=== PATIENT | male | born 1945 | race Caucasian/White ===

== ENCOUNTER 2019-04-03 13:46 | Inpatient (IN) | payer OTHER ==
--- NOTE | 2019-04-03 14:34 | PDOC ---
History of Present Illness - General Chief Complaint: Injury Stated Complaint: FALL Time Seen by Provider: 04/03/19 14:09 - History of Present Illness Initial Comments: 04/03/19 16:14 The patient is a 73 year old male with a history of Afib, CVA, COPD, HTN, HLD who presents for evaluation following a fall. The patient states that he was recently in rehab and discharged home 4 days ago and has been living at home with his daughter. He states that 3 days ago, he fell while sitting on the toilet with head trauma at that time but did not seek medical evaluation at that time. He states that 1 day ago, he slipped out of his chair and fell onto his buttocks and has been unable to ambulate since then due to left hip pain prompting his presentation to the ED for further evaluation. He otherwise denies headache, fevers, chills, SOB, chest pain, nausea, vomiting, abdominal pain, numbness, tingling, or weakness. Past History - Past Medical History Allergies/Adverse Reactions: Allergies Allergy/AdvReac Type Severity Reaction Status Date / Time lisinopril Allergy Verified 04/03/19 14:04 "all prils" Allergy Uncoded 04/03/19 14:04 Home Medications: Ambulatory Orders Aspirin Coated [Ecotrin -] 81 mg PO DAILY 04/03/19 Atorvastatin Calcium 40 mg PO HS 04/03/19 Carvedilol [Coreg -] 3.125 mg PO BID 04/03/19 Colchicine [Colcrys] 0.6 mg PO DAILY 04/03/19 Ferrous Fumarate 324 mg PO DAILY 04/03/19 Folic Acid - 1 mg PO DAILY 04/03/19 Furosemide [Lasix] 40 mg PO DAILY 04/03/19 Ipratropium/Albuterol Sulfate [Iprat-Albut 0.5-3(2.5) mg/3 ml] 3 ml IH QID 04/03 Levothyroxine [Synthroid -] 25 mcg PO DAILY 04/03/19 Melatonin 3 mg PO HS 04/03/19 Pantoprazole Sodium [Protonix -] 40 mg PO DAILY 04/03/19 Tamsulosin HCl [Flomax] 0.4 mg PO DAILY 04/03/19 Thiamine HCl [B-1] 100 mg PO DAILY 04/03/19 predniSONE [Deltasone -] 40 mg PO DAILY 04/03/19 Cardiac Disorders: Yes (a fib) CVA: Yes COPD: Yes HTN: Yes Hypercholesterolemia: Yes Thyroid Disease: Yes (hypo) Other medical history: compression fx T7-12 and L1-L2, former drinker, smoker - Psycho Social/Smoking Cessation Hx Smoking History: Current every day smoker Information on smoking cessation initiated: No Hx Alcohol Use: Yes Review of Systems - Review of Systems Comments:: 04/03/19 16:17 Constitutional: No fevers, chills, fatigue, malaise HEENT: No Rhinorrhea, nasal congestion, visual changes Cardiovascular: No chest pain, syncope, palpitations, lightheadedness Respiratory: No Cough, SOB, Hemoptysis, Gastrointestinal: No Abdominal pain, Nausea, Vomiting, Constipation, Diarrhea, Melena Genitourinary: No Dysuria, Frequency, Urgency, Hesitancy, Hematuria, Flank pain Musculoskeletal: Left hip pain. No Myalgia, arthralgia Skin: No rashes, itching, bruising, pallor Neurologic: No Headache, Dizziness, Numbness, Weakness, or Tingling Psychiatric: No Hallucinations. No SI or HI *Physical Exam - Vital Signs Last Vital Signs Temp Pulse Resp BP Pulse Ox 97.9 F 96 H 22 H 126/77 97 04/03/19 14:06 04/03/19 14:06 04/03/19 14:06 04/03/19 14:06 04/03/19 14:06 - Physical Exam 04/03/19 16:18 General Appearance: Nourished. No Apparent Distress HEENT: EOMI, ALANA. No Pharyngeal Erythema, Tonsillar Exudate, Tonsillar Erythema Neck: No Cervical Lymphadenopathy Respiratory/Chest: Lungs Clear, Normal Breath Sounds. No Crackles, Rales, Rhonchi, Wheezing Cardiovascular: Regular Rhythm, Regular Rate. No Murmur, Gallops, Rubs Gastrointestinal/Abdominal: Normal Bowel Sounds, Soft. No Guarding, Rebound, Tenderness Musculoskeletal: Pain with active and passive movement of the left hip. No tenderness to palpation of the left hip or femur. 2+ dp pulsese bilaterally. Sensation to light touch and temperature intact. 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 Given the patient's history and physical exam, we will obtain a cbc, cmp, troponin, plain films to evaluate further. We will continue to monitor and reassess while here in the ED. 04/03/19 19:32 CBc, cmp, troponin were unremarkable. Plain films did not demonstrate any acute process as read by our radiologist. We obtained CT imaging to evaluate further. Head and cervical spine CT demonstrated no acute findings as read by our radiologist. Pelvis CT demonstrated acute bilateral sacral alae fractures, Chronic appearing right superior and inferior pubuc rami fractures extending into the pelvic tubercle, chronic transvers sacral fracture at S2, chronic compression fracture at L4 and L5 as read by our radiologist. The patient has had continued pain despite morphine and has continued to be unable to ambulate here in the ED. He will require admission for further monitoring and management. Discharge - Discharge Information Problems reviewed: Yes Clinical Impression/Diagnosis: Intractable pain Sacral fracture Qualifiers: Encounter type: initial encounter Zone of sacrum fracture: unspecified portion of sacrum Fracture type: closed Qualified Code(s): S32.10XA - Unspecified fracture of sacrum, initial encounter for closed fracture Condition: Stable - Admission Yes - Follow up/Referral - Patient Discharge Instructions - Post Discharge Activity
[2019-04-03 15:48] LABS: BASO % 0.7 % (0-2.0); HEMATOCRIT 37.2 % (35.4-49); HEMOGLOBIN 12.3 GM/dL (11.7-16.9); LYMPH % 12.3 % (8-40); MCH 28.6 pg (25.7-33.7); MCHC 33.1 g/dl (32.0-35.9); MEAN CELL VOLUME 86.6 fl (80-96); MEAN PLT VOLUME 8.2 fl (7.5-11.1); MONO % 9.5 % (3.8-10.2); NEUT % 72.5 % (42.8-82.8); PLATELET COUNT 369 K/MM3 (134-434); RBC 4.29 M/mm3 (4.00-5.60); RDW 17.8 % (11.9-15.9); WHITE BLOOD COUNT 12.7 K/mm3 (4.0-10.0)
[2019-04-03 16:12] LABS: ALBUMIN 3.3 g/dl (3.4-5.0); ALK PHOS 169 U/L (45-117); ANION GAP 8 MMOL/L (8-16); BILIRUBIN,TOTAL 1.2 mg/dL (0.2-1); BLOOD UREA NITROGEN 17.5 mg/dL (7-18); CALCIUM 9.1 mg/dL (8.5-10.1); CHLORIDE 98 mmol/L (98-107); CO2 31 mmol/L (21-32); CREATININE 1.1 mg/dL (0.55-1.3); GLUCOSE,RANDOM 78 mg/dL (74-106); POTASSIUM 4.2 mmol/L (3.5-5.1); SGOT/AST 22 U/L (15-37); SGPT/ALT 30 U/L (13-61); SODIUM 136 mmol/L (136-145); TOT PROT 7.2 g/dl (6.4-8.2)
[2019-04-03] MEDS ORDERED: ACETAMINOPHEN 1000 MG/100 ML VIAL (NON FORMULARY) IVPB ONE (17:31)
[2019-04-03] MEDS ORDERED: ACETAMINOPHEN INJECTION 100 ML IVPB ONE (17:37)
[2019-04-03] MEDS ORDERED: morphine CARPU-JECT 4 MG/1 ML DISP.SYRIN IVPUSH ONE (18:21)
[2019-04-03] MEDS ORDERED: morphine SULFATE 4 MG/ML VIAL ONE (18:22)
--- NOTE | 2019-04-03 21:23 | HP ---
CHIEF COMPLAINT:hip pain s/p fall PCP: does not have one HISTORY OF PRESENT ILLNESS: 73 yo M PMH of COPD ( on 2L home O2), Afib ( not on AC) , CAD ( s/p stents), CVA (2019), HTN, hypothyroidism, HLD, L hip fx presents to ED s/p fall. pt states that over the past week he has fallen twice. pt states that the first time he fell on Tuesday he was in the bathroom and lost balance and hit his head. The second time he fell was yesterday and he fell off his bed onto his buttock. he states that both times he fell was because of his leg pain. pt denies loss of consciousness both times. he denies chest pain, dizziness, palpitations. pt states that he was recently at a rehab in [place], [place] for a R hip fracture ( 2/2 mechanical fall). Since he left the rehab, he moves in with his daughter who tries to help him. 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 pt states he hasnt followed up witha physician in over 3 years ER course was notable for: (1)head CT negative for acute intracranial pathology (2)CT pelvis- acute vs subacute sacral Fx Recent Travel: denies PAST MEDICAL HISTORY: HTN, COPD ( on 2L O2) , Afib ( not on AC) , CAD ( s/p stents), CVA (2019), HTN , hypothyroidism, HLD, prior L hip fx PAST SURGICAL HISTORY: penile implant cardiac stent tonsillectomy Social History: Smoking: > 40 pk yr hx. quit 1 yr ago Alcohol:use to drink excessively, quit 1 yr ago Drugs: denies Allergies lisinopril Allergy (Verified 04/03/19 14:04) "all prils" Allergy (Uncoded 04/03/19 14:04) HOME MEDICATIONS: Home Medications Medication Instructions Recorded Aspirin Coated [Ecotrin -] 81 mg PO DAILY 04/03/19 Atorvastatin Calcium 40 mg PO HS 04/03/19 Carvedilol [Coreg -] 3.125 mg PO BID 04/03/19 Colchicine [Colcrys] 0.6 mg PO DAILY 04/03/19 Ferrous Fumarate 324 mg PO DAILY 04/03/19 Folic Acid - 1 mg PO DAILY 04/03/19 Furosemide [Lasix] 40 mg PO DAILY 04/03/19 Ipratropium/Albuterol Sulfate 3 ml IH QID 04/03/19 [Iprat-Albut 0.5-3(2.5) mg/3 ml] Levothyroxine [Synthroid -] 25 mcg PO DAILY 04/03/19 Melatonin 3 mg PO HS 04/03/19 Pantoprazole Sodium [Protonix -] 40 mg PO DAILY 04/03/19 Tamsulosin HCl [Flomax] 0.4 mg PO DAILY 04/03/19 Thiamine HCl [B-1] 100 mg PO DAILY 04/03/19 predniSONE [Deltasone -] 40 mg PO DAILY 04/03/19 REVIEW OF SYSTEMS CONSTITUTIONAL: Absent: fever, chills, diaphoresis, generalized weakness, malaise, loss of appetite, weight change HEENT: Absent: rhinorrhea, nasal congestion, throat pain, throat swelling, difficulty swallowing, mouth swelling, ear pain, eye pain, visual changes CARDIOVASCULAR: Absent: chest pain, syncope, palpitations, irregular heart rate, lightheadedness , peripheral edema RESPIRATORY: Absent: cough, shortness of breath, dyspnea with exertion, orthopnea, wheezing, stridor, hemoptysis GASTROINTESTINAL: Present: abdominal distension Absent: abdominal pain, nausea, vomiting, diarrhea, constipation, melena, hematochezia GENITOURINARY: Absent: dysuria, frequency, urgency, hesitancy, hematuria, flank pain, genital pain MUSCULOSKELETAL: Present: b/l leg pain, hip pain b/l Absent: myalgia, arthralgia,neck pain SKIN: Absent: rash, itching, pallor HEMATOLOGIC/IMMUNOLOGIC: Absent: easy bleeding, easy bruising, lymphadenopathy, frequent infections ENDOCRINE: Absent: unexplained weight gain, unexplained weight loss, heat intolerance, cold intolerance NEUROLOGIC: Present: unsteady gait Absent: headache, focal weakness or paresthesias, dizziness, seizure, mental status changes, bladder or bowel incontinence PSYCHIATRIC: Absent: anxiety, depression, suicidal or homicidal ideation, hallucinations. PHYSICAL EXAMINATION Vital Signs - 24 hr 04/03/19 04/03/19 14:06 19:24 Temperature 97.9 F 97.9 F Pulse Rate 96 H Pulse Rate [ 78 Right Radial] Respiratory 22 H Rate Blood Pressure 126/77 Blood Pressure 106/65 [Right Arm] O2 Sat by Pulse 97 94 L Oximetry (%) GENERAL: Awake, alert, and fully oriented, in no acute distress. HEAD: Normal with no signs of trauma. EYES: Pupils equal, round and reactive to light, extraocular movements intact, sclera icteric EARS, NOSE, THROAT: nares patent, oropharynx clear without exudates. Moist mucous membranes. NECK: Normal range of motion, supple without lymphadenopathy LUNGS: Breath sounds equal b/l, scattered wheezes b/l. No accessory muscle use. HEART: Regular rate and rhythm, normal S1 and S2 without murmur, rub or gallop. ABDOMEN: nontender, distended, normoactive bowel sounds, no guarding, no rebound,RUQ hernia palpated. caput medusae noted MUSCULOSKELETAL: decreased ROM at L hip. pelvis is stable and intact, non tender to palpation. no midline or paraspinal tenderness UPPER EXTREMITIES: 2+ pulses, warm, well-perfused. No cyanosis. No clubbing. No peripheral edema. LOWER EXTREMITIES: 2+ pulses, warm, well-perfused. No calf tenderness. No peripheral edema. bruising noted on b/l patellar. multiple scrapes and lesions on legs b/l NEUROLOGICAL: Cranial nerves II-XII intact. Normal speech. gait not observed PSYCHIATRIC: Cooperative. Good eye contact. Appropriate mood and affect. SKIN: Warm, dry, normal turgor, no rashes or lesions noted, normal capillary refill. Laboratory Results - last 24 hr 04/03/19 04/03/19 04/03/19 15:00 15:00 15:00 WBC 12.7 H RBC 4.29 Hgb 12.3 Hct 37.2 MCV 86.6 MCH 28.6 MCHC 33.1 RDW 17.8 H Plt Count 369 MPV 8.2 Absolute Neuts (auto) 9.2 H Neutrophils % 72.5 Lymphocytes % 12.3 Monocytes % 9.5 Eosinophils % 5.0 H Basophils % 0.7 Nucleated RBC % 0 PTT (Actin FS) 35.0 Sodium 136 Potassium 4.2 Chloride 98 Carbon Dioxide 31 Anion Gap 8 BUN 17.5 Creatinine 1.1 Est GFR (CKD-EPI)AfAm 75.71 Est GFR (CKD-EPI)NonAf 65.32 Random Glucose 78 Calcium 9.1 Total Bilirubin 1.2 H AST 22 ALT 30 Alkaline Phosphatase 169 H Troponin I < 0.02 Total Protein 7.2 Albumin 3.3 L Hip Pelvis XR: An AP view of the pelvis and 2 views of the left hip were submitted. The hips appear symmetrical with no sign of fracture or subluxation and no sign of blastic or lytic changes. There are heavy vascular calcifications. There is evidence of old trauma involving the right superior and inferior pubic rami. There is a penile prosthesis. There is nonspecific bowel pattern. If symptoms persist, further imaging may be of help CT pelvis: There is no definite CT evidence of a hip fracture. If there is ongoing clinical concern in this regard additional evaluation utilizing MRI may be performed (reported sensitivity 100%). Bilateral vertical fractures are noted involving the sacral alae which are probably acute or subacute. A transverse sacral fracture is noted at the S2 level which is probably chronic. chronic appearing ununited fractures are noted of the right superior and inferior pubic rami extending into the pelvic tubercle. A mild L4 superior endplate compression fracture is seen of indeterminate age on the basis of this exam. A moderate chronic appearing L5 vertebral body compression fracture is noted. The visualized osseous structures appear diffusely demineralized. A surgical penile prosthesis is seen in place. Air is noted within the urinary bladder lumen - ? recent catheterization. Correlate clinically. CT head: No CT evidence of acute intracranial pathology. CT Cspine No fracture is identified. Please see above. ASSESSMENT/PLAN: 73 yo M PMH of COPD ( on 2L home O2), Afib ( not on AC) , CAD ( s/p stents), CVA (2019), HTN, hypothyroidism, HLD, L hip fx presents to ED s/p fall. Pt is admitted to Medicine for acute vs subacute sacral fracture R hip fracture , acute vs subacute sacral fx - CT pelvis noted above - ortho recommendations appreciated - pain mgmt -PT eval appreciated - avoid BZOs and sedatives/ hypnotics as pt experiences frequent falls. - UTox, ethanol level as pt has hx of abuse. r/o as cause of fall. -orthostatics BP Afib ( currently not on AC) - EKG reviewed , NSR, no ST changes - currently in sinus rhythm and rate approx 77 -not on AC - HAS BLED score of 4 points, high risk for major bleeding -CHADSVASC of 6, moderate- high risk COPD ( on home 2L O2 ) -c/w ipatropium albuterol BID -albuterol prn UTI -although pt is asymptomatic, there is significant pyuria and + UA -pending UCx - levaquin HTN - continue Lasix and coreg Hypothyroidism - will measure TSH - continue Synthroid 25 CAD s/p stenting - continue Asa 81 - continue atorvastatin 40 F/E/N - monitor lytes - low Na diet Dispo: Admit to Medicine Visit type - Emergency Visit Emergency Visit: Yes ED Registration Date: 04/03/19 Care time: The patient presented to the Emergency Department on the above date and was hospitalized for further evaluation of their emergent condition. - New Patient This patient is new to me today: Yes Date on this admission: 04/04/19 - Critical Care Critical Care patient: No ATTENDING PHYSICIAN STATEMENT I saw and evaluated the patient. I reviewed the resident's note and discussed the case with the resident. I agree with the resident's findings and plan as documented. SUBJECTIVE: OBJECTIVE: ASSESSMENT AND PLAN:
--- NOTE | 2019-04-03 22:04 | PN ---
Teaching Attending Note Name of Resident: Abigail Cavanaugh ATTENDING PHYSICIAN STATEMENT I saw and evaluated the patient. I reviewed the resident's note and discussed the case with the resident. I agree with the resident's findings and plan as documented. SUBJECTIVE: 73 year old male, with a significant past medical history of Afib (Not on anticoagulation due to falls), CVA, COPD 2L home o2, HTN, HLD, presented to hospital status post fall Patient has a history of multiple falls. As per patients daughter he was recently discharged home from rehab 5 days ago and since then he has experienced at least two falls. OBJECTIVE: Last Vital Signs Temp Pulse Resp BP Pulse Ox 97.9 F 78 20 100/50 L 98 04/03/19 19:24 04/03/19 22:36 04/03/19 22:36 04/03/19 22:36 04/03/19 22:36 GENERAL: Well developed, well nourished. Awake and alert. No acute distress. HEENT: Normocephalic, atraumatic. PERRLA, EOMI. No conjunctival pallor. Sclera are non- icteric. Moist mucous membranes. Oropharynx is clear. NECK: Supple. Full ROM. No JVD. Carotid pulses 2+ and symmetric, without bruits. No thyromegaly. No lymphadenopathy. CARDIOVASCULAR: Regular rate and rhythm. No murmurs, rubs, or gallops. Distal pulses are 2+ and symmetric. PULMONARY: No evidence of respiratory distress. Lungs clear to auscultation bilaterally. No wheezing, rales or rhonchi. ABDOMINAL: Soft. Non-tender. Non-distended. No rebound or guarding. No organomegaly. Normoactive bowel sounds. MUSCULOSKELETAL Normal range of motion at all joints. No bony deformities or tenderness. No CVA tenderness. EXTREMITIES: No cyanosis. No clubbing. No edema. No calf tenderness. SKIN: Warm and dry. Normal capillary refill. No rashes. No jaundice. PSYCHIATRIC: Cooperative. Good eye contact. Appropriate mood and affect. Abnormal Lab Results 04/03/19 04/03/19 04/03/19 15:00 15:00 22:00 WBC 12.7 H RDW 17.8 H Absolute Neuts (auto) 9.2 H Eosinophils % 5.0 H Total Bilirubin 1.2 H Alkaline Phosphatase 169 H Albumin 3.3 L Urine Nitrite Positive H Ur Leukocyte Esterase 3+ H 04/04/19 00:30 WBC RDW Absolute Neuts (auto) Eosinophils % Total Bilirubin Alkaline Phosphatase Albumin Urine Nitrite Positive H Ur Leukocyte Esterase 3+ H CT of pelvis without contrast is appreciated with report. Bilateral vertical fractures are noted involving the sacral alae which are probably acute or subacute A transverse sacral fracture is noted at the S2 level which is probably chronic Chronic appearing ununited fractures of the right superior and inferior pubic rami extending into the Helbig tubercle Mild L4 superior endplate compression fracture is seen of indeterminate age A moderate chronic appearing L5 vertebral body compression fracture Surgical penile prosthesis is seen Air is noted within the urinary bladder lumen Head CT and C-spine CTs were reviewed and were negative for any fractures ASSESSMENT AND PLAN: 73-year-old man with frequent falls presenting status post fall on buttocks with pelvic imaging showing multiple old fractures and possibly acute or subacute bilateral vertical fracture involving sacral alae.Patient is believed to be a high fall risk and therefore is not anticoagulated for his atrial fibrillation. He must remain bedrest and fall precautions at this time. [facility] Orthopedics evaluation for fracture as described above Bedrest and fall precautions Unable to perform orthostatics due to pain with sitting and inability to stand Pain management with morphine IV Physical therapy evaluation Heparin subcutaneously for DVT prophylaxis Avoid sedatives #Paroxysmal AfibRate controlled Continue with aspirin #COPD -c/w home o2 - 2L -nebs prn dvt ppx
[2019-04-03 22:20] LABS: EPI CELLS 0.5 /HPF (0-5/HPF); HYALINE CASTS 1 /lpf (0-8); PH,URINE 5.5 (5.0-8.0); URINE APPEARANCE TURBID; URINE BACTERIA 1283.8 /hpf (NEGATIVE); URINE BILIRUBIN NEGATIVE (NEGATIVE); URINE COLOR YELLOW; URINE GLUCOSE (UA) NEGATIVE (NEGATIVE); URINE KETONE NEGATIVE (NEGATIVE); URINE LEUK ESTERASE 3+ (NEGATIVE); URINE NITRITE POSITIVE (NEGATIVE); URINE PROTEIN NEGATIVE (NEGATIVE); URINE RBC 8 /hpf (0-4); URINE UROBILINOGEN 0.2 mg/dL (0.2-1.0); URINE WBC 674 /hpf (0-5)
[2019-04-04 01:00] VITALS: BMI 26.9
[2019-04-04 01:41] LABS: EPI CELLS 0.6 /HPF (0-5/HPF); HYALINE CASTS 3 /lpf (0-8); PH,URINE 5.5 (5.0-8.0); URINE APPEARANCE TURBID; URINE BACTERIA 304.2 /hpf (NEGATIVE); URINE BILIRUBIN NEGATIVE (NEGATIVE); URINE COLOR YELLOW; URINE GLUCOSE (UA) NEGATIVE (NEGATIVE); URINE KETONE NEGATIVE (NEGATIVE); URINE LEUK ESTERASE 3+ (NEGATIVE); URINE NITRITE POSITIVE (NEGATIVE); URINE PROTEIN NEGATIVE (NEGATIVE); URINE RBC 7 /hpf (0-4); URINE UROBILINOGEN 0.2 mg/dL (0.2-1.0); URINE WBC 670 /hpf (0-5)
[2019-04-04 01:55] LABS: COCAINE, UR NEGATIVE ng/ml (CUTOFF=300); METHADONE, UR NEGATIVE ng/ml (CUTOFF=300); PHENCYCLIDINE,URINE NEGATIVE ng/ml (CUTOFF=25); URINE AMPHETAMINES NEGATIVE ng/ml (CUTOFF=500); URINE BARBITURATES NEGATIVE ng/ml (CUTOFF=200); URINE BENZODIAZEPINES NEGATIVE ng/ml (CUTOFF=200)
[2019-04-04 02:05] LABS: OPIATES, URI POSITIVE ng/ml (CUTOFF=300)
[2019-04-04] MEDS ORDERED: LEVOTHYROXINE NA 25 MCG TABLET (FP) PO SCH (07:00)
[2019-04-04 07:55] LABS: INR 1.08 (0.83-1.09); PROTHROMBIN TIME (PATIENT) 12.8 SEC (9.7-13.0)
[2019-04-04 07:57] LABS: ACTIVATED PTT 32.3 SECONDS (25.2-36.5)
[2019-04-04] MEDS: ALBUTEROL SO4 2.5/IPRATROPIUM 0.5 INH SOL 3 ML VIAL.NEB. NEB SCH ×4 (08:00→20:56)
[2019-04-04 08:02] LABS: HEMATOCRIT 33.8 % (35.4-49); HEMOGLOBIN 11.3 GM/dL (11.7-16.9); MCH 28.8 pg (25.7-33.7); MCHC 33.5 g/dl (32.0-35.9); MEAN CELL VOLUME 85.8 fl (80-96); MEAN PLT VOLUME 7.6 fl (7.5-11.1); PLATELET COUNT 318 K/MM3 (134-434); RBC 3.94 M/mm3 (4.00-5.60); RDW 17.9 % (11.9-15.9); WHITE BLOOD COUNT 11.2 K/mm3 (4.0-10.0)
[2019-04-04 08:47] LABS: BILIRUBIN,TOTAL 1.2 mg/dL (0.2-1); BLOOD UREA NITROGEN 18.8 mg/dL (7-18); CREATININE 1.2 mg/dL (0.55-1.3); MAGNESIUM 2.2 mg/dL (1.8-2.4); PHOSPHOROUS 3.9 mg/dL (2.5-4.9); TOT PROT 6.4 g/dl (6.4-8.2)
[2019-04-04] MEDS: FOLIC ACID 1 MG TABLET (FP) PO SCH (09:20)
[2019-04-04] MEDS: PANTOPRAZOLE 40 MG TABLET (FP) PO SCH (09:20)
[2019-04-04] MEDS: TAMSULOSIN HCL 0.4 MG CAP PO SCH (09:21)
[2019-04-04] MEDS: COLCHICINE 0.6 MG CAP PO SCH (09:21)
[2019-04-04] MEDS: THIAMINE HCL 100 MG TABLET (FP) PO SCH (09:21)
[2019-04-04] MEDS: ASPIRIN COATED 81 MG TABLET.EC PO SCH (09:21)
[2019-04-04] MEDS: CARVEDILOL 3.125 MG TABLET (FP) PO SCH ×2 (09:51→22:25)
[2019-04-04] MEDS ORDERED: COLCHICINE 0.6 MG PO SCH (10:00)
[2019-04-04] MEDS ORDERED: FUROSEMIDE 40 MG TABLET (FP) PO SCH (10:00)
[2019-04-04] MEDS ORDERED: FLU VACCINE QUAD 60 MCG/0.5 ML (MDV 19-20) IM ONE (10:00)
[2019-04-04] MEDS ORDERED: PNEUMOC 13-VAL CONJ-DIP CRM/PF 0.5 ML DISP.SYRIN IM ONE (10:00)
[2019-04-04] MEDS ORDERED: oxyCODONE HCL 5 MG TABLET PO SCH (10:25)
--- NOTE | 2019-04-04 12:40 | EKG ---
Test Reason : Blood Pressure : / mmHG Vent. Rate : 077 BPM Atrial Rate : 077 BPM P-R Int : 140 ms QRS Dur : 090 ms QT Int : 386 ms P-R-T Axes : 008 097 045 degrees QTc Int : 436 ms SINUS RHYTHM WITH OCCASIONAL PREMATURE VENTRICULAR COMPLEXES RIGHTWARD AXIS LOW VOLTAGE QRS CANNOT RULE OUT ANTERIOR INFARCT , AGE UNDETERMINED ABNORMAL ECG NO PREVIOUS ECGS AVAILABLE Confirmed by ROLANDO JEFFERS, JONNY ([id number]) on 04/04/2019 12:40:46 PM Referred By: Confirmed By:JONNY MARSHALL MD
--- NOTE | 2019-04-04 14:57 | PN ---
Physical Exam: SUBJECTIVE: Patient seen and examined at the bedside. Stated that he continued to have pain predominately in his left hip and more painful when he moves his legs. Denies pain at rest. Noted that he otherwise did not have any acute complaints of cp, sob, abd pain, n/v/c/d, fever, chills, numbness, tingling, headaches, dizziness, lightheadedness. OBJECTIVE: Vital Signs Period Temp Pulse Resp BP Sys/Babb Pulse Ox Last 24 Hr 97.9 F-98.4 F 78-90 16-20 96-106/50-90 90-98 GENERAL: The patient is awake, alert, and fully oriented, in no acute distress. HEAD: Normal with no signs of trauma. EYES: PERRL, extraocular movements intact, sclera anicteric, conjunctiva clear. ENT: Oropharynx clear without exudates, moist mucous membranes. NECK: Trachea midline, full range of motion, supple. LUNGS: Breath sounds equal, with predominant expiratory wheezes, no noted crackles, no accessory muscle use. Was taking pauses in between breaths and was speaking off his NC. HEART: Regular rate and rhythm, S1, S2 without murmur, rub. ABDOMEN: Soft, nontender, nondistended, normoactive bowel sounds, no guarding, no rebound, no masses. EXTREMITIES: 2+ pulses, warm, well-perfused, no edema. Neurovascullarly intact in both LE. NEUROLOGICAL: Cranial nerves II through XII grossly intact. LE motion and strength limited secondary to pain at the hip. UE 5/5 muscle strengt bilaterally PSYCH: Normal mood, normal affect. SKIN: Warm, dry, normal turgor, no rashes or lesions noted. Laboratory Results - last 24 hr 04/03/19 04/03/19 04/03/19 15:00 15:00 15:00 WBC 12.7 H RBC 4.29 Hgb 12.3 Hct 37.2 MCV 86.6 MCH 28.6 MCHC 33.1 RDW 17.8 H Plt Count 369 MPV 8.2 Absolute Neuts (auto) 9.2 H Neutrophils % 72.5 Lymphocytes % 12.3 Monocytes % 9.5 Eosinophils % 5.0 H Basophils % 0.7 Nucleated RBC % 0 PT with INR INR PTT (Actin FS) 35.0 Sodium 136 Potassium 4.2 Chloride 98 Carbon Dioxide 31 Anion Gap 8 BUN 17.5 Creatinine 1.1 Est GFR (CKD-EPI)AfAm 75.71 Est GFR (CKD-EPI)NonAf 65.32 Random Glucose 78 Calcium 9.1 Phosphorus Magnesium Total Bilirubin 1.2 H AST 22 ALT 30 Alkaline Phosphatase 169 H Troponin I < 0.02 Total Protein 7.2 Albumin 3.3 L Vitamin B12 Serum Folate TSH Urine Color Urine Appearance Urine pH Ur Specific [place] Urine Protein Urine Glucose (UA) Urine Ketones Urine Blood Urine Nitrite Urine Bilirubin Urine Urobilinogen Ur Leukocyte Esterase Urine WBC (Auto) Urine RBC (Auto) Urine Casts (Auto) U Epithel Cells (Auto) Urine Bacteria (Auto) Opiates Screen Methadone Screen Barbiturate Screen Phencyclidine Screen Ur Amphetamines Screen MDMA (Ecstasy) Screen Benzodiazepines Screen Cocaine Screen U Marijuana (THC) Screen Alcohol, Quantitative Blood Type Antibody Screen 04/03/19 04/03/19 04/04/19 15:00 22:00 00:30 WBC RBC Hgb Hct MCV MCH MCHC RDW Plt Count MPV Absolute Neuts (auto) Neutrophils % Lymphocytes % Monocytes % Eosinophils % Basophils % Nucleated RBC % PT with INR INR PTT (Actin FS) Sodium Potassium Chloride Carbon Dioxide Anion Gap BUN Creatinine Est GFR (CKD-EPI)AfAm Est GFR (CKD-EPI)NonAf Random Glucose Calcium Phosphorus Magnesium Total Bilirubin AST ALT Alkaline Phosphatase Troponin I Total Protein Albumin Vitamin B12 Serum Folate TSH Urine Color Yellow Urine Appearance Turbid Urine pH 5.5 Ur Specific [place] 1.013 Urine Protein Negative Urine Glucose (UA) Negative Urine Ketones Negative Urine Blood Trace Urine Nitrite Positive H Urine Bilirubin Negative Urine Urobilinogen 0.2 Ur Leukocyte Esterase 3+ H Urine WBC (Auto) 674 Urine RBC (Auto) 8 Urine Casts (Auto) 1 U Epithel Cells (Auto) 0.5 Urine Bacteria (Auto) 1283.8 Opiates Screen Positive A* Methadone Screen Negative Barbiturate Screen Negative Phencyclidine Screen Negative Ur Amphetamines Screen Negative MDMA (Ecstasy) Screen Negative Benzodiazepines Screen Negative Cocaine Screen Negative U Marijuana (THC) Screen Negative Alcohol, Quantitative < 3 Blood Type Antibody Screen 04/04/19 04/04/19 04/04/19 00:30 07:00 07:00 WBC 11.2 H RBC 3.94 L Hgb 11.3 L Hct 33.8 L MCV 85.8 MCH 28.8 MCHC 33.5 RDW 17.9 H Plt Count 318 MPV 7.6 Absolute Neuts (auto) Neutrophils % Lymphocytes % Monocytes % Eosinophils % Basophils % Nucleated RBC % PT with INR 12.80 INR 1.08 PTT (Actin FS) 32.3 Sodium Potassium Chloride Carbon Dioxide Anion Gap BUN Creatinine Est GFR (CKD-EPI)AfAm Est GFR (CKD-EPI)NonAf Random Glucose Calcium Phosphorus Magnesium Total Bilirubin AST ALT Alkaline Phosphatase Troponin I Total Protein Albumin Vitamin B12 Serum Folate TSH Urine Color Yellow Urine Appearance Turbid Urine pH 5.5 Ur Specific [place] 1.013 Urine Protein Negative Urine Glucose (UA) Negative Urine Ketones Negative Urine Blood Trace Urine Nitrite Positive H Urine Bilirubin Negative Urine Urobilinogen 0.2 Ur Leukocyte Esterase 3+ H Urine WBC (Auto) 670 Urine RBC (Auto) 7 Urine Casts (Auto) 3 U Epithel Cells (Auto) 0.6 Urine Bacteria (Auto) 304.2 Opiates Screen Methadone Screen Barbiturate Screen Phencyclidine Screen Ur Amphetamines Screen MDMA (Ecstasy) Screen Benzodiazepines Screen Cocaine Screen U Marijuana (THC) Screen Alcohol, Quantitative Blood Type Antibody Screen 04/04/19 04/04/19 04/04/19 07:00 07:00 12:45 WBC RBC Hgb Hct MCV MCH MCHC RDW Plt Count MPV Absolute Neuts (auto) Neutrophils % Lymphocytes % Monocytes % Eosinophils % Basophils % Nucleated RBC % PT with INR INR PTT (Actin FS) Sodium 136 Potassium 4.0 Chloride 97 L Carbon Dioxide 32 Anion Gap 7 L BUN 18.8 H Creatinine 1.2 Est GFR (CKD-EPI)AfAm 68.15 Est GFR (CKD-EPI)NonAf 58.80 Random Glucose 82 Calcium 9.0 Phosphorus 3.9 Magnesium 2.2 Total Bilirubin 1.2 H AST 18 ALT 25 Alkaline Phosphatase 134 H Troponin I Total Protein 6.4 Albumin 3.0 L Vitamin B12 461 Serum Folate 36 H TSH 15.20 H Urine Color Urine Appearance Urine pH Ur Specific [place] Urine Protein Urine Glucose (UA) Urine Ketones Urine Blood Urine Nitrite Urine Bilirubin Urine Urobilinogen Ur Leukocyte Esterase Urine WBC (Auto) Urine RBC (Auto) Urine Casts (Auto) U Epithel Cells (Auto) Urine Bacteria (Auto) Opiates Screen Methadone Screen Barbiturate Screen Phencyclidine Screen Ur Amphetamines Screen MDMA (Ecstasy) Screen Benzodiazepines Screen Cocaine Screen U Marijuana (THC) Screen Alcohol, Quantitative Blood Type O POSITIVE O POSITIVE Antibody Screen Negative Active Medications Generic Name Dose Route Start Last Admin Trade Name Freq PRN Reason Stop Dose Admin Acetaminophen 650 mg 04/03/19 21:26 Tylenol - PO Q6H PRN PAIN LEVEL 4 - 6 Albuterol/Ipratropium 1 amp 04/04/19 08:00 Duoneb - NEB RQID STEVE Aspirin 81 mg 04/04/19 10:00 04/04/19 09:21 Ecotrin - PO 81 mg DAILY STEVE Administration Atorvastatin Calcium 40 mg 04/04/19 22:00 Lipitor - PO HS STEVE Carvedilol 3.125 mg 04/04/19 10:00 04/04/19 09:51 Coreg - PO Not Given BID STEVE Colchicine 0.6 mg 04/04/19 10:00 04/04/19 09:21 Colcrys PO 0.6 mg DAILY STEVE Administration Folic Acid 1 mg 04/04/19 10:00 04/04/19 09:20 Folic Acid - PO 1 mg DAILY STEVE Administration Furosemide 40 mg 04/04/19 10:00 04/04/19 09:21 Lasix - PO 40 mg DAILY STEVE Administration Levofloxacin 250 mg in 50 mls @ 50 mls/hr 04/04/19 10:00 04/04/19 09:21 Levaquin 250 Mg Premixed Ivpb - IVPB 50 mls/hr DAILY STEVE Administration Protocol Levothyroxine Sodium 37.5 mcg 04/04/19 11:40 Synthroid - PO DAILY@0700 [facility] Melatonin 3 mg 04/04/19 22:00 Melatonin PO HS STEVE Oxycodone HCl 5 mg 04/04/19 10:25 04/04/19 11:17 Roxicodone - PO 04/05/19 16:00 5 mg [employer] STEVE Administration Pantoprazole Sodium 40 mg 04/04/19 10:00 04/04/19 09:20 Protonix - PO 40 mg DAILY STEVE Administration Tamsulosin HCl 0.4 mg 04/04/19 08:30 04/04/19 09:21 Flomax - PO 0.4 mg DAILY@0830 STEVE Administration Thiamine HCl 100 mg 04/04/19 10:00 04/04/19 09:21 Vitamin B1 - PO 100 mg DAILY STEVE Administration Tramadol HCl 50 mg 04/04/19 14:30 Ultram - PO Q6H PRN PAIN LEVEL 6-10 ASSESSMENT/PLAN: Raza Jacobs is a 73 year old male past medical history of COPD (on 2L home O2) , Afib (not on AC), CAD (s/p stents), CVA (2019), HTN, hypothyroidism, HLD, L hip fx presents to ED s/p fall admitted for acute vs subacute sacral fracture. R hip fracture s/p mechanical fall - CT pelvis noting bilateral vertical fractures involving the sacral alae acute vs subacute, chronic transverse sacral fracture at S2m L5 vertebral compression fx, mild L4 superior endplate compression fx - ortho consulted - tramadol 50mg q6h - PT eval - avoid BZOs and sedatives/ hypnotics as pt experiences frequent falls. - UTox, ethanol level negative. 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 - has long-standing hx of falls - EKG reviewed , NSR, no ST changes - currently in sinus rhythm - HAS BLED score of 4 points, high risk for major bleeding - CHADSVASC of 6, moderate- high risk - will need outpatient follow up with drain cleaner COPD - on home 2L O2 - c/w ipatropium albuterol BID - albuterol prn - unable to confirm prednisone, will observe for any adrenal crisis symptoms as cannot start medication without adequate confirmation UTI - although pt is asymptomatic, there is significant pyuria and + UA - pending UCx - levaquin 250mg daily, pending Ucx results HTN - continue Lasix and coreg Hypothyroidism - TSH 15 - increase synthroid to 37.5mcg - will require repeat TSH in 3-4 weeks to ensure adequate dosing CAD s/p stenting - continue Asa 81 - continue atorvastatin 40 Prophylaxis - heparin 5000 units subq tid F/E/N - no standing fluids, encourage PO intake - continue to monitor electrolytes and replete as necessary - sodium controlled diet Dispo - continue to monitor on med-surg Visit type - Emergency Visit Emergency Visit: Yes ED Registration Date: 04/03/19 Care time: The patient presented to the Emergency Department on the above date and was hospitalized for further evaluation of their emergent condition. - New Patient This patient is new to me today: Yes Date on this admission: 04/04/19 - Critical Care Critical Care patient: No
[2019-04-04] MEDS: traMADol HCL 50 MG TABLET PO PRN ×2 (15:06→20:28)
--- NOTE | 2019-04-04 16:18 | PN ---
Teaching Attending Note Name of Resident: Rony Tillman ATTENDING PHYSICIAN STATEMENT I saw and evaluated the patient. I reviewed the resident's note and discussed the case with the resident. I agree with the resident's findings and plan as documented. SUBJECTIVE: Feels well, complains of sacral/coccyx pain, making ambulation difficult. No bladder bowel dysfunction. OBJECTIVE: Afebrile, Hemodynamically Stable. Last Vital Signs Temp Pulse Resp BP Pulse Ox 98.4 F 90 20 103/90 98 04/04/19 14:33 04/04/19 14:33 04/04/19 14:33 04/04/19 14:33 04/04/19 09:00 HEENT - Atraumatic, Normocephalic. Heart -S1, S2, RRR Lungs - clear to auscultation Abdomen - Soft, non-tender. Bowel Sounds normal. Extremities - no calf tenderness Neuro - AAO x 3. Tone/Power normal. MS - T/L spine non-tender on palpation. Laboratory Results - last 24 hr 04/03/19 04/03/19 04/03/19 15:00 15:00 15:00 WBC RBC Hgb Hct MCV MCH MCHC RDW Plt Count MPV PT with INR INR PTT (Actin FS) 35.0 Sodium 136 Potassium 4.2 Chloride 98 Carbon Dioxide 31 Anion Gap 8 BUN 17.5 Creatinine 1.1 Est GFR (CKD-EPI)AfAm 75.71 Est GFR (CKD-EPI)NonAf 65.32 Random Glucose 78 Calcium 9.1 Phosphorus Magnesium Total Bilirubin 1.2 H AST 22 ALT 30 Alkaline Phosphatase 169 H Troponin I < 0.02 Total Protein 7.2 Albumin 3.3 L Vitamin B12 Serum Folate TSH Urine Color Urine Appearance Urine pH Ur Specific [place] Urine Protein Urine Glucose (UA) Urine Ketones Urine Blood Urine Nitrite Urine Bilirubin Urine Urobilinogen Ur Leukocyte Esterase Urine WBC (Auto) Urine RBC (Auto) Urine Casts (Auto) U Epithel Cells (Auto) Urine Bacteria (Auto) Opiates Screen Methadone Screen Barbiturate Screen Phencyclidine Screen Ur Amphetamines Screen MDMA (Ecstasy) Screen Benzodiazepines Screen Cocaine Screen U Marijuana (THC) Screen Alcohol, Quantitative < 3 Blood Type Antibody Screen 04/03/19 04/04/19 04/04/19 22:00 00:30 00:30 WBC RBC Hgb Hct MCV MCH MCHC RDW Plt Count MPV PT with INR INR PTT (Actin FS) Sodium Potassium Chloride Carbon Dioxide Anion Gap BUN Creatinine Est GFR (CKD-EPI)AfAm Est GFR (CKD-EPI)NonAf Random Glucose Calcium Phosphorus Magnesium Total Bilirubin AST ALT Alkaline Phosphatase Troponin I Total Protein Albumin Vitamin B12 Serum Folate TSH Urine Color Yellow Yellow Urine Appearance Turbid Turbid Urine pH 5.5 5.5 Ur Specific [place] 1.013 1.013 Urine Protein Negative Negative Urine Glucose (UA) Negative Negative Urine Ketones Negative Negative Urine Blood Trace Trace Urine Nitrite Positive H Positive H Urine Bilirubin Negative Negative Urine Urobilinogen 0.2 0.2 Ur Leukocyte Esterase 3+ H 3+ H Urine WBC (Auto) 674 670 Urine RBC (Auto) 8 7 Urine Casts (Auto) 1 3 U Epithel Cells (Auto) 0.5 0.6 Urine Bacteria (Auto) 1283.8 304.2 Opiates Screen Positive A* Methadone Screen Negative Barbiturate Screen Negative Phencyclidine Screen Negative Ur Amphetamines Screen Negative MDMA (Ecstasy) Screen Negative Benzodiazepines Screen Negative Cocaine Screen Negative U Marijuana (THC) Screen Negative Alcohol, Quantitative Blood Type Antibody Screen 04/04/19 04/04/19 04/04/19 07:00 07:00 07:00 WBC 11.2 H RBC 3.94 L Hgb 11.3 L Hct 33.8 L MCV 85.8 MCH 28.8 MCHC 33.5 RDW 17.9 H Plt Count 318 MPV 7.6 PT with INR 12.80 INR 1.08 PTT (Actin FS) 32.3 Sodium 136 Potassium 4.0 Chloride 97 L Carbon Dioxide 32 Anion Gap 7 L BUN 18.8 H Creatinine 1.2 Est GFR (CKD-EPI)AfAm 68.15 Est GFR (CKD-EPI)NonAf 58.80 Random Glucose 82 Calcium 9.0 Phosphorus 3.9 Magnesium 2.2 Total Bilirubin 1.2 H AST 18 ALT 25 Alkaline Phosphatase 134 H Troponin I Total Protein 6.4 Albumin 3.0 L Vitamin B12 461 Serum Folate 36 H TSH 15.20 H Urine Color Urine Appearance Urine pH Ur Specific [place] Urine Protein Urine Glucose (UA) Urine Ketones Urine Blood Urine Nitrite Urine Bilirubin Urine Urobilinogen Ur Leukocyte Esterase Urine WBC (Auto) Urine RBC (Auto) Urine Casts (Auto) U Epithel Cells (Auto) Urine Bacteria (Auto) Opiates Screen Methadone Screen Barbiturate Screen Phencyclidine Screen Ur Amphetamines Screen MDMA (Ecstasy) Screen Benzodiazepines Screen Cocaine Screen U Marijuana (THC) Screen Alcohol, Quantitative Blood Type Antibody Screen 04/04/19 04/04/19 07:00 12:45 WBC RBC Hgb Hct MCV MCH MCHC RDW Plt Count MPV PT with INR INR PTT (Actin FS) Sodium Potassium Chloride Carbon Dioxide Anion Gap BUN Creatinine Est GFR (CKD-EPI)AfAm Est GFR (CKD-EPI)NonAf Random Glucose Calcium Phosphorus Magnesium Total Bilirubin AST ALT Alkaline Phosphatase Troponin I Total Protein Albumin Vitamin B12 Serum Folate TSH Urine Color Urine Appearance Urine pH Ur Specific [place] Urine Protein Urine Glucose (UA) Urine Ketones Urine Blood Urine Nitrite Urine Bilirubin Urine Urobilinogen Ur Leukocyte Esterase Urine WBC (Auto) Urine RBC (Auto) Urine Casts (Auto) U Epithel Cells (Auto) Urine Bacteria (Auto) Opiates Screen Methadone Screen Barbiturate Screen Phencyclidine Screen Ur Amphetamines Screen MDMA (Ecstasy) Screen Benzodiazepines Screen Cocaine Screen U Marijuana (THC) Screen Alcohol, Quantitative Blood Type O POSITIVE O POSITIVE Antibody Screen Negative Current Medications Generic Name Dose Route Start Last Admin Trade Name Freq PRN Reason Stop Dose Admin Acetaminophen 650 mg 04/03/19 21:26 Tylenol - PO Q6H PRN PAIN LEVEL 4 - 6 Albuterol/Ipratropium 1 amp 04/04/19 08:00 Duoneb - NEB RQID [facility] Aspirin 81 mg 04/04/19 10:00 04/04/19 09:21 Ecotrin - PO 81 mg DAILY STEVE Administration Atorvastatin Calcium 40 mg 04/04/19 22:00 Lipitor - PO HS [facility] Carvedilol 3.125 mg 04/04/19 10:00 04/04/19 09:51 Coreg - PO Not Given BID STEVE Colchicine 0.6 mg 04/04/19 10:00 04/04/19 09:21 Colcrys PO 0.6 mg DAILY STEVE Administration Folic Acid 1 mg 04/04/19 10:00 04/04/19 09:20 Folic Acid - PO 1 mg DAILY STEVE Administration Furosemide 40 mg 04/04/19 10:00 04/04/19 09:21 Lasix - PO 40 mg DAILY STEVE Administration Heparin Sodium (Porcine) 5,000 unit 04/04/19 22:00 Heparin - SQ TID STEVE Levofloxacin 250 mg in 50 mls @ 50 mls/hr 04/04/19 10:00 04/04/19 09:21 Levaquin 250 Mg Premixed Ivpb - IVPB 50 mls/hr DAILY STEVE Administration Protocol Levothyroxine Sodium 37.5 mcg 04/04/19 11:40 Synthroid - PO DAILY@0700 STEVE Melatonin 3 mg 04/04/19 22:00 Melatonin PO HS [facility] Oxycodone HCl 5 mg 04/04/19 10:25 04/04/19 11:17 Roxicodone - PO 04/05/19 16:00 5 mg [employer] STEVE Administration Pantoprazole Sodium 40 mg 04/04/19 10:00 04/04/19 09:20 Protonix - PO 40 mg DAILY STEVE Administration Tamsulosin HCl 0.4 mg 04/04/19 08:30 04/04/19 09:21 Flomax - PO 0.4 mg DAILY@0830 STEVE Administration Thiamine HCl 100 mg 04/04/19 10:00 04/04/19 09:21 Vitamin B1 - PO 100 mg DAILY STEVE Administration Tramadol HCl 50 mg 04/04/19 14:30 04/04/19 15:06 Ultram - PO 50 mg Q6H PRN Administration PAIN LEVEL 6-10 Home Medications Medication Instructions Recorded Aspirin Coated [Ecotrin -] 81 mg PO DAILY 04/03/19 Atorvastatin Calcium 40 mg PO HS 04/03/19 Carvedilol [Coreg -] 3.125 mg PO BID 04/03/19 Colchicine [Colcrys] 0.6 mg PO DAILY 04/03/19 Ferrous Fumarate 324 mg PO DAILY 04/03/19 Folic Acid - 1 mg PO DAILY 04/03/19 Furosemide [Lasix] 40 mg PO DAILY 04/03/19 Ipratropium/Albuterol Sulfate 3 ml IH QID 04/03/19 [Iprat-Albut 0.5-3(2.5) mg/3 ml] Levothyroxine [Synthroid -] 25 mcg PO DAILY 04/03/19 Melatonin 3 mg PO HS 04/03/19 Pantoprazole Sodium [Protonix -] 40 mg PO DAILY 04/03/19 Tamsulosin HCl [Flomax] 0.4 mg PO DAILY 04/03/19 Thiamine HCl [B-1] 100 mg PO DAILY 04/03/19 predniSONE [Deltasone -] 20 mg PO DAILY 04/03/19 ASSESSMENT AND PLAN: 73 year old male with history of Atrial Fibrillation (not on AC sec to frequent falls), CRF sec to COPD on 2L O2 at home, HTN, HLD, Hypothyroidism, presented with fall on buttocks after recent discharge from Rehab. Denies preceding CP/ palps/lightheadedness. No head injury/LOC. 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 CT Head - no acute intracranial findings. CT C-spine - No fractures. 1. Acute Sacral Fractures sec to Ambulatory Dysfunction/Frequent Falls L4/5 compression fractures on imaging - non-tender on examination, likely chronic. Tramadol prn Ortho consult. PT, may need Rehab/SNF placement. 2. Paroxysmal Atrial fibrillation - continue Coreg and ASA Not on AC due to frequent falls. 3. CRF sec to COPD on 2L O2 via NC Stable, no evidence of acute exacerbation. On prednisone currently ?for gout, will taper. DuoNebs PRN. 4. BPH - Continue Flomax. 5. Hypothyroidism - TSH 15, increase Synthroid dose to 37.5mg 6. HLD - Continue Statin. 7. HTN -Continue Coreg. 8. Gout - on Colchicine for acute gout flare and Prednisone - will start to taper. DVT Px - Heparin SQ
--- NOTE | 2019-04-04 18:13 | CON.ORTH ---
Consult Consult Specialty:: Orthopedics Reason for Consultation:: left hip pain - History of Present Illness History of Present Illness: This is a 73 yo M with PMHx of Afib, CVA, COPD, HTN, and HLD who presented to ED yesterday s/p multiple falls at home this week. Patient states he was recently discharged home from rehab 4 days ago. Since then, he has had two falls where he landed on his buttocks. Recently having pain to left hip with ambulation which prompted his ED visit yesterday. Patient lives at home with his daughter where his ambulates with a walker. Patient primarily complains of left hip pain today. Denies any previous injury to this hip. Denies any numbness , tingling to toes. - History Source History Provided By: Patient Limitations to Obtaining History: No Limitations - Alcohol/Substance Use Hx Alcohol Use: Yes - Smoking History Smoking history: Current every day smoker Home Medications - Allergies Allergies/Adverse Reactions: Allergies Allergy/AdvReac Type Severity Reaction Status Date / Time lisinopril Allergy Verified 04/03/19 14:04 "all prils" Allergy Uncoded 04/03/19 14:04 - Home Medications Home Medications: Ambulatory Orders Aspirin Coated [Ecotrin -] 81 mg PO DAILY 04/03/19 Atorvastatin Calcium 40 mg PO HS 04/03/19 Carvedilol [Coreg -] 3.125 mg PO BID 04/03/19 Colchicine [Colcrys] 0.6 mg PO DAILY 04/03/19 Folic Acid - 1 mg PO DAILY 04/03/19 Furosemide [Lasix] 40 mg PO DAILY 04/03/19 Ipratropium/Albuterol Sulfate [Iprat-Albut 0.5-3(2.5) mg/3 ml] 3 ml IH QID 04/03 Levothyroxine [Synthroid -] 25 mcg PO DAILY 04/03/19 Melatonin 3 mg PO HS 04/03/19 Pantoprazole Sodium [Protonix -] 40 mg PO DAILY 04/03/19 Tamsulosin HCl [Flomax] 0.4 mg PO DAILY 04/03/19 Thiamine HCl [B-1] 100 mg PO DAILY 04/03/19 predniSONE [Deltasone -] 20 mg PO DAILY 04/03/19 Review of Systems - Review of Systems Musculoskeletal: reports: Joint Pain (Left hip pain) Physical Exam for Ortho Vital Signs: Vital Signs Temperature 98.4 F 04/04/19 14:33 Pulse Rate 90 04/04/19 14:33 Respiratory Rate 20 04/04/19 14:33 Blood Pressure 103/90 04/04/19 14:33 O2 Sat by Pulse Oximetry (%) 98 04/04/19 09:00 Constitutional: Yes: Well Nourished, No Distress Labs: CBC, BMP 04/04/19 07:00 04/04/19 07:00 INR, PTT INR 1.08 (0.83-1.09) 04/04/19 07:00 - Lower Extremity Leg: Yes: Left (No skin lesions. No swelling. Pain with flexion of knee and hip. Pain with internal rotation of hip. Tenderness over sacrum and greater tuberosity. Nontender femoral shaft. NVID.) Imaging - Results X-ray: Image Reviewed (XR of left hip and femur show no actue fractures, dislocations or other acute pathology. Moderate degenerative changes of hip and knee joints.) Cat Scan: Report Reviewed (Pelvis CT impression states acute bilateral sacral alae fractures, chronic appearing right superior and inferior pubuc rami fractures extending into the pelvic tubercle, chronic transvers sacral fracture at S2, chronic compression fracture at L4 and L5), Image Reviewed Problem List - Problems (1) Sacral fracture Code(s): S32.10XA - UNSP FRACTURE OF SACRUM, INIT ENCNTR FOR CLOSED FRACTURE Qualifiers: Encounter type: initial encounter Zone of sacrum fracture: unspecified portion of sacrum Fracture type: closed Qualified Code(s): S32.10XA - Unspecified fracture of sacrum, initial encounter for closed fracture Assessment/Plan 73 yo M with PMHx of Afib, CVA, COPD, HTN, and HLD presented to ED yesterday with left hip pain s/p multiple falls at home this week. -Pelvic CT shows acute bilateral sacral alae fractures -XR of left hip and femur do not show any evidence of acute pathology -I discussed treatment with the patient and explained his acute fractures often heal well on their own with conservative treatment -Pain control -Start working with PT, WBAT with walker -F/u as outpatient -Reconsult as needed
--- NOTE | 2019-04-04 19:38 | PDOC ---
Documentation entered by Laly Jj SCRIBE, acting as scribe for Rosalinda Laughlin MD. Rosalinda Laughlin MD: This documentation has been prepared by the Анна cotton Nirvannie, SCRIBE, under my direction and personally reviewed by me in its entirety. I confirm that the documentation accurately reflects all work, treatment, procedures, and medical decision making performed by me. Attending Attestation - Resident Resident Name: Ruben Kim - ED Attending Attestation I have performed the following: I have examined & evaluated the patient, The case was reviewed & discussed with the resident, I agree w/resident's findings & plan, Exceptions are as noted - HPI HPI: 04/03/19 16:46 The patient is a 73 year old male, with a significant past medical history of Afib, CVA, COPD, HTN, HLD, who presents to the emergency department s/p multiple falls. As per patients daughter at bedside, patient was recently discharged home from rehab 4 days ago and since then he has experienced two falls. Daughter notes 3 days ago he fell hitting his head while sitting on the toilet and yesterday he slipped out of the chair falling onto his buttocks. Daughter notes he has been unable to ambulate since the fall secondary to left hip pain, prompting his arrival to the ED. Denies LOC. He denies any dizziness, palpitations, diaphoresis shortness of breath, chest pain, nausea, or vomiting preceding the falls, states "I feel weak" Denies focal weakness/numbness. Allergies: Lisinopril - Physicial Exam PE: 04/03/19 16:33 Agree with resident exam - Medical Decision Making 04/03/19 17:00 73yo M presents to the ED with multiple falls since DC from ID, c/o generalized weakness. No LOC. Pt unable to ambulate. Hip/pelvis XR negative CTH/c-spine negative for acute injury Pt continues to be unable to ambulate, thus will obtain CT pelvis for further evaluation Case signed out to Dr. Sheikh for further mgmt/dispo Anticipate admission if pt continues to be unable to ambulate.
[2019-04-04] MEDS ORDERED: PATIENT'S OWN MEDICATION (NON-FORMULARY) (Melatonin [Melatonin] 3 MG) PO SCH (22:00)
[2019-04-04] MEDS: MELATONIN 1 MG TABLET PO SCH (22:30)
[2019-04-04] MEDS: ATORVASTATIN CA 40 MG TABLET (FP) PO SCH (22:35)
[2019-04-04] MEDS: HEPARIN NA (PORCINE) 5,000 UNITS/ML 1ML VIAL SQ SCH (22:57)
[2019-04-05] MEDS ORDERED: SODIUM CHLORIDE 500 ML IV STA (01:25)
[2019-04-05] MEDS: HEPARIN NA (PORCINE) 5,000 UNITS/ML 1ML VIAL SQ SCH ×3 (06:27→22:18)
[2019-04-05] MEDS: LEVOTHYROXINE NA 25 MCG TABLET (FP) PO SCH (06:27)
[2019-04-05] MEDS: ALBUTEROL SO4 2.5/IPRATROPIUM 0.5 INH SOL 3 ML VIAL.NEB. NEB SCH ×4 (07:37→20:01)
[2019-04-05 07:54] LABS: HEMATOCRIT 31.6 % (35.4-49); HEMOGLOBIN 10.7 GM/dL (11.7-16.9); MCH 28.8 pg (25.7-33.7); MCHC 33.8 g/dl (32.0-35.9); MEAN CELL VOLUME 85.3 fl (80-96); MEAN PLT VOLUME 7.7 fl (7.5-11.1); PLATELET COUNT 263 K/MM3 (134-434); RBC 3.71 M/mm3 (4.00-5.60); RDW 17.5 % (11.9-15.9); WHITE BLOOD COUNT 7.6 K/mm3 (4.0-10.0)
[2019-04-05 08:18] LABS: BLOOD UREA NITROGEN 18.2 mg/dL (7-18); CALCIUM 8.6 mg/dL (8.5-10.1); CREATININE 1.2 mg/dL (0.55-1.3); POTASSIUM 3.9 mmol/L (3.5-5.1)
[2019-04-05] MEDS: TAMSULOSIN HCL 0.4 MG CAP PO SCH (08:31)
[2019-04-05] MEDS: THIAMINE HCL 100 MG TABLET (FP) PO SCH (09:04)
[2019-04-05] MEDS: COLCHICINE 0.6 MG CAP PO SCH (09:04)
[2019-04-05] MEDS: ASPIRIN COATED 81 MG TABLET.EC PO SCH (09:05)
[2019-04-05] MEDS: traMADol HCL 50 MG TABLET PO PRN ×2 (09:05→22:17)
[2019-04-05] MEDS: PANTOPRAZOLE 40 MG TABLET (FP) PO SCH (09:05)
[2019-04-05] MEDS: FOLIC ACID 1 MG TABLET (FP) PO SCH (09:05)
[2019-04-05] MEDS ORDERED: predniSONE 20 MG TABLET (UD) PO SCH (10:00)
[2019-04-05] MEDS ORDERED: cefTRIAXone SODIUM 1 GM VIAL ONE (11:34)
[2019-04-05] MEDS ORDERED: DEXTROSE 5%-WATER - 50 ML IVPB ONE (11:34)
[2019-04-05] MEDS: CEFTRIAXONE 1 GM in DEXTROSE 5%-WATER - 50 ML IVPB SCH (11:37)
--- NOTE | 2019-04-05 12:58 | PN ---
Physical Exam: SUBJECTIVE: Patient seen and examined at the bedside. Noted that he still had pain in his hip but it was well controlled with pain medications. Denied cp, sob , abd pain, n/v/c/d, headaches, dizziness, lightheadedness, fevers, chills, numbness, tingling. OBJECTIVE: Vital Signs Period Temp Pulse Resp BP Sys/Babb Pulse Ox Last 24 Hr 97.8 F-98.8 F 65-90 20-20 89-120/40-90 98-99 GENERAL: The patient is awake, alert, and fully oriented, in no acute distress. HEAD: Normal with no signs of trauma. EYES: PERRL, extraocular movements intact, sclera anicteric, conjunctiva clear. ENT: Oropharynx clear without exudates, moist mucous membranes. NECK: Trachea midline, full range of motion, supple. LUNGS: Breath sounds equal, with predominant expiratory wheezes, no noted crackles, no accessory muscle use. HEART: Regular rate and rhythm, S1, S2 without murmur, rub. ABDOMEN: Soft, nontender, nondistended, normoactive bowel sounds, no guarding, no rebound, no masses. EXTREMITIES: 2+ pulses, warm, well-perfused, no edema. Neurovascullarly intact in both LE. NEUROLOGICAL: Cranial nerves II through XII grossly intact. LE motion and strength limited secondary to pain at the hip. UE 5/5 muscle strength bilaterally PSYCH: Normal mood, normal affect. SKIN: Warm, dry, normal turgor, no rashes or lesions noted. Laboratory Results - last 24 hr 04/04/19 04/05/19 04/05/19 12:45 06:45 06:45 WBC 7.6 RBC 3.71 L Hgb 10.7 L Hct 31.6 L MCV 85.3 MCH 28.8 MCHC 33.8 RDW 17.5 H Plt Count 263 MPV 7.7 Sodium 133 L Potassium 3.9 Chloride 98 Carbon Dioxide 28 Anion Gap 7 L BUN 18.2 H Creatinine 1.2 Est GFR (CKD-EPI)AfAm 68.15 Est GFR (CKD-EPI)NonAf 58.80 Random Glucose 105 Calcium 8.6 Magnesium 2.0 Blood Type O POSITIVE Active Medications Generic Name Dose Route Start Last Admin Trade Name Freq PRN Reason Stop Dose Admin Acetaminophen 650 mg 04/03/19 21:26 Tylenol - PO Q6H PRN PAIN LEVEL 4 - 6 Albuterol/Ipratropium 1 amp 04/04/19 08:00 04/05/19 11:38 Duoneb - NEB 1 amp RQID STEVE Administration Aspirin 81 mg 04/04/19 10:00 04/05/19 09:05 Ecotrin - PO 81 mg DAILY STEVE Administration Atorvastatin Calcium 40 mg 04/04/19 22:00 04/04/19 22:35 Lipitor - PO 40 mg HS STEVE Administration Carvedilol 3.125 mg 04/04/19 10:00 04/04/19 22:25 Coreg - PO 3.125 mg BID STEVE Administration Folic Acid 1 mg 04/04/19 10:00 04/05/19 09:05 Folic Acid - PO 1 mg DAILY STEVE Administration Heparin Sodium (Porcine) 5,000 unit 04/04/19 22:00 04/05/19 06:27 Heparin - SQ 5,000 unit TID STEVE Administration Ceftriaxone Sodium 1 gm/ 50 mls @ 200 mls/hr 04/05/19 11:30 04/05/19 11:37 Dextrose IVPB 200 mls/hr DAILY STEVE Administration Protocol Levothyroxine Sodium 37.5 mcg 04/04/19 11:40 04/05/19 06:27 Synthroid - PO 37.5 mcg DAILY@0700 STEVE Administration Melatonin 3 mg 04/04/19 22:00 04/04/19 22:30 Melatonin PO 3 mg HS STEVE Administration Pantoprazole Sodium 40 mg 04/04/19 10:00 04/05/19 09:05 Protonix - PO 40 mg DAILY STEVE Administration Prednisone 15 mg 04/06/19 10:00 Deltasone - PO DAILY STEVE Tamsulosin HCl 0.4 mg 04/04/19 08:30 04/05/19 08:31 Flomax - PO 0.4 mg DAILY@0830 STEVE Administration Thiamine HCl 100 mg 04/04/19 10:00 04/05/19 09:04 Vitamin B1 - PO 100 mg DAILY STEVE Administration Tramadol HCl 50 mg 04/04/19 14:30 04/05/19 09:05 Ultram - PO 50 mg Q6H PRN Administration PAIN LEVEL 6-10 ASSESSMENT/PLAN: Gregory Jacobs is a 73 year old male past medical history of COPD (on 2L home O2) , Afib (not on AC), CAD (s/p stents), CVA (2019), HTN, hypothyroidism, HLD, L hip fx presents to ED s/p fall admitted for acute vs subacute sacral fracture. R hip fracture s/p mechanical fall - CT pelvis noting bilateral vertical fractures involving the sacral alae acute vs subacute, chronic transverse sacral fracture at S2m L5 vertebral compression fx, mild L4 superior endplate compression fx - ortho consulted, recs appreciated, WBAT with walker, pain control, PT - tramadol 50mg q6h - PT eval, poor mobility, will require rehab - avoid BZOs and sedatives/ hypnotics as pt experiences frequent falls. - UTox, ethanol level negative. only positive for opiates but Utox taken after patient was given opiate pain medications - CT head negative for acute path in regard to fall with head hit Afib - not currently on AC as per patient's instructional manager/PCP - has long-standing hx of falls - EKG reviewed , NSR, no ST changes - currently in sinus rhythm - HAS BLED score of 4 points, high risk for major bleeding - CHADSVASC of 6, moderate- high risk - will need outpatient follow up with instructional manager COPD - on home 2L O2 - c/w ipatropium albuterol BID - albuterol prn UTI - significant pyuria and + UA - Ucx growing lactose fermenting GNB - ceftriaxone 1g daily - kidney/bladder U/S HTN - continue Lasix and coreg Hypothyroidism - TSH 15 - increase synthroid to 37.5mcg - will require repeat TSH in 3-4 weeks to ensure adequate dosing CAD s/p stenting - continue Asa 81 - continue atorvastatin 40 Hx of Gout - last day of colchine - as per Yaw Rodriguez [place], patient was placed on prednisone 20mg daily with no stop date - received 20mg daily and will taper by 5mg every 3 days Prophylaxis - heparin 5000 units subq tid F/E/N - no standing fluids, encourage PO intake - continue to monitor electrolytes and replete as necessary - sodium controlled diet Dispo - continue to monitor on med-surg - will require SNF Visit type - Emergency Visit Emergency Visit: Yes ED Registration Date: 04/03/19 Care time: The patient presented to the Emergency Department on the above date and was hospitalized for further evaluation of their emergent condition. - New Patient This patient is new to me today: No - Critical Care Critical Care patient: No
--- NOTE | 2019-04-05 13:07 | PN ---
Teaching Attending Note Name of Resident: Rony Tillman ATTENDING PHYSICIAN STATEMENT I saw and evaluated the patient. I reviewed the resident's note and discussed the case with the resident. I agree with the resident's findings and plan as documented. SUBJECTIVE: Feels well, ongoing sacral/coccyx pain, making ambulation difficult. No bladder bowel dysfunction. OBJECTIVE: Afebrile, Hemodynamically Stable. Last Vital Signs Temp Pulse Resp BP Pulse Ox 97.9 F 65 20 120/78 99 04/05/19 10:00 04/05/19 10:00 04/05/19 10:00 04/05/19 10:00 04/05/19 09:00 Heart -S1, S2, RRR Lungs - clear to auscultation Abdomen - Soft, non-tender. Bowel Sounds normal. Extremities - no calf tenderness Neuro - AAO x 3. Tone/Power normal. MS - T/L spine non-tender on palpation. Laboratory Results - last 24 hr 04/04/19 04/05/19 04/05/19 12:45 06:45 06:45 WBC 7.6 RBC 3.71 L Hgb 10.7 L Hct 31.6 L MCV 85.3 MCH 28.8 MCHC 33.8 RDW 17.5 H Plt Count 263 MPV 7.7 Sodium 133 L Potassium 3.9 Chloride 98 Carbon Dioxide 28 Anion Gap 7 L BUN 18.2 H Creatinine 1.2 Est GFR (CKD-EPI)AfAm 68.15 Est GFR (CKD-EPI)NonAf 58.80 Random Glucose 105 Calcium 8.6 Magnesium 2.0 Blood Type O POSITIVE Current Medications Generic Name Dose Route Start Last Admin Trade Name Devq PRN Reason Stop Dose Admin Acetaminophen 650 mg 04/03/19 21:26 Tylenol - PO Q6H PRN PAIN LEVEL 4 - 6 Albuterol/Ipratropium 1 amp 04/04/19 08:00 04/05/19 11:38 Duoneb - NEB 1 amp RQID STEVE Administration Aspirin 81 mg 04/04/19 10:00 04/05/19 09:05 Ecotrin - PO 81 mg DAILY STEVE Administration Atorvastatin Calcium 40 mg 04/04/19 22:00 04/04/19 22:35 Lipitor - PO 40 mg HS STEVE Administration Carvedilol 3.125 mg 04/04/19 10:00 04/04/19 22:25 Coreg - PO 3.125 mg BID STEVE Administration Folic Acid 1 mg 04/04/19 10:00 04/05/19 09:05 Folic Acid - PO 1 mg DAILY STEVE Administration Heparin Sodium (Porcine) 5,000 unit 04/04/19 22:00 04/05/19 06:27 Heparin - SQ 5,000 unit TID STEVE Administration Ceftriaxone Sodium 1 gm/ 50 mls @ 200 mls/hr 04/05/19 11:30 04/05/19 11:37 Dextrose IVPB 200 mls/hr DAILY STEVE Administration Protocol Levothyroxine Sodium 37.5 mcg 04/04/19 11:40 04/05/19 06:27 Synthroid - PO 37.5 mcg DAILY@0700 STEVE Administration Melatonin 3 mg 04/04/19 22:00 04/04/19 22:30 Melatonin PO 3 mg HS STEVE Administration Pantoprazole Sodium 40 mg 04/04/19 10:00 04/05/19 09:05 Protonix - PO 40 mg DAILY STEVE Administration Prednisone 15 mg 04/06/19 10:00 Deltasone - PO DAILY [facility] Tamsulosin HCl 0.4 mg 04/04/19 08:30 04/05/19 08:31 Flomax - PO 0.4 mg DAILY@0830 [facility] Administration Thiamine HCl 100 mg 04/04/19 10:00 04/05/19 09:04 Vitamin B1 - PO 100 mg DAILY [facility] Administration Tramadol HCl 50 mg 04/04/19 14:30 04/05/19 09:05 Ultram - PO 50 mg Q6H PRN Administration PAIN LEVEL 6-10 Home Medications Medication Instructions Recorded Aspirin Coated [Ecotrin -] 81 mg PO DAILY 04/03/19 Atorvastatin Calcium 40 mg PO HS 04/03/19 Carvedilol [Coreg -] 3.125 mg PO BID 04/03/19 Colchicine [Colcrys] 0.6 mg PO DAILY 04/03/19 Folic Acid - 1 mg PO DAILY 04/03/19 Furosemide [Lasix] 40 mg PO DAILY 04/03/19 Ipratropium/Albuterol Sulfate 3 ml IH QID 04/03/19 [Iprat-Albut 0.5-3(2.5) mg/3 ml] Levothyroxine [Synthroid -] 25 mcg PO DAILY 04/03/19 Melatonin 3 mg PO HS 04/03/19 Pantoprazole Sodium [Protonix -] 40 mg PO DAILY 04/03/19 Tamsulosin HCl [Flomax] 0.4 mg PO DAILY 04/03/19 Thiamine HCl [B-1] 100 mg PO DAILY 04/03/19 predniSONE [Deltasone -] 20 mg PO DAILY 04/03/19 ASSESSMENT AND PLAN: 73 year old male with history of Atrial Fibrillation (not on AC sec to frequent falls), CRF sec to COPD on 2L O2 at home, HTN, HLD, Hypothyroidism, presented with fall on buttocks after recent discharge from Rehab. Denies preceding CP/ palps/lightheadedness. No head injury/LOC. 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 CT Head - no acute intracranial findings. CT C-spine - No fractures. 1. Acute Sacral Fractures sec to Ambulatory Dysfunction/Frequent Falls L4/5 compression fractures on imaging - non-tender on examination, likely chronic. Tramadol prn Ortho evaluated - no intervention indicated - for PT/WBAT. Awaiting Rehab/SNF placement/authorization. 2. UTI - Urine Cx positive for LFNB. Will start on Ceftriaxone pending final ID and sensitivity 3. CRF sec to COPD on 2L O2 via NC Stable, no evidence of acute exacerbation. On prednisone currently ?for gout, will taper. DuoNebs PRN. 4. BPH - Continue Flomax. 5. Hypothyroidism - TSH 15, increase Synthroid dose to 37.5mg 6. HLD - Continue Statin. 7. HTN -Continue Coreg. 8. Gout - last day of Colchicine course for acute gout flare. Start to taper Prednisone. 9. Paroxysmal Atrial fibrillation - continue Coreg and ASA Not on AC due to frequent falls. DVT Px - Heparin SQ
[2019-04-05] MEDS: ATORVASTATIN CA 40 MG TABLET (FP) PO SCH (22:18)
[2019-04-05] MEDS: MELATONIN 1 MG TABLET PO SCH (22:18)
[2019-04-06] MEDS: traMADol HCL 50 MG TABLET PO PRN ×3 (06:19→21:40)
[2019-04-06] MEDS: HEPARIN NA (PORCINE) 5,000 UNITS/ML 1ML VIAL SQ SCH ×3 (06:19→21:41)
[2019-04-06] MEDS: LEVOTHYROXINE NA 25 MCG TABLET (FP) PO SCH (06:20)
[2019-04-06] MEDS: ALBUTEROL SO4 2.5/IPRATROPIUM 0.5 INH SOL 3 ML VIAL.NEB. NEB SCH ×4 (07:30→20:30)
[2019-04-06 08:23] LABS: HEMATOCRIT 30.9 % (35.4-49); HEMOGLOBIN 10.4 GM/dL (11.7-16.9); MCH 28.6 pg (25.7-33.7); MCHC 33.5 g/dl (32.0-35.9); MEAN CELL VOLUME 85.2 fl (80-96); PLATELET COUNT 248 K/MM3 (134-434); RBC 3.63 M/mm3 (4.00-5.60); RDW 17.4 % (11.9-15.9); WHITE BLOOD COUNT 8.4 K/mm3 (4.0-10.0)
[2019-04-06 08:29] LABS: BLOOD UREA NITROGEN 16.9 mg/dL (7-18); MAGNESIUM 2.2 mg/dL (1.8-2.4); POTASSIUM 3.9 mmol/L (3.5-5.1)
[2019-04-06] MEDS ORDERED: DEXTROSE 5%-WATER - 50 ML IVPB ONE (08:54)
[2019-04-06] MEDS ORDERED: cefTRIAXone SODIUM 1 GM VIAL ONE (08:54)
[2019-04-06] MEDS: CARVEDILOL 3.125 MG TABLET (FP) PO SCH ×2 (09:28→21:41)
[2019-04-06] MEDS: TAMSULOSIN HCL 0.4 MG CAP PO SCH (09:28)
[2019-04-06] MEDS: PANTOPRAZOLE 40 MG TABLET (FP) PO SCH (09:28)
[2019-04-06] MEDS: ASPIRIN COATED 81 MG TABLET.EC PO SCH (09:28)
[2019-04-06] MEDS: FOLIC ACID 1 MG TABLET (FP) PO SCH (09:28)
[2019-04-06] MEDS: predniSONE 10 MG TABLET (UD) PO SCH (09:29)
[2019-04-06] MEDS: THIAMINE HCL 100 MG TABLET (FP) PO SCH (09:29)
[2019-04-06] MEDS: CEFTRIAXONE 1 GM in DEXTROSE 5%-WATER - 50 ML IVPB SCH (09:30)
--- NOTE | 2019-04-06 13:21 | PN ---
Teaching Attending Note Name of Resident: Rony Tillman ATTENDING PHYSICIAN STATEMENT I saw and evaluated the patient. I reviewed the resident's note and discussed the case with the resident. I agree with the resident's findings and plan as documented. SUBJECTIVE: Feels well, some improvement in sacral/coccyx pain. No bladder bowel dysfunction. OBJECTIVE: Afebrile, Hemodynamically Stable. Last Vital Signs Temp Pulse Resp BP Pulse Ox 98.1 F 74 20 107/70 95 04/06/19 08:30 04/06/19 08:30 04/06/19 09:00 04/06/19 08:30 04/06/19 09:00 Heart -S1, S2, RRR Lungs - clear to auscultation Abdomen - Soft, non-tender. Bowel Sounds normal. Extremities - no calf tenderness Neuro - AAO x 3. Tone/Power normal. MS - T/L spine non-tender on palpation. Laboratory Results - last 24 hr 04/06/19 04/06/19 06:57 06:57 WBC 8.4 RBC 3.63 L Hgb 10.4 L Hct 30.9 L MCV 85.2 MCH 28.6 MCHC 33.5 RDW 17.4 H Plt Count 248 MPV 8.0 Sodium 134 L Potassium 3.9 Chloride 99 Carbon Dioxide 29 Anion Gap 6 L BUN 16.9 Creatinine 1.0 Est GFR (CKD-EPI)AfAm 84.95 Est GFR (CKD-EPI)NonAf 73.30 Random Glucose 92 Calcium 9.0 Magnesium 2.2 Current Medications Generic Name Dose Route Start Last Admin Trade Name Freq PRN Reason Stop Dose Admin Acetaminophen 650 mg 04/03/19 21:26 Tylenol - PO Q6H PRN PAIN LEVEL 4 - 6 Albuterol/Ipratropium 1 amp 04/04/19 08:00 04/06/19 11:38 Duoneb - NEB Not Given RQID STEVE Aspirin 81 mg 04/04/19 10:00 04/06/19 09:28 Ecotrin - PO 81 mg DAILY STEVE Administration Atorvastatin Calcium 40 mg 04/04/19 22:00 04/05/19 22:18 Lipitor - PO 40 mg HS STEVE Administration Carvedilol 3.125 mg 04/04/19 10:00 04/06/19 09:28 Coreg - PO 3.125 mg BID STEVE Administration Folic Acid 1 mg 04/04/19 10:00 04/06/19 09:28 Folic Acid - PO 1 mg DAILY STEVE Administration Heparin Sodium (Porcine) 5,000 unit 04/04/19 22:00 04/06/19 06:19 Heparin - SQ 5,000 unit TID STEVE Administration Ceftriaxone Sodium 1 gm/ 50 mls @ 200 mls/hr 04/05/19 11:30 04/06/19 09:30 Dextrose IVPB 200 mls/hr DAILY STEVE Administration Protocol Levothyroxine Sodium 37.5 mcg 04/04/19 11:40 04/06/19 06:20 Synthroid - PO 37.5 mcg DAILY@0700 STEVE Administration Melatonin 3 mg 04/04/19 22:00 04/05/19 22:18 Melatonin PO 3 mg HS STEVE Administration Pantoprazole Sodium 40 mg 04/04/19 10:00 04/06/19 09:28 Protonix - PO 40 mg DAILY STEVE Administration Prednisone 15 mg 04/06/19 10:00 04/06/19 09:29 Deltasone - PO 15 mg DAILY STEVE Administration Tamsulosin HCl 0.4 mg 04/04/19 08:30 04/06/19 09:28 Flomax - PO 0.4 mg DAILY@0830 STEVE Administration Thiamine HCl 100 mg 04/04/19 10:00 04/06/19 09:29 Vitamin B1 - PO 100 mg DAILY STEVE Administration Tramadol HCl 50 mg 04/04/19 14:30 04/06/19 06:19 Ultram - PO 50 mg Q6H PRN Administration PAIN LEVEL 6-10 Home Medications Medication Instructions Recorded Aspirin Coated [Ecotrin -] 81 mg PO DAILY 04/03/19 Atorvastatin Calcium 40 mg PO HS 04/03/19 Carvedilol [Coreg -] 3.125 mg PO BID 04/03/19 Colchicine [Colcrys] 0.6 mg PO DAILY 04/03/19 Folic Acid - 1 mg PO DAILY 04/03/19 Furosemide [Lasix] 40 mg PO DAILY 04/03/19 Ipratropium/Albuterol Sulfate 3 ml IH QID 04/03/19 [Iprat-Albut 0.5-3(2.5) mg/3 ml] Levothyroxine [Synthroid -] 25 mcg PO DAILY 04/03/19 Melatonin 3 mg PO HS 04/03/19 Pantoprazole Sodium [Protonix -] 40 mg PO DAILY 04/03/19 Tamsulosin HCl [Flomax] 0.4 mg PO DAILY 04/03/19 Thiamine HCl [B-1] 100 mg PO DAILY 04/03/19 predniSONE [Deltasone -] 20 mg PO DAILY 04/03/19 ASSESSMENT AND PLAN: 73 year old male with history of Atrial Fibrillation (not on AC sec to frequent falls), CRF sec to COPD on 2L O2 at home, HTN, HLD, Hypothyroidism, presented with fall on buttocks after recent discharge from Rehab. Denies preceding CP/ palps/lightheadedness. No head injury/LOC. 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 CT Head - no acute intracranial findings. CT C-spine - No fractures. 1. Acute Sacral Fractures sec to Ambulatory Dysfunction/Frequent Falls L4/5 compression fractures on imaging - non-tender on examination, likely chronic. Tramadol prn Ortho consulted - conservative management - recommend PT/WBAT PT, recommends Rehab/SNF 2. UTI - Urine Cx Klebsiella Started on Ceftriaxone (Day 2) Afebrile, Hemodyncamically Stable. Renal US - no renal abnormality, large post-void residual. On Flomax for BPH. Urology follow up as out-patient. 3. Paroxysmal Atrial fibrillation - continue Coreg and ASA Not on AC due to frequent falls. 4. CRF sec to COPD on 2L O2 via [place] Stable, no evidence of acute exacerbation. On prednisone currently ?for gout, taper started. DuoNebs PRN. 5. Hypothyroidism - TSH 15, Synthroid dose increased to 37.5mg 6. HLD - Continue Statin. 7. HTN -Continue Coreg. 8. Gout - on Colchicine for acute gout flare and Prednisone taper. 9. BPH - Continue Flomax. DVT Px - Heparin SQ
--- NOTE | 2019-04-06 16:30 | PN ---
Physical Exam: SUBJECTIVE: Patient seen and examined at the bedside. Noting that his pain is better controlled today but still mobility of R side of hip is limited due to pain. Stated that he was not able to tolerate PT well yesterday but is eager to continue. Endorsed good appetite. Denied cp, sob, abd pain, n/v/c/d, fever, chills, numbness, tingling, headaches, dizziness, lightheadedness. OBJECTIVE: Vital Signs Period Temp Pulse Resp BP Sys/Babb Pulse Ox Last 24 Hr 97.6 F-98.5 F 62-96 20-20 101-110/51-70 95-95 GENERAL: The patient is awake, alert, and fully oriented, in no acute distress. HEAD: Normal with no signs of trauma. EYES: PERRL, extraocular movements intact, sclera anicteric, conjunctiva clear. ENT: Oropharynx clear without exudates, moist mucous membranes. NECK: Trachea midline, full range of motion, supple. LUNGS: Breath sounds equal, with predominant expiratory wheezes, no noted crackles, no accessory muscle use. HEART: Regular rate and rhythm, S1, S2 without murmur, rub. ABDOMEN: Soft, nontender, nondistended, normoactive bowel sounds, no guarding, no rebound, no masses. EXTREMITIES: 2+ pulses, warm, well-perfused, no edema. Neurovascullarly intact in both LE. NEUROLOGICAL: Cranial nerves II through XII grossly intact. LE motion and strength limited secondary to pain at the hip. UE 5/5 muscle strength bilaterally PSYCH: Normal mood, normal affect. SKIN: Warm, dry, normal turgor, no rashes or lesions noted. Laboratory Results - last 24 hr 04/06/19 04/06/19 06:57 06:57 WBC 8.4 RBC 3.63 L Hgb 10.4 L Hct 30.9 L MCV 85.2 MCH 28.6 MCHC 33.5 RDW 17.4 H Plt Count 248 MPV 8.0 Sodium 134 L Potassium 3.9 Chloride 99 Carbon Dioxide 29 Anion Gap 6 L BUN 16.9 Creatinine 1.0 Est GFR (CKD-EPI)AfAm 84.95 Est GFR (CKD-EPI)NonAf 73.30 Random Glucose 92 Calcium 9.0 Magnesium 2.2 Active Medications Generic Name Dose Route Start Last Admin Trade Name Freq PRN Reason Stop Dose Admin Acetaminophen 650 mg 04/03/19 21:26 Tylenol - PO Q6H PRN PAIN LEVEL 4 - 6 Albuterol/Ipratropium 1 amp 04/04/19 08:00 04/06/19 11:38 Duoneb - NEB Not Given RQID STEVE Aspirin 81 mg 04/04/19 10:00 04/06/19 09:28 Ecotrin - PO 81 mg DAILY STEVE Administration Atorvastatin Calcium 40 mg 04/04/19 22:00 04/05/19 22:18 Lipitor - PO 40 mg HS STEVE Administration Carvedilol 3.125 mg 04/04/19 10:00 04/06/19 09:28 Coreg - PO 3.125 mg BID STEVE Administration Folic Acid 1 mg 04/04/19 10:00 04/06/19 09:28 Folic Acid - PO 1 mg DAILY STEVE Administration Heparin Sodium (Porcine) 5,000 unit 04/04/19 22:00 04/06/19 13:20 Heparin - SQ 5,000 unit TID STEVE Administration Ceftriaxone Sodium 1 gm/ 50 mls @ 200 mls/hr 04/05/19 11:30 04/06/19 09:30 Dextrose IVPB 200 mls/hr DAILY STEVE Administration Protocol Levothyroxine Sodium 37.5 mcg 04/04/19 11:40 04/06/19 06:20 Synthroid - PO 37.5 mcg DAILY@0700 STEVE Administration Melatonin 3 mg 04/04/19 22:00 04/05/19 22:18 Melatonin PO 3 mg HS STEVE Administration Pantoprazole Sodium 40 mg 04/04/19 10:00 04/06/19 09:28 Protonix - PO 40 mg DAILY STEVE Administration Prednisone 15 mg 04/06/19 10:00 04/06/19 09:29 Deltasone - PO 15 mg DAILY STEVE Administration Tamsulosin HCl 0.4 mg 04/04/19 08:30 04/06/19 09:28 Flomax - PO 0.4 mg DAILY@0830 STEVE Administration Thiamine HCl 100 mg 04/04/19 10:00 04/06/19 09:29 Vitamin B1 - PO 100 mg DAILY STEVE Administration Tramadol HCl 50 mg 04/04/19 14:30 04/06/19 13:20 Ultram - PO 50 mg Q6H PRN Administration PAIN LEVEL 6-10 ASSESSMENT/PLAN: Gregory Jacobs is a 73 year old male past medical history of COPD (on 2L home O2) , Afib (not on AC), CAD (s/p stents), CVA (2019), HTN, hypothyroidism, HLD, L hip fx presents to ED s/p fall admitted for acute vs subacute sacral fracture. R hip fracture s/p mechanical fall - CT pelvis noting bilateral vertical fractures involving the sacral alae acute vs subacute, chronic transverse sacral fracture at S2 L5 vertebral compression fx, mild L4 superior endplate compression fx - ortho consulted, recs appreciated, WBAT with walker, pain control, PT - tramadol 50mg q6h - PT eval, poor mobility, will require rehab - avoid BZOs and sedatives/ hypnotics as pt experiences frequent falls. - UTox, ethanol level negative. only positive for opiates but Utox taken after patient was given opiate pain medications - CT head negative for acute path in regard to fall with head hit Afib - not currently on AC as per patient's gas charger/PCP - has long-standing hx of falls - EKG reviewed , NSR, no ST changes - currently in sinus rhythm - HAS BLED score of 4 points, high risk for major bleeding - CHADSVASC of 6, moderate- high risk - will need outpatient follow up with gas charger COPD - on home 2L O2 - c/w ipatropium albuterol BID - albuterol prn UTI - significant pyuria and + UA - Ucx growing lactose fermenting GNB - ceftriaxone 1g daily, will require outpatient abx - kidney/bladder u/s showing no signs of hydronephrosis or acute pathology. Showing large post-void residual. Will necessitate urology f/u HTN - continue Lasix and coreg Hypothyroidism - TSH 15 - increase synthroid to 37.5mcg - will require repeat TSH in 3-4 weeks to ensure adequate dosing CAD s/p stenting - continue Asa 81 - continue atorvastatin 40 Hx of Gout - last day of colchine - as per Yaw ESCOBAR, patient was placed on prednisone 20mg daily with no stop date - prednisone 15mg daily and will taper by 5mg every 3 days, taper to 10mg with first dose on BPH - continue tamsulosin Prophylaxis - heparin 5000 units subq tid F/E/N - no standing fluids, encourage PO intake - continue to monitor electrolytes and replete as necessary - sodium controlled diet Dispo - continue to monitor on med-surg - will require SNF Visit type - Emergency Visit Emergency Visit: Yes ED Registration Date: 04/03/19 Care time: The patient presented to the Emergency Department on the above date and was hospitalized for further evaluation of their emergent condition. - New Patient This patient is new to me today: No - Critical Care Critical Care patient: No
[2019-04-06] MEDS ORDERED: PT OWN MED DRAWER 7, Y5N ONE (20:50)
[2019-04-06] MEDS: ATORVASTATIN CA 40 MG TABLET (FP) PO SCH (21:41)
[2019-04-06] MEDS: MELATONIN 1 MG TABLET PO SCH (23:29)
[2019-04-07] MEDS: LEVOTHYROXINE NA 25 MCG TABLET (FP) PO SCH (06:14)
[2019-04-07] MEDS: HEPARIN NA (PORCINE) 5,000 UNITS/ML 1ML VIAL SQ SCH ×3 (06:18→22:29)
[2019-04-07] MEDS ORDERED: cefTRIAXone SODIUM 1 GM VIAL ONE (08:29)
[2019-04-07] MEDS ORDERED: DEXTROSE 5%-WATER - 50 ML IVPB ONE (08:29)
[2019-04-07] MEDS: ALBUTEROL SO4 2.5/IPRATROPIUM 0.5 INH SOL 3 ML VIAL.NEB. NEB SCH ×4 (08:37→21:59)
[2019-04-07] MEDS: TAMSULOSIN HCL 0.4 MG CAP PO SCH (09:05)
[2019-04-07] MEDS: PANTOPRAZOLE 40 MG TABLET (FP) PO SCH (09:05)
[2019-04-07] MEDS: CEFTRIAXONE 1 GM in DEXTROSE 5%-WATER - 50 ML IVPB SCH (09:05)
[2019-04-07] MEDS: predniSONE 10 MG TABLET (UD) PO SCH (09:06)
[2019-04-07] MEDS: ASPIRIN COATED 81 MG TABLET.EC PO SCH (09:06)
[2019-04-07] MEDS: traMADol HCL 50 MG TABLET PO PRN ×3 (09:06→22:41)
[2019-04-07] MEDS: THIAMINE HCL 100 MG TABLET (FP) PO SCH (09:06)
[2019-04-07] MEDS: FOLIC ACID 1 MG TABLET (FP) PO SCH (09:06)
[2019-04-07] MEDS ORDERED: PT OWN MED DRAWER 7, Y5N ONE ×2 (09:29→20:50)
[2019-04-07] MEDS: CARVEDILOL 3.125 MG TABLET (FP) PO SCH ×3 (09:40→22:42)
--- NOTE | 2019-04-07 12:11 | PN ---
Teaching Attending Note Name of Resident: Kaity De La Torre ATTENDING PHYSICIAN STATEMENT I saw and evaluated the patient. I reviewed the resident's note and discussed the case with the resident. I agree with the resident's findings and plan as documented. SUBJECTIVE: Feels well, reports improvement in sacral/coccyx pain. No bladder bowel dysfunction. OBJECTIVE: Afebrile, Hemodynamically Stable. Last Vital Signs Temp Pulse Resp BP Pulse Ox 97.9 F 65 18 116/66 95 04/07/19 06:35 04/07/19 06:35 04/07/19 06:35 04/07/19 06:35 04/06/19 21:00 Heart -S1, S2, RRR Lungs - clear to auscultation Abdomen - Soft, non-tender. Bowel Sounds normal. Extremities - no calf tenderness Neuro - AAO x 3. Tone/Power normal. MS - T/L spine non-tender on palpation. Current Medications Generic Name Dose Route Start Last Admin Trade Name Freq PRN Reason Stop Dose Admin Acetaminophen 650 mg 04/03/19 21:26 Tylenol - PO Q6H PRN PAIN LEVEL 4 - 6 Albuterol/Ipratropium 1 amp 04/04/19 08:00 04/07/19 08:37 Duoneb - NEB 1 amp RQID STEVE Administration Aspirin 81 mg 04/04/19 10:00 04/07/19 09:06 Ecotrin - PO 81 mg DAILY STEVE Administration Atorvastatin Calcium 40 mg 04/04/19 22:00 04/06/19 21:41 Lipitor - PO 40 mg HS STEVE Administration Carvedilol 3.125 mg 04/04/19 10:00 04/07/19 09:40 Coreg - PO 3.125 mg BID STEVE Administration Folic Acid 1 mg 04/04/19 10:00 04/07/19 09:06 Folic Acid - PO 1 mg DAILY STVEE Administration Heparin Sodium (Porcine) 5,000 unit 04/04/19 22:00 04/07/19 06:18 Heparin - SQ 5,000 unit TID STEVE Administration Ceftriaxone Sodium 1 gm/ 50 mls @ 200 mls/hr 04/05/19 11:30 04/07/19 09:05 Dextrose IVPB 200 mls/hr DAILY STEVE Administration Protocol Levothyroxine Sodium 37.5 mcg 04/04/19 11:40 04/07/19 06:14 Synthroid - PO 37.5 mcg DAILY@0700 STEVE Administration Melatonin 3 mg 04/04/19 22:00 04/06/19 23:29 Melatonin PO 3 mg HS STEVE Administration Pantoprazole Sodium 40 mg 04/04/19 10:00 04/07/19 09:05 Protonix - PO 40 mg DAILY STEVE Administration Prednisone 15 mg 04/06/19 10:00 04/07/19 09:06 Deltasone - PO 15 mg DAILY STEVE Administration Tamsulosin HCl 0.4 mg 04/04/19 08:30 04/07/19 09:05 Flomax - PO 0.4 mg DAILY@0830 STEVE Administration Thiamine HCl 100 mg 04/04/19 10:00 04/07/19 09:06 Vitamin B1 - PO 100 mg DAILY STEVE Administration Tramadol HCl 50 mg 04/04/19 14:30 04/07/19 09:06 Ultram - PO 50 mg Q6H PRN Administration PAIN LEVEL 6-10 Home Medications Medication Instructions Recorded Aspirin Coated [Ecotrin -] 81 mg PO DAILY 04/03/19 Atorvastatin Calcium 40 mg PO HS 04/03/19 Carvedilol [Coreg -] 3.125 mg PO BID 04/03/19 Folic Acid - 1 mg PO DAILY 04/03/19 Furosemide [Lasix] 40 mg PO DAILY 04/03/19 Ipratropium/Albuterol Sulfate 3 ml IH QID 04/03/19 [Iprat-Albut 0.5-3(2.5) mg/3 ml] Levothyroxine [Synthroid -] 25 mcg PO DAILY 04/03/19 Melatonin 3 mg PO HS 04/03/19 Pantoprazole Sodium [Protonix -] 40 mg PO DAILY 04/03/19 Tamsulosin HCl [Flomax -] 0.4 mg PO DAILY 04/03/19 Thiamine HCl [B-1] 100 mg PO DAILY 04/03/19 predniSONE [Deltasone -] 20 mg PO DAILY 04/03/19 ASSESSMENT AND PLAN: 73 year old male with history of Atrial Fibrillation (not on AC sec to frequent falls), CRF sec to COPD on 2L O2 at home, HTN, HLD, Hypothyroidism, presented with fall on buttocks after recent discharge from Rehab. Denies preceding CP/ palps/lightheadedness. No head injury/LOC. 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 CT Head - no acute intracranial findings. CT C-spine - No fractures. 1. Acute Sacral Fractures sec to Ambulatory Dysfunction/Frequent Falls L4/5 compression fractures on imaging - non-tender on examination, likely chronic. Tramadol prn Ortho consulted - conservative management - recommend PT/WBAT PT, recommends Rehab/SNF, awaiting insurance authorization 2. UTI - Urine Cx Klebsiella On Ceftriaxone (Day 3). To complete 7 day course. Afebrile, Hemodyncamically Stable. Renal US - no renal abnormality, large post-void residual. On Flomax for BPH. Urology follow up as out-patient. 3. Paroxysmal Atrial fibrillation - continue Coreg and ASA Not on AC due to frequent falls. 4. CRF sec to COPD on 2L O2 via NC Stable, no evidence of acute exacerbation. Admitted on prednisone for gout, taper started. DuoNebs PRN. 5. Hypothyroidism - TSH 15, Synthroid dose increased to 37.5mg 6. HLD - Continue Statin. 7. HTN - Continue Coreg. Previously on Lasix at home (?for diastolic CHF ? venous stasis) - Lasix now held due to borderline BP. No evidence of fluid overload. 8. Gout - on Colchicine for acute gout flare and Prednisone taper - Day 3 at 15mg today, to start 10mg daily for 3 days from 04/08. 9. BPH - Continue Flomax. DVT Px - Heparin SQ
--- NOTE | 2019-04-07 13:02 | PN ---
Physical Exam: SUBJECTIVE: Patient seen and examined this AM. No new complaints, no acute overnight events. OBJECTIVE: Vital Signs Period Temp Pulse Resp BP Sys/Babb Pulse Ox Last 24 Hr 97.6 F-98.4 F 65-90 18-20 105-123/53-75 95-96 GENERAL: A&Ox3, NAD HEAD: NCAT EYES: PERRL, EOMI ENT: MMM NECK: Supple LUNGS: Diminished breath sounds at the bases, no wheezes, no crackles HEART: Regular rate and rhythm, S1, S2 without murmur ABDOMEN: Soft, nontender, nondistended, + bowel sounds, no guarding EXTREMITIES: No edema NEUROLOGICAL: Cranial nerves II through XII grossly intact. LE ROM limited due to pain. SKIN: Warm, dry Laboratory Last Values WBC 8.4 K/mm3 (4.0-10.0) 04/06/19 06:57 RBC 3.63 M/mm3 (4.00-5.60) L 04/06/19 06:57 Hgb 10.4 GM/dL (11.7-16.9) L 04/06/19 06:57 Hct 30.9 % (35.4-49) L 04/06/19 06:57 MCV 85.2 fl (80-96) 04/06/19 06:57 MCH 28.6 pg (25.7-33.7) 04/06/19 06:57 MCHC 33.5 g/dl (32.0-35.9) 04/06/19 06:57 RDW 17.4 % (11.9-15.9) H 04/06/19 06:57 Plt Count 248 K/MM3 (134-434) 04/06/19 06:57 MPV 8.0 fl (7.5-11.1) 04/06/19 06:57 Absolute Neuts (auto) 9.2 K/mm3 (1.5-8.0) H 04/03/19 15:00 Neutrophils % 72.5 % (42.8-82.8) 04/03/19 15:00 Lymphocytes % 12.3 % (8-40) 04/03/19 15:00 Monocytes % 9.5 % (3.8-10.2) 04/03/19 15:00 Eosinophils % 5.0 % (0-4.5) H 04/03/19 15:00 Basophils % 0.7 % (0-2.0) 04/03/19 15:00 Nucleated RBC % 0 % (0-0) 04/03/19 15:00 PT with INR 12.80 SEC (9.7-13.0) 04/04/19 07:00 INR 1.08 (0.83-1.09) 04/04/19 07:00 PTT (Actin FS) 32.3 SECONDS (25.2-36.5) 04/04/19 07:00 Sodium 134 mmol/L (136-145) L 04/06/19 06:57 Potassium 3.9 mmol/L (3.5-5.1) 04/06/19 06:57 Chloride 99 mmol/L (98-107) 04/06/19 06:57 Carbon Dioxide 29 mmol/L (21-32) 04/06/19 06:57 Anion Gap 6 MMOL/L (8-16) L 04/06/19 06:57 BUN 16.9 mg/dL (7-18) 04/06/19 06:57 Creatinine 1.0 mg/dL (0.55-1.3) 04/06/19 06:57 Est GFR (CKD-EPI)AfAm 84.95 04/06/19 06:57 Est GFR (CKD-EPI)NonAf 73.30 04/06/19 06:57 Random Glucose 92 mg/dL (74-106) 04/06/19 06:57 Calcium 9.0 mg/dL (8.5-10.1) 04/06/19 06:57 Phosphorus 3.9 mg/dL (2.5-4.9) 04/04/19 07:00 Magnesium 2.2 mg/dL (1.8-2.4) 04/06/19 06:57 Total Bilirubin 1.2 mg/dL (0.2-1) H 04/04/19 07:00 AST 18 U/L (15-37) 04/04/19 07:00 ALT 25 U/L (13-61) 04/04/19 07:00 Alkaline Phosphatase 134 U/L (45-117) H 04/04/19 07:00 Troponin I < 0.02 ng/ml (0.00-0.05) 04/03/19 15:00 Total Protein 6.4 g/dl (6.4-8.2) 04/04/19 07:00 Albumin 3.0 g/dl (3.4-5.0) L 04/04/19 07:00 Vitamin B12 461 pg/ml (193-986) 04/04/19 07:00 Serum Folate 36 ng/mL (3.1-17.5) H 04/04/19 07:00 TSH 15.20 uIU/ml (0.358-3.74) H 04/04/19 07:00 Urine Color Yellow 04/04/19 00:30 Urine Appearance Turbid 04/04/19 00:30 Urine pH 5.5 (5.0-8.0) 04/04/19 00:30 Ur Specific [place] 1.013 (1.010-1.035) 04/04/19 00:30 Urine Protein Negative (NEGATIVE) 04/04/19 00:30 Urine Glucose (UA) Negative (NEGATIVE) 04/04/19 00:30 Urine Ketones Negative (NEGATIVE) 04/04/19 00:30 Urine Blood Trace (NEGATIVE) 04/04/19 00:30 Urine Nitrite Positive (NEGATIVE) H 04/04/19 00:30 Urine Bilirubin Negative (NEGATIVE) 04/04/19 00:30 Urine Urobilinogen 0.2 mg/dL (0.2-1.0) 04/04/19 00:30 Ur Leukocyte Esterase 3+ (NEGATIVE) H 04/04/19 00:30 Urine WBC (Auto) 670 /hpf (0-5) 04/04/19 00:30 Urine RBC (Auto) 7 /hpf (0-4) 04/04/19 00:30 Urine Casts (Auto) 3 /lpf (0-8) 04/04/19 00:30 U Epithel Cells (Auto) 0.6 /HPF (0-5/HPF) 04/04/19 00:30 Urine Bacteria (Auto) 304.2 /hpf (NEGATIVE) 04/04/19 00:30 Opiates Screen Positive ng/ml (ZJCHWD=041) A* 04/04/19 00:30 Methadone Screen Negative ng/ml (JLMXOF=286) 04/04/19 00:30 Barbiturate Screen Negative ng/ml (TKYLZS=981) 04/04/19 00:30 Phencyclidine Screen Negative ng/ml (CUTOFF=25) 04/04/19 00:30 Ur Amphetamines Screen Negative ng/ml (UOXREJ=491) 04/04/19 00:30 MDMA (Ecstasy) Screen Negative ng/ml (NEUTKN=338) 04/04/19 00:30 Benzodiazepines Screen Negative ng/ml (VZUIUG=276) 04/04/19 00:30 Cocaine Screen Negative ng/ml (KZXMZW=725) 04/04/19 00:30 U Marijuana (THC) Screen Negative ng/ml (CUTOFF=50) 04/04/19 00:30 Alcohol, Quantitative < 3 mg/dL (0.0-5.0) 04/03/19 15:00 Blood Type O POSITIVE 04/04/19 12:45 Antibody Screen Negative 04/04/19 07:00 Microbiology 04/03/19 22:00 Urine - Urine Clean Catch Urine Culture - Final Klebsiella Pneumoniae Active Medications Acetaminophen (Tylenol -) 650 mg PO Q6H PRN PRN Reason: PAIN LEVEL 4 - 6 Albuterol/Ipratropium (Duoneb -) 1 amp NEB RQID [facility] Last Admin: 04/07/19 11:15 Dose: 1 amp Aspirin (Ecotrin -) 81 mg PO DAILY [facility] Last Admin: 04/07/19 09:06 Dose: 81 mg Atorvastatin Calcium (Lipitor -) 40 mg PO HS [facility] Last Admin: 04/06/19 21:41 Dose: 40 mg Carvedilol (Coreg -) 3.125 mg PO BID [facility] Last Admin: 04/07/19 09:40 Dose: 3.125 mg Folic Acid (Folic Acid -) 1 mg PO DAILY [facility] Last Admin: 04/07/19 09:06 Dose: 1 mg Heparin Sodium (Porcine) (Heparin -) 5,000 unit SQ TID [facility] Last Admin: 04/07/19 06:18 Dose: 5,000 unit Ceftriaxone Sodium 1 gm/ (Dextrose) 50 mls @ 200 mls/hr IVPB DAILY [facility]; Protocol Last Admin: 04/07/19 09:05 Dose: 200 mls/hr Levothyroxine Sodium (Synthroid -) 37.5 mcg PO DAILY@0700 [facility] Last Admin: 04/07/19 06:14 Dose: 37.5 mcg Melatonin (Melatonin) 3 mg PO HS [facility] Last Admin: 04/06/19 23:29 Dose: 3 mg Pantoprazole Sodium (Protonix -) 40 mg PO DAILY [facility] Last Admin: 04/07/19 09:05 Dose: 40 mg Prednisone (Deltasone -) 15 mg PO DAILY [facility] Last Admin: 04/07/19 09:06 Dose: 15 mg Tamsulosin HCl (Flomax -) 0.4 mg PO DAILY@0830 [facility] Last Admin: 04/07/19 09:05 Dose: 0.4 mg Thiamine HCl (Vitamin B1 -) 100 mg PO DAILY [facility] Last Admin: 04/07/19 09:06 Dose: 100 mg Tramadol HCl (Ultram -) 50 mg PO Q6H PRN PRN Reason: PAIN LEVEL 6-10 Last Admin: 04/07/19 09:06 Dose: 50 mg ASSESSMENT/PLAN: 73 y/o M with PMHx COPD (on 2L home O2), Afib (not on AC), CAD (s/p stents), CVA (2018), HTN, hypothyroidism, HLD, L hip fx presents to ED s/p fall admitted for acute vs subacute sacral fracture. #Sacral fracture - s/p mechanical fall - ortho consulted, recs appreciated, WBAT with walker - Continue analgesia via tramadol PRN - Will require rehab as per PT - Fall precautions #UTI - Kidney bladder ultrasound noted - Ucx growing lactose fermenting GNB - Continue ceftriaxone (Started on 04/05) #Afib - not currently on AC - Continue Carvedilol, ASA #COPD - on home 2L O2 - Continue bronchodilators #HTN - continue Lasix and coreg #Hypothyroidism - TSH 15 - Continue synthroid to 37.5mcg - will require repeat TSH in 3-4 weeks to ensure adequate dosing #CAD s/p stenting - continue Asa, statin #Hx of Gout - Completed course of colchine -Continue prednisone taper--5mg every 3 days; Taper to 10mg with first dose on #BPH - continue tamsulosin #PPx -DVT: Heparin TID #FEN - no standing fluids - Replete lytes PRN - sodium controlled diet Dispo: Pending Auth for placement Visit type - Emergency Visit Emergency Visit: Yes ED Registration Date: 04/03/19 Care time: The patient presented to the Emergency Department on the above date and was hospitalized for further evaluation of their emergent condition. - New Patient This patient is new to me today: No - Critical Care Critical Care patient: No - Discharge Referral Referred to [facility] No ATTENDING PHYSICIAN STATEMENT I saw and evaluated the patient. I reviewed the resident's note and discussed the case with the resident. I agree with the resident's findings and plan as documented. SUBJECTIVE: OBJECTIVE: ASSESSMENT AND PLAN:
[2019-04-07] MEDS: ATORVASTATIN CA 40 MG TABLET (FP) PO SCH (22:29)
[2019-04-07] MEDS: MELATONIN 1 MG TABLET PO SCH (22:31)
[2019-04-08] MEDS: HEPARIN NA (PORCINE) 5,000 UNITS/ML 1ML VIAL SQ SCH ×3 (05:39→21:13)
[2019-04-08] MEDS ORDERED: PT OWN MED DRAWER 7, Y5N ONE ×2 (05:55→09:12)
[2019-04-08] MEDS: LEVOTHYROXINE NA 25 MCG TABLET (FP) PO SCH (06:31)
[2019-04-08] MEDS: ALBUTEROL SO4 2.5/IPRATROPIUM 0.5 INH SOL 3 ML VIAL.NEB. NEB SCH ×4 (08:20→20:16)
[2019-04-08] MEDS ORDERED: cefTRIAXone SODIUM 1 GM VIAL ONE (09:12)
[2019-04-08] MEDS ORDERED: DEXTROSE 5%-WATER - 50 ML IVPB ONE (09:12)
[2019-04-08] MEDS: FOLIC ACID 1 MG TABLET (FP) PO SCH (09:17)
[2019-04-08] MEDS: THIAMINE HCL 100 MG TABLET (FP) PO SCH (09:17)
[2019-04-08] MEDS: ASPIRIN COATED 81 MG TABLET.EC PO SCH (09:18)
[2019-04-08] MEDS: PANTOPRAZOLE 40 MG TABLET (FP) PO SCH (09:18)
[2019-04-08] MEDS: TAMSULOSIN HCL 0.4 MG CAP PO SCH (09:18)
[2019-04-08] MEDS: CEFTRIAXONE 1 GM in DEXTROSE 5%-WATER - 50 ML IVPB SCH (09:18)
[2019-04-08] MEDS: CARVEDILOL 3.125 MG TABLET (FP) PO SCH ×2 (09:20→21:14)
[2019-04-08] MEDS: predniSONE 10 MG TABLET (UD) PO SCH (09:21)
[2019-04-08] MEDS: traMADol HCL 50 MG TABLET PO PRN (09:29)
--- NOTE | 2019-04-08 17:09 | PN ---
Physical Exam: SUBJECTIVE: Patient seen and examined, left thigh pain, no new change. OBJECTIVE: Vital Signs Period Temp Pulse Resp BP Sys/Babb Pulse Ox Last 24 Hr 97.7 F-98.5 F 73-79 18-20 113-125/60-84 94-94 Intake & Output 04/05/19 04/06/19 04/07/19 04/08/19 23:59 23:59 23:59 23:59 Intake Total 350 400 100 750 Output Total 20 850 200 Balance 330 400 -750 550 General: sitting in bed in no acute distress neck: soft, supple chest: decreased efforts, no rales or wheezing Abdomen:soft, NT Extremities: no edema, scabs noted Musculoskeletal: no spinal tenderness, SLR LLE 30 degress, RLE upto 70 degrees Active Medications Generic Name Dose Route Start Last Admin Trade Name Freq PRN Reason Stop Dose Admin Acetaminophen 650 mg 04/03/19 21:26 Tylenol - PO Q6H PRN PAIN LEVEL 4 - 6 Albuterol/Ipratropium 1 amp 04/04/19 08:00 04/08/19 08:20 Duoneb - NEB 1 amp RQID STEVE Administration Aspirin 81 mg 04/04/19 10:00 04/08/19 09:18 Ecotrin - PO 81 mg DAILY STEVE Administration Atorvastatin Calcium 40 mg 04/04/19 22:00 04/07/19 22:29 Lipitor - PO 40 mg HS STEVE Administration Carvedilol 3.125 mg 04/04/19 10:00 04/08/19 09:20 Coreg - PO 3.125 mg BID STEVE Administration Folic Acid 1 mg 04/04/19 10:00 04/08/19 09:17 Folic Acid - PO 1 mg DAILY STEVE Administration Heparin Sodium (Porcine) 5,000 unit 04/04/19 22:00 04/08/19 15:31 Heparin - SQ 5,000 unit TID STEVE Administration Ceftriaxone Sodium 1 gm/ 50 mls @ 200 mls/hr 04/05/19 11:30 04/08/19 09:18 Dextrose IVPB 200 mls/hr DAILY STEVE Administration Protocol Levothyroxine Sodium 37.5 mcg 04/04/19 11:40 04/08/19 06:31 Synthroid - PO 37.5 mcg DAILY@0700 STEVE Administration Melatonin 3 mg 04/04/19 22:00 04/07/19 22:31 Melatonin PO 3 mg HS STEVE Administration Pantoprazole Sodium 40 mg 04/04/19 10:00 04/08/19 09:18 Protonix - PO 40 mg DAILY STEVE Administration Prednisone 10 mg 04/08/19 10:00 04/08/19 09:21 Deltasone - PO 10 mg DAILY STEVE Administration Tamsulosin HCl 0.4 mg 04/04/19 08:30 04/08/19 09:18 Flomax - PO 0.4 mg DAILY@0830 STEVE Administration Thiamine HCl 100 mg 04/04/19 10:00 04/08/19 09:17 Vitamin B1 - PO 100 mg DAILY STEVE Administration ASSESSMENT/PLAN: 73 year old male with history of Atrial Fibrillation (not on AC sec to frequent falls), CRF sec to COPD on 2L O2 at home, HTN, HLD, Hypothyroidism, presented with fall on buttocks after recent discharge from Rehab. Denies preceding CP/ palps/lightheadedness. No head injury/LOC. 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 CT Head - no acute intracranial findings. CT C-spine - No fractures. 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 Tylenol/ Tramadol prn. Ceftriaxone day 4. Change to Cefuroxime BID for additional 3 days. Renal US noted, flomax, outpatient urology follow up. Renal function stable. Continue ASA/coreg/statin. Lasix on hold, monitor volume status. TSH 15, Synthroid incerased to 37.5 mg, repeat Thyroid Function tests in 4-6 weeks. Check free T4. Continue colchicine. Prednisone taper 10 mg for 3 more days (last dose 04/10) DVTPPX heparin Dispo pending SNF placement. Discussed with patient. Visit type - Emergency Visit Emergency Visit: Yes ED Registration Date: 04/03/19 Care time: The patient presented to the Emergency Department on the above date and was hospitalized for further evaluation of their emergent condition. - New Patient This patient is new to me today: Yes Date on this admission: 04/08/19 - Critical Care Critical Care patient: No - Discharge Referral Referred to [facility] Med [facility].C.: No
[2019-04-08] MEDS: ACETAMINOPHEN 325 MG TABLET (FP) PO PRN (21:12)
[2019-04-08] MEDS: MELATONIN 1 MG TABLET PO SCH (21:13)
[2019-04-08] MEDS: ATORVASTATIN CA 40 MG TABLET (FP) PO SCH (21:13)
[2019-04-09] MEDS: LEVOTHYROXINE NA 25 MCG TABLET (FP) PO SCH (07:03)
[2019-04-09] MEDS: HEPARIN NA (PORCINE) 5,000 UNITS/ML 1ML VIAL SQ SCH ×3 (07:04→21:26)
[2019-04-09] MEDS: ACETAMINOPHEN 325 MG TABLET (FP) PO PRN (07:04)
[2019-04-09] MEDS: TAMSULOSIN HCL 0.4 MG CAP PO SCH (09:35)
[2019-04-09] MEDS: ASPIRIN COATED 81 MG TABLET.EC PO SCH (09:36)
[2019-04-09] MEDS: THIAMINE HCL 100 MG TABLET (FP) PO SCH (09:36)
[2019-04-09] MEDS: CEFUROXIME AXETIL 500 MG TABLET PO SCH ×2 (09:36→21:26)
[2019-04-09] MEDS: CARVEDILOL 3.125 MG TABLET (FP) PO SCH ×2 (09:36→21:26)
[2019-04-09] MEDS: PANTOPRAZOLE 40 MG TABLET (FP) PO SCH (09:36)
[2019-04-09] MEDS: FOLIC ACID 1 MG TABLET (FP) PO SCH (09:36)
[2019-04-09] MEDS: predniSONE 10 MG TABLET (UD) PO SCH (09:36)
[2019-04-09] MEDS ORDERED: DOCUSATE SODIUM 100 MG CAPSULE (FP) PO PRN (10:34)
[2019-04-09] MEDS ORDERED: INSULIN (NOVOLOG) ASPART 100 UNITS/ML 10ML VIAL ONE (11:32)
--- NOTE | 2019-04-09 11:36 | PN ---
Teaching Attending Note Name of Resident: Rony Tillman ATTENDING PHYSICIAN STATEMENT I saw and evaluated the patient. I reviewed the resident's note and discussed the case with the resident. I agree with the resident's findings and plan as documented with exceptions below. SUBJECTIVE: Patient seen and examined. No new complaints. OBJECTIVE: Vital Signs Period Temp Pulse Resp BP Sys/Babb Pulse Ox Last 24 Hr 97.7 F-98.7 F 65-80 18-20 92-117/50-84 92-94 Intake & Output 04/06/19 04/07/19 04/08/19 04/09/19 23:59 23:59 23:59 23:59 Intake Total 400 100 980 0 Output Total 850 500 500 Balance 400 -750 480 -500 Weight 192 lb 6.4 oz General: sitting in bed, no acute distress chest: no rales or wheezing Abdomen:soft, NT Extremities: no edema, scabs Musculoskeletal: no spinal tenderness, SLR LLE 20 degrees, RLE 60 degrees Home Medications Medication Instructions Recorded Aspirin Coated [Ecotrin -] 81 mg PO DAILY 04/03/19 Atorvastatin Calcium 40 mg PO HS 04/03/19 Carvedilol [Coreg -] 3.125 mg PO BID 04/03/19 Folic Acid - 1 mg PO DAILY 04/03/19 Ipratropium/Albuterol Sulfate 3 ml IH QID 04/03/19 [Iprat-Albut 0.5-3(2.5) mg/3 ml] Melatonin 3 mg PO HS 04/03/19 Pantoprazole Sodium [Protonix -] 40 mg PO DAILY 04/03/19 Thiamine HCl [B-1] 100 mg PO DAILY 04/03/19 Cefuroxime Axetil [Ceftin -] 500 mg PO BID #4 tablet 04/09/19 Docusate Sodium [Colace -] 100 mg PO BID PRN #30 capsule 04/09/19 Levothyroxine [Synthroid -] 37.5 mcg PO DAILY@0700 #45 tablet 04/09/19 Tamsulosin HCl [Flomax -] 0.4 mg PO HS #30 cap.er.24h 04/09/19 predniSONE [Deltasone -] 10 mg PO DAILY #3 tablet 04/09/19 Active Medications Acetaminophen (Tylenol -) 650 mg PO Q6H PRN PRN Reason: PAIN LEVEL 4 - 6 Last Admin: 04/09/19 07:04 Dose: 650 mg Aspirin (Ecotrin -) 81 mg PO DAILY [facility] Last Admin: 04/09/19 09:36 Dose: 81 mg Atorvastatin Calcium (Lipitor -) 40 mg PO HS [facility] Last Admin: 04/08/19 21:13 Dose: 40 mg Carvedilol (Coreg -) 3.125 mg PO BID [facility] Last Admin: 04/09/19 09:36 Dose: Not Given Cefuroxime Axetil (Ceftin -) 500 mg PO BID [facility] Stop: 04/11/19 22:01 Last Admin: 04/09/19 09:36 Dose: 500 mg Docusate Sodium (Colace -) 100 mg PO BID PRN PRN Reason: CONSTIPATION Folic Acid (Folic Acid -) 1 mg PO DAILY [facility] Last Admin: 04/09/19 09:36 Dose: 1 mg Heparin Sodium (Porcine) (Heparin -) 5,000 unit SQ TID [facility] Last Admin: 04/09/19 07:04 Dose: 5,000 unit Levothyroxine Sodium (Synthroid -) 37.5 mcg PO DAILY@0700 [facility] Last Admin: 04/09/19 07:03 Dose: 37.5 mcg Melatonin (Melatonin) 3 mg PO HS [facility] Last Admin: 04/08/19 21:13 Dose: 3 mg Pantoprazole Sodium (Protonix -) 40 mg PO DAILY [facility] Last Admin: 04/09/19 09:36 Dose: 40 mg Prednisone (Deltasone -) 10 mg PO DAILY [facility] Last Admin: 04/09/19 09:36 Dose: 10 mg Tamsulosin HCl (Flomax -) 0.4 mg PO DAILY@0830 [facility] Last Admin: 04/09/19 09:35 Dose: 0.4 mg Thiamine HCl (Vitamin B1 -) 100 mg PO DAILY [facility] Last Admin: 04/09/19 09:36 Dose: 100 mg Tramadol HCl (Ultram -) 50 mg PO Q6H PRN PRN Reason: PAIN LEVEL 6-10 Laboratory Results - last 24 hr 04/09/19 07:28 Free T4 0.73 L Microbiology 04/03/19 22:00 Urine - Urine Clean Catch Urine Culture - Final Klebsiella Pneumoniae CT Pelvis - L4 compression#/L5 compression #s, Sacral fractures, 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 CT Head - no acute intracranial findings. CT C-spine - No fractures. ASSESSMENT AND PLAN: 73 year old male with history of Atrial Fibrillation (not on AC sec to frequent falls), CRF sec to COPD on 2L O2 at home, HTN, HLD, Hypothyroidism, presented with fall on buttocks after recent discharge from Rehab. Denies preceding CP/ palps/lightheadedness. No head injury/LOC. 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 Tylenol/ Tramadol prn. Bowel regimen. s/p 4 days of ceftriaxone. Cefuroxime BID day 1/3 for total 1 week course Renal US noted, flomax, outpatient urology follow up. Renal function stable. Continue ASA/coreg/statin. Lasix on hold, monitor volume status. TSH 15, free T4 noted, Synthroid incerased to 37.5 mg, repeat Thyroid Function tests in 4-6 weeks. Continue colchicine. Prednisone taper 10 mg for 3 more days (last dose 04/10) DVTPPX heparin Dispo SNF vs home with services in 24 hours. Discussed with patient and social work. .
[2019-04-09] MEDS: traMADol HCL 50 MG TABLET PO PRN ×2 (11:49→20:00)
--- NOTE | 2019-04-09 13:27 | DS ---
Physical Exam: SUBJECTIVE: Patient seen and examined at the bedside. Noted that he was feeling better but still did have some pain when moving around. Otherwise did not have any acute complaints of cp, sob, abd pain, n/v/c/d, fever, chills, headaches, dizziness, lightheadedness, numbness, tingling. OBJECTIVE: Vital Signs Period Temp Pulse Resp BP Sys/Babb Pulse Ox Last 24 Hr 97.7 F-98.7 F 65-80 18-20 92-117/50-84 92-94 PHYSICAL EXAM GENERAL: The patient is awake, alert, and fully oriented, in no acute distress. HEAD: Normal with no signs of trauma. EYES: PERRL, extraocular movements intact, sclera anicteric, conjunctiva clear. ENT: Oropharynx clear without exudates, moist mucous membranes. NECK: Trachea midline, full range of motion, supple. LUNGS: Breath sounds equal, with mild expiratory wheezes, no noted crackles, no accessory muscle use. HEART: Regular rate and rhythm, S1, S2 without murmur, rub. ABDOMEN: Soft, nontender, nondistended, normoactive bowel sounds, no guarding, no rebound, no masses. EXTREMITIES: 2+ pulses, warm, well-perfused, no edema. Neurovascullarly intact in both LE. NEUROLOGICAL: Cranial nerves II through XII grossly intact. LE motion and strength limited secondary to pain at the hip. UE 5/5 muscle strength bilaterally PSYCH: Normal mood, normal affect. SKIN: Warm, dry, normal turgor, no rashes or lesions noted. LABS Laboratory Results - last 24 hr 04/09/19 07:28 Free T4 0.73 L HOSPITAL COURSE: Gregory Jacobs is a 73 year old male past medical history of COPD (on 2L home O2) , Afib (not on AC), CAD (s/p stents), CVA (2019), HTN, hypothyroidism, HLD, L hip fx presents to ED s/p fall admitted for acute vs subacute sacral fracture. CT Pelvis noted bilateral vertical fractures involving the sacral alae acute vs subacute, chronic transverse sacral fracture at S2 L5 vertebral compression fx, mild L4 superior endplate compression fx. Orthopedics were consulted and recommended weight bearing as tolerated, pain control, and continued physical therapy. Head CT was negative for acute pathology. Patient was found with a UTI and started on ceftriaxone and will complete a course of outpatient antibiotics. Kidney/bladder U/S did not show any acute pathology but did show a large post-void residual which the patient was advised to follow up outpatient with urology. Tamsulosin was switched to be taken at night. Patient was on colchicine and prednisone for gout. Colchicine was stopped as per stopping orders when reconciled through previous nursing facility. Prednisone was started to be tapered and will be tapered off once the patient leaves this facility. Patient was found to have elevated TSH at this facility and had Synthroid dose increased to 37.5mcg and is to follow up with repeat TSH in the 4-6 weeks. Patient has a history of CAD and afib and not currently on AC in the setting of multiple falls. He was advised to follow up with cardiology for continued management of his cardiac comorbidities. Patient is to follow up with his PCP, orthopedic surgeon, clay preparation supervisor, and urologist. Patient was advised of the plan, was in agreement, and reiterated the plan. Patient was discharged in stable medical condition. Date of Admission:04/03/19 Date of Discharge: 04/09/19 Minutes to complete discharge: 35 Discharge Summary Problems reviewed: Yes Reason For Visit: INTRACTABLE PAIN, FRACTURE OF SACRUM Current Active Problems Sacral fracture (Chronic) Condition: Stable - Instructions Diet, Activity, Other Instructions: You were admitted after you sustained a fall and were found to have several fractures in your sacrum (tailbone). You were seen by orthopedic surgery who recommended that you bear weight on the your legs as you can tolerate, have pain medications, and have physical therapy to build your strength. You had a CT scan of your head which did not show any changes after you hit your head after the falls. You were found to have a urinary tract infection for which you were started on antibiotics and will need to complete a course of antibiotics when you leave the hospital. You were also found to have urine left in your bladder upon voiding. You are advised to follow up with a urologist for these findings. You have an abnormal heart rhythm and are not currently on medications to help manage risk factors. You are advised to see a clay preparation supervisor to assess your need for these medications. MEDICATIONS STOP taking colchicine. STOP taking furosemide. Follow up with a clay preparation supervisor to assess the function of your heart. START to take cefuroxime 500mg twice a day for 2 more days. Your last dose will be on April 11. START to take tramadol 50mg every 8 hours as needed for pain. START to taper your prednisone medication as follows: Prednisone 10mg daily with the last dose on April 10. Prednisone 5mg daily with the last dose on April 13. Then STOP taking prednisone. START taking levothyroxine 37.5mg daily. You will need to check your thyroid function levels in 4-6 weeks. START to take Colace 100mg twice a daily only as needed if you have constipation. Take flomax 0.4mg tablet at nighttime. REFERRALS Please see your primary care doctor within 1 week. If you do not have one, you may visit the resident's clinic. Information is provided for the clinic to make an appointment. Please see the orthopedic surgeon, Dr. Vasquez Bar, within 2 week. Please see the clay preparation supervisor, Dr. Mark Matthews, within 1 week. Please see the urologist, Dr. Ricky Melissa, within 1 week. SPECIAL INSTRUCTIONS You will need to obtain Thyroid function tests in 4-6 weeks. You may obtain these through your primary care doctor. You are provided with short course of tramadol for pain. Do not drive, operate heavy machinery or take important decisions alone while on this medication. Please ensure to maintain high fiber diet and laxatives as needed to avoid constipation. You lasix has been currently held. Advise to check your weight daily and notify your doctor if weight gain > 3lbs in 2 days, leg swelling noted. Please work with physical therapy in order to build your strength and improve your mobility. If you have any symptoms of chest pain, shortness of breath, continued inability to move, additional falls, dizziness, lightheadedness, head strikes upon falls, please call 911 or go to your nearest emergency room. Referrals: [facility] [Provider Group] - 1 Week Vasquez Bar MD [Staff Physician] - 2 Weeks Mark Matthews MD [Staff Physician] - 1 Week Ricky Melissa MD [Staff Physician] - 1 Week Disposition: CARE HOME FACILITY - Home Medications Comprehensive Discharge Medication List: Ambulatory Orders Aspirin Coated [Ecotrin -] 81 mg PO DAILY 04/03/19 Atorvastatin Calcium 40 mg PO HS 04/03/19 Carvedilol [Coreg -] 3.125 mg PO BID 04/03/19 Folic Acid - 1 mg PO DAILY 04/03/19 Ipratropium/Albuterol Sulfate [Iprat-Albut 0.5-3(2.5) mg/3 ml] 3 ml IH QID 04/03 Melatonin 3 mg PO HS 04/03/19 Pantoprazole Sodium [Protonix -] 40 mg PO DAILY 04/03/19 Thiamine HCl [B-1] 100 mg PO DAILY 04/03/19 Cefuroxime Axetil [Ceftin -] 500 mg PO BID #4 tablet 04/09/19 Docusate Sodium [Colace -] 100 mg PO BID PRN #30 capsule 04/09/19 Levothyroxine [Synthroid -] 37.5 mcg PO DAILY@0700 #45 tablet 04/09/19 Tamsulosin HCl [Flomax -] 0.4 mg PO HS #30 cap.er.24h 04/09/19 predniSONE [Deltasone -] 10 mg PO DAILY #3 tablet 04/09/19 Problem List - Problems (1) Sacral fracture Code(s): S32.10XA - UNSP FRACTURE OF SACRUM, INIT ENCNTR FOR CLOSED FRACTURE Qualifiers: Encounter type: initial encounter Zone of sacrum fracture: unspecified portion of sacrum Fracture type: closed Qualified Code(s): S32.10XA - Unspecified fracture of sacrum, initial encounter for closed fracture (2) Intractable pain Code(s): R52 - PAIN, UNSPECIFIED This patient is new to me today: No Emergency Visit: Yes ED Registration Date: 04/03/19 Care time: The patient presented to the Emergency Department on the above date and was hospitalized for further evaluation of their emergent condition. Critical Care patient: No - Discharge Referral Referred to [facility] Med [facility] No
[2019-04-09] MEDS ORDERED: PT OWN MED DRAWER 7, Y5N ONE (20:34)
[2019-04-09] MEDS: ATORVASTATIN CA 40 MG TABLET (FP) PO SCH (21:26)
[2019-04-09] MEDS: MELATONIN 1 MG TABLET PO SCH (23:41)
[2019-04-10] MEDS: LEVOTHYROXINE NA 25 MCG TABLET (FP) PO SCH (06:19)
[2019-04-10] MEDS: HEPARIN NA (PORCINE) 5,000 UNITS/ML 1ML VIAL SQ SCH (06:19)
[2019-04-10] MEDS: predniSONE 10 MG TABLET (UD) PO SCH (11:36)
[2019-04-10] MEDS: ASPIRIN COATED 81 MG TABLET.EC PO SCH (11:36)
[2019-04-10] MEDS: FOLIC ACID 1 MG TABLET (FP) PO SCH (11:36)
[2019-04-10] MEDS: CARVEDILOL 3.125 MG TABLET (FP) PO SCH (11:36)
[2019-04-10] MEDS: THIAMINE HCL 100 MG TABLET (FP) PO SCH (11:37)
[2019-04-10] MEDS: PANTOPRAZOLE 40 MG TABLET (FP) PO SCH (11:37)
[2019-04-10] MEDS: TAMSULOSIN HCL 0.4 MG CAP PO SCH (11:37)
[2019-04-10] MEDS: CEFUROXIME AXETIL 500 MG TABLET PO SCH (11:37)
[2019-04-10 14:39] VITALS: BP 100/55; PULSE 71; TEMP 97.5
--- NOTE | 2019-04-10 15:40 | PN ---
Physical Exam: SUBJECTIVE: Patient seen and examined at the bedside. Patient stated that he still has pain in his hip when he moves it. Otherwise denies any acute complaints of cp, sob, abd pain, n/v/c/d, dizziness, lightheadedness, fever, chills, numbness, tingling. OBJECTIVE: Vital Signs Period Temp Pulse Resp BP Sys/Babb Pulse Ox Last 24 Hr 97.5 F-98.2 F 66-72 18-20 97-149/42-55 93-93 GENERAL: The patient is awake, alert, and fully oriented, in no acute distress. HEAD: Normal with no signs of trauma. EYES: PERRL, extraocular movements intact, sclera anicteric, conjunctiva clear. ENT: Oropharynx clear without exudates, moist mucous membranes. NECK: Trachea midline, full range of motion, supple. LUNGS: Breath sounds equal, with mild expiratory wheezes, no noted crackles, no accessory muscle use. HEART: Regular rate and rhythm, S1, S2 without murmur, rub. ABDOMEN: Soft, nontender, nondistended, normoactive bowel sounds, no guarding, no rebound, no masses. EXTREMITIES: 2+ pulses, warm, well-perfused, no edema. Neurovascullarly intact in both LE. NEUROLOGICAL: Cranial nerves II through XII grossly intact. LE motion and strength limited secondary to pain at the hip. UE 5/5 muscle strength bilaterally PSYCH: Normal mood, normal affect. SKIN: Warm, dry, normal turgor, no rashes or lesions noted. Active Medications Generic Name Dose Route Start Last Admin Trade Name Freq PRN Reason Stop Dose Admin Acetaminophen 650 mg 04/03/19 21:26 04/09/19 07:04 Tylenol - PO 650 mg Q6H PRN Administration PAIN LEVEL 4 - 6 Aspirin 81 mg 04/04/19 10:00 04/10/19 11:36 Ecotrin - PO 81 mg DAILY STEVE Administration Atorvastatin Calcium 40 mg 04/04/19 22:00 04/09/19 21:26 Lipitor - PO 40 mg HS STEVE Administration Carvedilol 3.125 mg 04/04/19 10:00 04/10/19 11:36 Coreg - PO 3.125 mg BID STEVE Administration Cefuroxime Axetil 500 mg 04/09/19 10:00 04/10/19 11:37 Ceftin - PO 04/11/19 22:01 500 mg BID STEVE Administration Docusate Sodium 100 mg 04/09/19 10:34 Colace - PO BID PRN CONSTIPATION Folic Acid 1 mg 04/04/19 10:00 04/10/19 11:36 Folic Acid - PO 1 mg DAILY STEVE Administration Heparin Sodium (Porcine) 5,000 unit 04/04/19 22:00 04/10/19 06:19 Heparin - SQ 5,000 unit TID STEVE Administration Levothyroxine Sodium 37.5 mcg 04/04/19 11:40 04/10/19 06:19 Synthroid - PO 37.5 mcg DAILY@0700 STEVE Administration Melatonin 3 mg 04/04/19 22:00 04/09/19 23:41 Melatonin PO 3 mg HS STEVE Administration Pantoprazole Sodium 40 mg 04/04/19 10:00 04/10/19 11:37 Protonix - PO 40 mg DAILY STEVE Administration Prednisone 10 mg 04/08/19 10:00 04/10/19 11:36 Deltasone - PO 10 mg DAILY STEVE Administration Tamsulosin HCl 0.4 mg 04/04/19 08:30 04/10/19 11:37 Flomax - PO 0.4 mg DAILY@0830 STEVE Administration Thiamine HCl 100 mg 04/04/19 10:00 04/10/19 11:37 Vitamin B1 - PO 100 mg DAILY STEVE Administration Tramadol HCl 50 mg 04/09/19 11:20 04/09/19 20:00 Ultram - PO 50 mg Q6H PRN Administration PAIN LEVEL 6-10 ASSESSMENT/PLAN: Gregory Jacobs is a 73 year old male past medical history of COPD (on 2L home O2) , Afib (not on AC), CAD (s/p stents), CVA (2019), HTN, hypothyroidism, HLD, L hip fx presents to ED s/p fall admitted for acute vs subacute sacral fracture. Patient discharged was delayed until today. Patient was seen and remains in stable condition and still remains for discharge to [facility]. Problem List - Problems (1) Sacral fracture Code(s): S32.10XA - UNSP FRACTURE OF SACRUM, INIT ENCNTR FOR CLOSED FRACTURE Qualifiers: Encounter type: initial encounter Zone of sacrum fracture: unspecified portion of sacrum Fracture type: closed Qualified Code(s): S32.10XA - Unspecified fracture of sacrum, initial encounter for closed fracture (2) Intractable pain Code(s): R52 - PAIN, UNSPECIFIED Visit type - Emergency Visit Emergency Visit: Yes ED Registration Date: 04/03/19 Care time: The patient presented to the Emergency Department on the above date and was hospitalized for further evaluation of their emergent condition. - New Patient This patient is new to me today: No - Critical Care Critical Care patient: No
== END 2019-04-10 15:30 | DRG 552 ==
LOC: JER 13:46 → JERBED 19:38 → J7W 23:43
PROVIDERS: ADMIT Internal Medicine; ATTEND Hospitalist
DX: S32.10XA Unspecified fracture of sacrum, initial encounter for closed fracture (principal); N39.0 Urinary tract infection, site not specified; J96.11 Chronic respiratory failure with hypoxia; I10 Essential (primary) hypertension; E03.9 Hypothyroidism, unspecified; I25.10 Atherosclerotic heart disease of native coronary artery without angina pectoris; Z98.61 Coronary angioplasty status; E78.5 Hyperlipidemia, unspecified; W19.XXXA Unspecified fall, initial encounter; Y93.9 Activity, unspecified; Y92.89 Other specified places as the place of occurrence of the external cause; Y99.9 Unspecified external cause status; I48.0 Paroxysmal atrial fibrillation; B96.1 Klebsiella pneumoniae [K. pneumoniae] as the cause of diseases classified elsewhere; N40.0 Benign prostatic hyperplasia without lower urinary tract symptoms; M10.9 Gout, unspecified; J44.9 Chronic obstructive pulmonary disease, unspecified
CPT/HCPCS: 36415; 70450-TC; 72125-TC; 72192-TC; 73523-TC-FY; 73552-TC-LT-FY; 76775-TC; 76856-TC; 80048; 80053; 80307; 81003; 82607; 82746; 83735; 84100; 84439; 84443; 84484; 85025; 85027; 85610; 85730; 86850; 86900; 86901; 87086; 87186; 93005; 93010; 94010; 94640; 97116-GP; 97161-GP; 99285-25; J0131; J1644

== ENCOUNTER 2019-05-25 14:07 | Inpatient (IN) | payer OTHER ==
--- NOTE | 2019-05-25 14:24 | PDOC ---
History of Present Illness - General Stated Complaint: EDEMA Time Seen by Provider: 05/25/19 14:22 History Source: Patient Exam Limitations: No Limitations - History of Present Illness Initial Comments: 05/25/19 14:23 Gregory Jacobs is a 73M with PMH Afib, CVA, COPD on home O2, HTN, HLD, bilateral hip fractures sent from [facility] for bilateral LE edema. Patient reports a few months ago fell and broke his hip, then after being discharged fell in parking lot and broke other hip, both fractures non-operative , discharged to [facility] for rehab. Now sent from rehab for worsening BLE edema for eval. Patient reports legs are chronically swollen, on Lasix without improvement. Says they burn from his knees down to his feet, denies numbness/tingling, able to walk around without significant SOB as part of rehab. At baseline on 2-3L O2 at home for COPD, denies any worsening SOB at this time. Denies fever, chills, nausea, vomiting, abdominal pain, diarrhea, vision changes, dizziness, chest pain. Has a Mid Line to L arm, patient does not know what this is for. Has multiple ulcers to legs from swelling, dressings changed by nurse. Past History - Past Medical History Allergies/Adverse Reactions: Allergies Allergy/AdvReac Type Severity Reaction Status Date / Time lisinopril Allergy Verified 05/25/19 19:15 "all prils" Allergy Uncoded 05/25/19 19:15 Home Medications: Ambulatory Orders Aspirin Coated [Ecotrin -] 81 mg PO DAILY 04/03/19 Atorvastatin Calcium 40 mg PO HS 04/03/19 Carvedilol [Coreg -] 3.125 mg PO BID 04/03/19 Folic Acid - 1 mg PO DAILY 04/03/19 Ipratropium/Albuterol Sulfate [Iprat-Albut 0.5-3(2.5) mg/3 ml] 3 ml IH QID 04/03 Melatonin 3 mg PO HS 04/03/19 Thiamine HCl [B-1] 100 mg PO DAILY 04/03/19 Tamsulosin HCl [Flomax -] 0.4 mg PO HS #30 cap.er.24h 04/09/19 traMADol HCL [Ultram -] 50 mg PO Q6H PRN #90 tablet MDD 200 04/10/19 Furosemide 40 mg PO DAILY 05/25/19 Levothyroxine [Synthroid -] 100 mcg PO DAILY@0700 05/25/19 Metolazone 2.5 mg PO DAILY 05/25/19 Mirtazapine 7.5 mg PO HS 05/25/19 Potassium Chloride 10 meq PO DAILY 05/25/19 Cardiac Disorders: Yes (a fib) CVA: Yes COPD: Yes HTN: Yes Hypercholesterolemia: Yes Thyroid Disease: Yes (hypo) - Surgical History Cardiac Surgery: Yes (stent placement) - Psycho Social/Smoking Cessation Hx Smoking History: Current every day smoker Hx Alcohol Use: Yes Review of Systems - Review of Systems Able to Perform ROS?: Yes Constitutional: No: Chills, Fever, Weakness HEENTM: No: Blurred Vision, Double Vision, Hearing Loss, Throat Pain, Difficulty Swallowing, Mouth Swelling Respiratory: Yes: Shortness of Breath, SOB with Exertion, SOB at Rest, Wheezing. No: Cough, Productive cough Cardiac (ROS): Yes: Edema. No: Chest Pain, Irregular Heart Rate, Lightheadedness, Palpitations, Syncope ABD/GI: No: Constipated, Diarrhea, Nausea, Poor Appetite, Poor Fluid Intake, Vomiting : No: Burning, Dysuria, Discharge, Frequency, Flank Pain, Hematuria, Incontinence, Pain, Urgency Musculoskeletal: No: Back Pain, Muscle Pain, Muscle Weakness Integumentary: Yes: Lesions (leg ulcers) Neurological: No: Headache, Numbness, Paresthesia, Tingling, Unsteady Gait, Dizziness Endocrine: No: Symptoms Reported Hematologic/Lymphatic: No: Symptoms Reported All Other Systems: Reviewed and Negative *Physical Exam - Physical Exam General Appearance: Yes: Nourished, Appropriately Dressed. No: Apparent Distress HEENT: positive: EOMI, ALANA, Normal ENT Inspection, Normal Voice, Symmetrical, Pharynx Normal, Hearing Grossly Normal. negative: Scleral Icterus (R), Scleral Icterus (L), Pharyngeal Erythema, Tonsillar Exudate, Tonsillar Erythema Neck: positive: Trachea midline, Normal Thyroid, Supple. negative: Tender, Rigid, Decreased range of motion, Lymphadenopathy (R), Lymphadenopathy (L), Tender lateral, Tender midline Respiratory/Chest: positive: Wheezing (bilateral lower chaves). negative: Chest Tender, Respiratory Distress, Accessory Muscle Use Cardiovascular: positive: Irregularly Irregular. negative: Murmur Vascular Pulses: Dorsalis-Pedis (R): 1+, Doralis-Pedis (L): 1+ Gastrointestinal/Abdominal: positive: Normal Bowel Sounds, Flat, Soft. negative : Tender, Organomegaly, Guarding, Rebound Musculoskeletal: positive: Normal Inspection. negative: CVA Tenderness, Decreased Range of Motion Extremity: positive: Normal Capillary Refill, Normal Inspection, Normal Range of Motion, Pelvis Stable, Pedal Edema, Swelling, Erythema (BLE). negative: Tender, Calf Tenderness Integumentary: positive: Dry, Warm, Other (multiple ulcers to BLE). negative: Diaphoresis Neurologic: positive: Fully Oriented, Alert, Normal Mood/Affect, Normal Response , Motor Strength 5/5. negative: Numbness, Sensory Deficit ED Treatment Course - LABORATORY CBC & Chemistry Diagram: 05/26/19 06:05 05/26/19 06:05 Medical Decision Making - Medical Decision Making 05/25/19 19:00 Patient has known history of COPD on home O2 with bilateral hip fractures presents with BLE edema with multiple ulcerations. VS on presentation show tachycardia and tachypnea despite patient report of not feeling more SOB than baseline COPD. Neurovascular intact to feet, denies fever/chills, productive cough. Concern for DVT/PE given BLE swelling and tachycardia. BLE appear warm and swollen, likely cellulitis requiring treatment. Sepsis order set ordered for tachycardia. Adding on BNP. Rectal temp 97.2F. 1 amp Duonebs for wheezing. Labs notable for: - WBC 11 - INR 1.22 - VBG: pCO2 78.6, pH 7.32, HCO3 36 compensated well - Cr 1.5 up from 1.1 - UA 2+ LE but no other evidence of infection CXR possible infiltrate R-sided, large heart. Getting CTA at this time, followed by US. Signed out to Dr. Nolasco, plan to f/u CTA and US results. If positive for PE, start heparin and admit for further eval. If negative, consider BLE edema and cellulitis, admit for diuresis and start clindamycin for MRSA/strep/staph coverage. Discharge - Discharge Information Problems reviewed: Yes Clinical Impression/Diagnosis: Bilateral lower leg cellulitis Condition: Guarded - Follow up/Referral - Patient Discharge Instructions - Post Discharge Activity
[2019-05-25 15:02] VITALS: BMI 27.9
[2019-05-25] MEDS ORDERED: SODIUM CHLORIDE 2,803 ML IV ONE (15:37)
[2019-05-25] MEDS ORDERED: ALBUTEROL SO4 2.5/IPRATROPIUM 0.5 INH SOL 3 ML VIAL.NEB. NEB ONE ×2 (15:43→16:30)
--- NOTE | 2019-05-25 16:11 | PDOC ---
Documentation entered by Laly Jj SCRIBE, acting as scribe for Hakeem Santos MD. Hakeem Santos MD: This documentation has been prepared by the Анна cotton Nirvannie, SCRIBE, under my direction and personally reviewed by me in its entirety. I confirm that the documentation accurately reflects all work, treatment, procedures, and medical decision making performed by me. Attending Attestation - Resident Resident Name: Jose Godinez - ED Attending Attestation I have performed the following: I have examined & evaluated the patient, The case was reviewed & discussed with the resident, I agree w/resident's findings & plan, Exceptions are as noted - HPI HPI: 05/25/19 16:05 The patient is a 73 year old male, with a significant past medical history of Afib, CVA, COPD, HTN, HLD, who presents to the emergency department via EMS from [facility] bilateral lower extremity edema. He denies any chest pain. Allergies: Lisinopril - Physicial Exam PE: 05/25/19 16:14 Vitals: Triage Vital signs reviewed General Appearance: Chronically ill-appearing Head: Atraumatic, Cardiac: Regular rate and rhythym, no murmurs, no rubs, no gallops, Lungs: Clear to auscultation bilateral, good air movement bilaterally, Abdomen: Soft, slightly distended, normal bowel sounds, non tender to palpation Extremities: Bilateral pitting edema with superficial cellulitis Psych: Normal mood, normal affect - Medical Decision Making 05/25/19 16:15 Ill-appearing gentleman with bilateral lower extremity swelling tachycardia hypotension sepsis order set initiated however IV fluids are being held at this point given concern for decompensated heart failure We will check labs CTA duplexes observe and reassess Dr. Sanabria to follow-up labs imaging and dispo
[2019-05-25 17:17] LABS: VENOUS PH 7.32 (7.31-7.41)
[2019-05-25 17:19] LABS: BASO % 0.5 % (0-2.0); EOS % 3.7 % (0-4.5); HEMATOCRIT 37.5 % (35.4-49); HEMOGLOBIN 12.4 GM/dL (11.7-16.9); LYMPH % 10.6 % (8-40); MCH 28.1 pg (25.7-33.7); MCHC 33.1 g/dl (32.0-35.9); MEAN CELL VOLUME 85.1 fl (80-96); MEAN PLT VOLUME 9.3 fl (7.5-11.1); MONO % 8.4 % (3.8-10.2); NEUT % 76.8 % (42.8-82.8); PLATELET COUNT 190 K/MM3 (134-434); RBC 4.41 M/mm3 (4.00-5.60); WHITE BLOOD COUNT 11.9 K/mm3 (4.0-10.0)
[2019-05-25 17:21] LABS: VENOUS PO2 < 49 mmHg (28-48)
[2019-05-25 17:24] LABS: VENOUS PC02 78.6 mmHg (38-52)
[2019-05-25 17:29] LABS: INR 1.22 (0.83-1.09); PROTHROMBIN TIME (PATIENT) 14.4 SEC (9.7-13.0)
[2019-05-25 17:32] LABS: ACTIVATED PTT 34.6 SECONDS (25.2-36.5)
[2019-05-25 18:02] LABS: ALBUMIN 3.5 g/dl (3.4-5.0); ALK PHOS 169 U/L (45-117); ANION GAP 7 MMOL/L (8-16); BILIRUBIN,TOTAL 2.9 mg/dL (0.2-1); BLOOD UREA NITROGEN 19.3 mg/dL (7-18); CALCIUM 8.8 mg/dL (8.5-10.1); CHLORIDE 93 mmol/L (98-107); CO2 36 mmol/L (21-32); CREATININE 1.5 mg/dL (0.55-1.3); GLUCOSE,RANDOM 99 mg/dL (74-106); POTASSIUM 3.6 mmol/L (3.5-5.1); SGOT/AST 15 U/L (15-37); SGPT/ALT 24 U/L (13-61); SODIUM 136 mmol/L (136-145); TOT PROT 7.4 g/dl (6.4-8.2)
--- NOTE | 2019-05-25 19:09 | PDOC ---
*Physical Exam - Vital Signs Last Vital Signs Temp Pulse Resp BP Pulse Ox 97.9 F 127 H 24 H 99/60 99 05/25/19 16:30 05/25/19 14:20 05/25/19 14:20 05/25/19 14:20 05/25/19 14:20 ED Treatment Course - LABORATORY CBC & Chemistry Diagram: 05/25/19 16:48 05/25/19 16:48 - ADDITIONAL ORDERS Additional order review: Laboratory Results 05/25/19 05/25/19 05/25/19 16:48 16:48 16:48 PT with INR INR PTT (Actin FS) VBG pH 7.32 POC VBG pCO2 78.6 H* POC VBG pO2 < 49 H VBG HCO3 39.7 H VBG O2 Sat (Kenrick) 21.4 L VBG Base Excess 9.7 H Sodium 136 Potassium 3.6 Chloride 93 L Carbon Dioxide 36 H Anion Gap 7 L BUN 19.3 H Creatinine 1.5 H Est GFR (CKD-EPI)AfAm 52.03 Est GFR (CKD-EPI)NonAf 44.89 Random Glucose 99 Lactic Acid 1.4 Calcium 8.8 Total Bilirubin 2.9 H AST 15 ALT 24 Alkaline Phosphatase 169 H Troponin I < 0.02 Total Protein 7.4 Albumin 3.5 05/25/19 16:48 PT with INR 14.40 H INR 1.22 H PTT (Actin FS) 34.6 VBG pH POC VBG pCO2 POC VBG pO2 VBG HCO3 VBG O2 Sat (Kenrick) VBG Base Excess Sodium Potassium Chloride Carbon Dioxide Anion Gap BUN Creatinine Est GFR (CKD-EPI)AfAm Est GFR (CKD-EPI)NonAf Random Glucose Lactic Acid Calcium Total Bilirubin AST ALT Alkaline Phosphatase Troponin I Total Protein Albumin 05/25/19 16:48 RBC 4.41 MCV 85.1 MCHC 33.1 RDW 18.0 H MPV 9.3 D Neutrophils % 76.8 Lymphocytes % 10.6 Monocytes % 8.4 Eosinophils % 3.7 Basophils % 0.5 - Medications Given in the ED: ED Medications Discontinued Medications Generic Name Dose Route Start Last Admin Trade Name Freq PRN Reason Stop Dose Admin Albuterol/Ipratropium 1 amp 05/25/19 15:43 05/25/19 16:29 Duoneb - NEB 05/25/19 15:44 1 amp ONCE ONE Administration Sodium Chloride 2,803 mls @ 1,401.5 mls/hr 05/25/19 15:37 05/25/19 16:28 Normal Saline - 30 ml/kg infuse over 2 hr (2803 ml) 05/25/19 17:36 1,401.5 mls/hr IV Administration ONCE ONE Medical Decision Making - Medical Decision Making Patient signed out by Dr. Godinez 73yo 7M with PMH of Afib, CVA, COPD on home O2, HTN, HLD, with sacral fractures sent from [facility] for bilateral LE edema Pending CTA Chest and Duplex BLE to rule out PE/DVT 05/25/19 19:08 CTA: " EXAM#: TYPE/EXAM: RESULT: [id number] CT/CHEST CTA Chest CT angiography Clinical information: evaluate for pulmonary embolism multiplanar imaging was performed following the intravenous administration of nonionic contrast. No prior CT studies are available at this facility for direct comparison. No discrete pulmonary embolus is noted. A small right pleural effusion is seen layering posteriorly with resultant mild basilar compressive atelectasis. Mild bilateral septal line thickening is noted suggestive of interstitial vascular congestion. Possible minimal to mild cardiomegaly. There is no pericardial effusion. Prominent atherosclerotic calcifications are seen along the left anterior descending coronary artery. A mildly enlarged right hilar lymph node is noted. The trachea and central bronchi demonstrate no obvious pathology. There is no aortic aneurysm. No obvious acute osseous abnormality is seen. Impression: No CT evidence of pulmonary embolism. Small right pleural effusion. Probable minimal to mild cardiomegaly. Probable mild interstitial pulmonary vascular congestion. A mildly enlarged right inferior hilar lymph node is seen which may be reactive in nature. Correlation with 3 month follow-up CT is suggested to document stability/resolution. Reported By: Leonard Ramirez MD 05/25/19 193 " Pending US report Clindamycin ordered for BLE cellulitis 05/25/19 20:08 US: " EXAM#: TYPE/EXAM: RESULT: [id number] US/DUPLEX VASCUL US-2LEGS Bilateral lower extremity venous ultrasound Clinical information given: bilateral leg swelling, evaluate for DVT The exam was performed utilizing compression, grayscale, color flow and doppler sonography. There is no sonographic evidence of deep vein thrombosis. If there is clinical concern for possible isolated calf DVT or if there is a clinical diagnosis of uncomplicated superficial thrombophlebitis, then correlation with close follow up sonography is suggested. Impression: No DVT is identified involving either leg. Please see above. Reported By: Leonard Ramirez MD 05/25/192007 " MB sent 05/25/19 20:29 Discussed case with GINGER Sidhu who accepted patient for admission under Dr. Still 05/25/19 20:39 Discharge - Discharge Information Problems reviewed: Yes Clinical Impression/Diagnosis: Bilateral lower leg cellulitis Condition: Guarded - Admission Yes - Follow up/Referral Referrals: Frantz Elam MD [Primary Care Provider] - - Patient Discharge Instructions - Post Discharge Activity
[2019-05-25 19:17] LABS: EPI CELLS 0.2 /HPF (0-5/HPF); HYALINE CASTS 3 /lpf (0-8); URINE APPEARANCE CLOUDY; URINE BACTERIA 4.3 /hpf (NEGATIVE); URINE BILIRUBIN NEGATIVE (NEGATIVE); URINE COLOR YELLOW; URINE GLUCOSE (UA) NEGATIVE (NEGATIVE); URINE KETONE NEGATIVE (NEGATIVE); URINE LEUK ESTERASE 2+ (NEGATIVE); URINE NITRITE NEGATIVE (NEGATIVE); URINE PROTEIN NEGATIVE (NEGATIVE); URINE RBC 2 /hpf (0-4); URINE UROBILINOGEN 0.2 mg/dL (0.2-1.0); URINE WBC 170 /hpf (0-5)
[2019-05-25] MEDS ORDERED: CLINDAMYCIN 600MG PREMIX IVPB 600 MG/50 ML BAG IVPB ONE ×2 (20:04→20:44)
--- NOTE | 2019-05-25 20:57 | HP ---
Admitting History and Physical - Primary Care Physician PCP: Frantz Elam ([facility]) - Admission Chief Complaint: Bilateral Lower Extremity Edema, SOB History of Present Illness: This is a 73 y/o man from [facility] with a PMHx of Afib, CAD s/p Stent, CVA , HTN, HLD, COPD (on O2). Who presents to the ED for SOB, bilateral lower extremity edema, erythema and SOB. Patient reports increased tightness and pain to lower legs x several days. Patient denies chest pain or palpitations. Patient denies fever, chills, dizziness, AP, N/V/D History Source: Patient, Transfer Record Limitations to Obtaining History: No Limitations - Past Medical History PR INTERN: Yes: CVA Cardiovascular: Yes: AFIB, CAD, HTN, Hyperlipdemia Pulmonary: Yes: COPD, O2 Dependent Endocrine: Yes: Hypothyroidism - Past Surgical History Past Surgical History: Yes: Joint Replacement, Stent - Smoking History Smoking history: Former smoker Have you smoked in the past 12 months: No If you are a former smoker, when did you quit?: 1 year - Alcohol/Substance Use Hx Alcohol Use: No (Former ETOH Abuse) - Social History Usual Living Arrangement: Yes: Intermediate ADL: Support Services Occupation: Retired-[employer] History of Recent Travel: No Home Medications - Allergies Allergies/Adverse Reactions: Allergies Allergy/AdvReac Type Severity Reaction Status Date / Time lisinopril Allergy Verified 05/25/19 19:15 "all prils" Allergy Uncoded 05/25/19 19:15 - Home Medications Home Medications: Ambulatory Orders Aspirin Coated [Ecotrin -] 81 mg PO DAILY 04/03/19 Atorvastatin Calcium 40 mg PO HS 04/03/19 Carvedilol [Coreg -] 3.125 mg PO BID 04/03/19 Folic Acid - 1 mg PO DAILY 04/03/19 Ipratropium/Albuterol Sulfate [Iprat-Albut 0.5-3(2.5) mg/3 ml] 3 ml IH QID 04/03 Melatonin 3 mg PO HS 04/03/19 Thiamine HCl [B-1] 100 mg PO DAILY 04/03/19 Tamsulosin HCl [Flomax -] 0.4 mg PO HS #30 cap.er.24h 04/09/19 traMADol HCL [Ultram -] 50 mg PO Q6H PRN #90 tablet MDD 200 04/10/19 Furosemide 40 mg PO DAILY 05/25/19 Levothyroxine [Synthroid -] 100 mcg PO DAILY@0700 05/25/19 Metolazone 2.5 mg PO DAILY 05/25/19 Mirtazapine 7.5 mg PO HS 05/25/19 Potassium Chloride 10 meq PO DAILY 05/25/19 Family Medical History Family History: Unable to Obtain Review of Systems - Review of Systems Constitutional: reports: No Symptoms Eyes: reports: No Symptoms HENT: reports: No Symptoms Neck: reports: No Symptoms Cardiovascular: reports: Edema, Shortness of Breath Respiratory: reports: SOB, SOB on Exertion Gastrointestinal: reports: No Symptoms Genitourinary: reports: No Symptoms Breasts: reports: No Symptoms Reported Musculoskeletal: reports: Extremity Pain Integumentary: reports: Erythema Neurological: reports: No Symptoms Endocrine: reports: No Symptoms Hematology/Lymphatic: reports: No Symptoms Psychiatric: reports: No Symptoms Pain Intensity: 6 Physical Examination Vital Signs: Vital Signs Temperature 97.9 F 05/25/19 16:30 Pulse Rate 127 H 05/25/19 14:20 Respiratory Rate 24 H 05/25/19 14:20 Blood Pressure 99/60 05/25/19 14:20 O2 Sat by Pulse Oximetry (%) 99 05/25/19 15:00 Constitutional: Yes: No Distress, Anxious Eyes: Yes: WNL, Conjunctiva Clear, EOM Intact, PERRL HENT: Yes: WNL, Atraumatic, Normocephalic Neck: Yes: WNL, Supple, Trachea Midline Cardiovascular: Yes: Tachycardia, Pulse Irregular, S1, S2 Respiratory: Yes: Diminished, On Nasal O2 Gastrointestinal: Yes: Normal Bowel Sounds, Soft, Abdomen, Obese Renal/: Yes: WNL Breast(s): Yes: WNL Extremities: Yes: Erythema (bilateral LE) Edema: Yes Edema: LLE: 2+, RLE: 2+ Peripheral Pulses WNL: Yes Integumentary: Yes: Erythema Wound/Incision: Yes: Reddened Neurological: Yes: Alert, Oriented Psychiatric: Yes: WNL, Alert, Oriented Labs: CBC, BMP 05/25/19 16:48 05/25/19 16:48 Laboratory Results - last 24 hr 05/25/19 05/25/19 05/25/19 16:48 16:48 16:48 WBC 11.9 H RBC 4.41 Hgb 12.4 Hct 37.5 D MCV 85.1 MCH 28.1 MCHC 33.1 RDW 18.0 H Plt Count 190 D MPV 9.3 D Absolute Neuts (auto) 9.2 H Neutrophils % 76.8 Lymphocytes % 10.6 Monocytes % 8.4 Eosinophils % 3.7 Basophils % 0.5 Nucleated RBC % 0 PT with INR 14.40 H INR 1.22 H PTT (Actin FS) 34.6 VBG pH POC VBG pCO2 POC VBG pO2 VBG HCO3 VBG O2 Sat (Kenrick) VBG Base Excess Sodium 136 Potassium 3.6 Chloride 93 L Carbon Dioxide 36 H Anion Gap 7 L BUN 19.3 H Creatinine 1.5 H Est GFR (CKD-EPI)AfAm 52.03 Est GFR (CKD-EPI)NonAf 44.89 Random Glucose 99 Lactic Acid Calcium 8.8 Total Bilirubin 2.9 H AST 15 ALT 24 Alkaline Phosphatase 169 H Troponin I < 0.02 B-Natriuretic Peptide 6096.4 H Total Protein 7.4 Albumin 3.5 Urine Color Urine Appearance Urine pH Ur Specific [place] Urine Protein Urine Glucose (UA) Urine Ketones Urine Blood Urine Nitrite Urine Bilirubin Urine Urobilinogen Ur Leukocyte Esterase Urine WBC (Auto) Urine RBC (Auto) Urine Casts (Auto) U Epithel Cells (Auto) Urine Bacteria (Auto) 05/25/19 05/25/19 05/25/19 16:48 16:48 17:36 WBC RBC Hgb Hct MCV MCH MCHC RDW Plt Count MPV Absolute Neuts (auto) Neutrophils % Lymphocytes % Monocytes % Eosinophils % Basophils % Nucleated RBC % PT with INR INR PTT (Actin FS) VBG pH 7.32 POC VBG pCO2 78.6 H* POC VBG pO2 < 49 H VBG HCO3 39.7 H VBG O2 Sat (Kenrick) 21.4 L VBG Base Excess 9.7 H Sodium Potassium Chloride Carbon Dioxide Anion Gap BUN Creatinine Est GFR (CKD-EPI)AfAm Est GFR (CKD-EPI)NonAf Random Glucose Lactic Acid 1.4 Calcium Total Bilirubin AST ALT Alkaline Phosphatase Troponin I B-Natriuretic Peptide Total Protein Albumin Urine Color Yellow Urine Appearance Cloudy Urine pH 5.0 Ur Specific [place] 1.012 Urine Protein Negative Urine Glucose (UA) Negative Urine Ketones Negative Urine Blood Negative Urine Nitrite Negative Urine Bilirubin Negative Urine Urobilinogen 0.2 Ur Leukocyte Esterase 2+ H Urine WBC (Auto) 170 Urine RBC (Auto) 2 Urine Casts (Auto) 3 U Epithel Cells (Auto) 0.2 Urine Bacteria (Auto) 4.3 Intake & Output 05/23/19 05/24/19 05/25/19 05/26/19 23:59 23:59 23:59 23:59 Intake Total 2503 Output Total 300 Balance 2203 Weight 93.44 kg Current Medications Generic Name Dose Route Start Last Admin Trade Name Freq PRN Reason Stop Dose Admin Aspirin 81 mg 05/26/19 10:00 Ecotrin - PO DAILY [facility] Atorvastatin Calcium 40 mg 05/26/19 22:00 Lipitor - PO HS [facility] Carvedilol 3.125 mg 05/26/19 10:00 Coreg - PO BID STEVE Folic Acid 1 mg 05/26/19 10:00 Folic Acid - PO DAILY STEVE Furosemide 40 mg 05/26/19 06:00 Lasix Injection - IVPUSH BID@0600,1400 [facility] Levothyroxine Sodium 100 mcg 05/26/19 07:00 Synthroid - PO DAILY@0700 [facility] Mirtazapine 7.5 mg 05/25/19 23:46 Remeron - PO HS [facility] Tamsulosin HCl 0.4 mg 05/26/19 08:30 Flomax - PO DAILY@0830 [facility] Thiamine HCl 100 mg 05/26/19 10:00 Vitamin B1 - PO DAILY [facility] Imaging - Results Chest X-ray: Report Reviewed, Image Reviewed Cat Scan: Report Reviewed, Image Reviewed EKG: Image Reviewed Problem List - Problems (1) Atrial flutter Assessment/Plan: Likely due to fluid overload Continue cardiac monitoring Serial Enzymes Appreciate Cardiology consult Continue home meds EKG- Aflutter with 2:1 AV conduction, cannot r/o anterior infarct age undertermined, change compared to prior study NSR with PVCs Chest Xray-cardiomegaly, congestive changes, small right pleural effusion Echo Code(s): I48.92 - UNSPECIFIED ATRIAL FLUTTER (2) New onset of congestive heart failure Assessment/Plan: BNP > 6000 Chest Xray- congestive changes Lasix given in ED, will continue BID Appreciate Cardiology consult Strict INOs Daily weight O2 Monitor CBC, BMP Code(s): I50.9 - HEART FAILURE, UNSPECIFIED (3) Cellulitis Assessment/Plan: WBC 11.9 Blood Cultures-pending Duplex of LE- neg DVT Clindamycin given in ED, will continue Appreciate ID consult Elevate extremities Monitor CBC, BMP Monitor vitals Code(s): L03.90 - CELLULITIS, UNSPECIFIED (4) Pleural effusion Assessment/Plan: Chest Xray reviewed Appreciate Cardiology consult Appreciate Pulmonology consult O2 Echo Monitor vitals Code(s): J90 - PLEURAL EFFUSION, NOT ELSEWHERE CLASSIFIED (5) COPD (chronic obstructive pulmonary disease) Assessment/Plan: Sub optimal Likely secondary to fluid overload Chest Xray- cardiomegaly, congestive changes, right pleural effusion Appreciate Pulmonology consult Duonebs O2 Code(s): J44.9 - CHRONIC OBSTRUCTIVE PULMONARY DISEASE, UNSPECIFIED (6) HTN (hypertension) Assessment/Plan: stable Continue home meds with parameters Monitor renal function Code(s): I10 - ESSENTIAL (PRIMARY) HYPERTENSION (7) HLD (hyperlipidemia) Assessment/Plan: stable Continue Lipitor Monitor LFTs Code(s): E78.5 - HYPERLIPIDEMIA, UNSPECIFIED (8) Hypothyroid Assessment/Plan: stable Continue home med TSH in am Code(s): E03.9 - HYPOTHYROIDISM, UNSPECIFIED Assessment/Plan This is a 73 y/o man from [facility] with a PMHx of Afib, CAD s/p Stent, CVA , HTN, HLD, COPD (on O2). Who presents to the ED for SOB, bilateral lower extremity edema, erythema and SOB. Admitted to Telemetry for Aflutter with RVR, New Onset CHF, SOB, Pleural Effusion, Cellulitis of Lower Extremity for further evaluation of their emergent condition. Plan: See Problem List FEN Fluid Restriction Replete lytes prn Low Na Diet DVT ppx OOB SCDs Heparin SQ Code Status: DNR/DNI, MOLST Dispo: Requires Inpatient Care Visit type - Emergency Visit Emergency Visit: Yes ED Registration Date: 05/25/19 Care time: The patient presented to the Emergency Department on the above date and was hospitalized for further evaluation of their emergent condition. - New Patient This patient is new to me today: Yes Date on this admission: 05/25/19 - Critical Care Critical Care patient: No
[2019-05-25] MEDS ORDERED: CARVEDILOL 3.125 MG TABLET (FP) PO ONE (22:30)
[2019-05-25] MEDS ORDERED: CARVEDILOL 3.125 MG TABLET (FP) ONE (22:36)
[2019-05-25 23:16] LABS: N-TERMINAL BNP 6096.4 pg/ml (5-450)
[2019-05-26] MEDS: MIRTAZAPINE 15 MG TABLET (FP) PO SCH ×2 (00:05→23:05)
[2019-05-26] MEDS: FUROSEMIDE 40 MG/4 ML INJECTABLE VIAL IVPUSH SCH ×3 (06:19→19:47)
[2019-05-26] MEDS: LEVOTHYROXINE NA 100 MCG TABLET (FP) PO SCH (06:19)
[2019-05-26 07:50] LABS: BASO % 0.7 % (0-2.0); EOS % 3.1 % (0-4.5); HEMOGLOBIN 10.4 GM/dL (11.7-16.9); LYMPH % 10.3 % (8-40); MCH 28.4 pg (25.7-33.7); MCHC 33.5 g/dl (32.0-35.9); MEAN CELL VOLUME 84.7 fl (80-96); MONO % 8.6 % (3.8-10.2); NEUT % 77.3 % (42.8-82.8); PLATELET COUNT 160 K/MM3 (134-434); RBC 3.66 M/mm3 (4.00-5.60); RDW 17.9 % (11.9-15.9); WHITE BLOOD COUNT 10.5 K/mm3 (4.0-10.0)
[2019-05-26 08:20] LABS: CALCIUM 8.4 mg/dL (8.5-10.1); CREATININE 1.5 mg/dL (0.55-1.3); POTASSIUM 3.9 mmol/L (3.5-5.1)
[2019-05-26] MEDS ORDERED: CLINDAMYCIN 600MG PREMIX IVPB 600 MG/50 ML BAG IVPB SCH (10:00)
[2019-05-26] MEDS ORDERED: CARVEDILOL 3.125 MG TABLET (FP) PO SCH (10:00)
--- NOTE | 2019-05-26 10:56 | PN ---
Progress Note (short form) - Note Progress Note: ID consult dictated imlp/reccd 73 yo man admitted with SOB, worsening leg edema and erythema and tachycardia cellulitis afib with RVR chf shima cultures sent afebrile would switch to cefazolin no history of MRSA cardiology to evaluate Problem List - Problems (1) Cellulitis Code(s): L03.90 - CELLULITIS, UNSPECIFIED (2) Afib Code(s): I48.91 - UNSPECIFIED ATRIAL FIBRILLATION (3) CHF exacerbation Code(s): I50.9 - HEART FAILURE, UNSPECIFIED (4) SHIMA (acute kidney injury) Code(s): N17.9 - ACUTE KIDNEY FAILURE, UNSPECIFIED
[2019-05-26] MEDS ORDERED: DEXTROSE 5%-WATER - 50 ML IVPB ONE ×2 (11:03→22:50)
[2019-05-26] MEDS ORDERED: ceFAZolin SODIUM 1 GM VIAL ONE ×2 (11:03→22:49)
[2019-05-26] MEDS: THIAMINE HCL 100 MG TABLET (FP) PO SCH (11:13)
[2019-05-26] MEDS: FOLIC ACID 1 MG TABLET (FP) PO SCH (11:13)
[2019-05-26] MEDS: CEFAZOLIN 1 GM in DEXTROSE 5%-WATER - 50 ML IVPB SCH ×2 (11:13→23:03)
[2019-05-26] MEDS: ASPIRIN COATED 81 MG TABLET.EC PO SCH (11:13)
[2019-05-26] MEDS: TAMSULOSIN HCL 0.4 MG CAP PO SCH (11:13)
--- NOTE | 2019-05-26 11:26 | CONS ---
INFECTIOUS DISEASE CONSULTATION DATE OF CONSULTATION: DATE OF DICTATION: 05/26/2019 HISTORY: This is a 73-year-old man with COPD on home oxygen 2 L, atrial fibrillation, coronary artery disease, cerebrovascular accident who [facility] with progressive shortness of breath and leg swelling. I am asked to see him for cellulitis. Patient denies any fevers or chills. He notes he is chronically short of breath and is at his baseline. He has been ambulating with a walker at the prison, and he notes over the last 4 days his legs have become itchy and burning and swollen. PAST MEDICAL HISTORY: Notable for hypertension, COPD on oxygen, atrial fibrillation, coronary artery disease status post stents, CVA, hypertension, hypothyroidism, hyperlipidemia. He is status post fall in March of 2019. He had sacral fractures, which were managed medically. He also during his last admission had a sensitive Klebsiella UTI and was treated with ceftriaxone and Ceftin. SURGICAL HISTORY: Notable for history of penile implant, tonsillectomy, and left hip fracture. SOCIAL HISTORY: He is a greater than [id number] smoker. He quit a year ago. Quit alcohol a year ago as well. There is no substance use. ALLERGIES: He is allergic to LISINOPRIL. CURRENT MEDICATIONS: At the prison include aspirin, atorvastatin, Coreg, folic acid, furosemide, levothyroxine, melatonin, metolazone, which was just started on the , mirtazapine, tamsulosin, , Tramadol, and Xopenex inhaler as needed. Prednisone was completed on the . SOCIAL HISTORY: As stated. REVIEW OF SYSTEMS: He has a daily bowel movement. He denies any dysuria. He denies any fevers or chills. PHYSICAL EXAMINATION: General: He is an elderly man. He looks mildly short of breath. Vital Signs: His temperature is 97.9. He has had no fever since admission. His heart rate is 124, blood pressure is 113/67, his respiratory rate is 18. He weighs 89 kg. HEENT: He is normocephalic. He has dentures in place. Neck: Supple. Lungs: Diminished breath sounds at the base. Heart: Irregular and tachycardic. Abdomen: Protuberant but soft. Extremities: Bilateral edema with erythema extending up to below the knees. DIAGNOSTIC DATA: Labs are notable for a white count of 10.5, hemoglobin 10.4, platelets are 160. BUN 23, creatinine 1.5. Cultures are pending. In his imaging studies, he had a duplex of his legs that was negative for DVT. He had a CTA of his chest. It was notable for no PE. Small right pleural effusion. [id number] cardiomegaly. Some mild interstitial pulmonary congestion. In summary, this is a 73-year-old man with atrial flutter, CHF, and lower extremity cellulitis. No history of MRSA. He has no fevers or chills. I would suggest we treat him with cefazolin at this time. He is seen by Cardiology for his tachycardia and his heart failure. Further recommendations to follow. ALEXANDRO MENDOZA M.D. [id number]
--- NOTE | 2019-05-26 11:44 | CON.PULM ---
Consult Consult Specialty:: PULMONARY Referred by:: PMD Reason for Consultation:: SENT FROM [facility] DUE TO SOB/LEG EDEMA - History of Present Illness Chief Complaint: SOB History of Present Illness: Gregory Jacobs is a 73M with PMH Afib, CVA, COPD on home O2, HTN, HLD, bilateral hip fractures sent from [facility] for bilateral LE edema. Patient reports a few months ago fell and broke his hip, then after being discharged fell in parking lot and broke other hip, both fractures non-operative , discharged to [facility] for rehab. Now sent from rehab for worsening BLE edema for eval and sob. Patient reports legs are chronically swollen, on Lasix without improvement. At baseline on 2-3L O2 at home for COPD. Denies fever, chills, nausea, vomiting, abdominal pain, diarrhea, vision changes, dizziness, chest pain. Has multiple ulcers to legs from swelling, dressings changed by nurse. 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: CVA Cardio/Vascular: Yes: AFIB, CAD, HTN, Hyperlipdemia Pulmonary: Yes: COPD, O2 Dependent Endocrine: Yes: Hypothyroidism - Past Surgical History Past Surgical History: Yes: Joint Replacement, Stent - Alcohol/Substance Use Hx Alcohol Use: No (Former ETOH Abuse) - Smoking History Smoking history: Former smoker Have you smoked in the past 12 months: No If you are a former smoker, when did you quit?: 1 year - Social History ADL: Support Services Occupation: Retired-[employer] History of Recent Travel: No Home Medications - Allergies Allergies/Adverse Reactions: Allergies Allergy/AdvReac Type Severity Reaction Status Date / Time lisinopril Allergy Verified 05/25/19 19:15 "all prils" Allergy Uncoded 05/25/19 19:15 - Home Medications Home Medications: Ambulatory Orders Aspirin Coated [Ecotrin -] 81 mg PO DAILY 04/03/19 Atorvastatin Calcium 40 mg PO HS 04/03/19 Carvedilol [Coreg -] 3.125 mg PO BID 04/03/19 Folic Acid - 1 mg PO DAILY 04/03/19 Ipratropium/Albuterol Sulfate [Iprat-Albut 0.5-3(2.5) mg/3 ml] 3 ml IH QID 12/17 /19 Melatonin 3 mg PO HS 04/03/19 Thiamine HCl [B-1] 100 mg PO DAILY 04/03/19 Tamsulosin HCl [Flomax -] 0.4 mg PO HS #30 cap.er.24h 04/09/19 traMADol HCL [Ultram -] 50 mg PO Q6H PRN #90 tablet MDD 200 04/10/19 Furosemide 40 mg PO DAILY 05/25/19 Levothyroxine [Synthroid -] 100 mcg PO DAILY@0700 05/25/19 Metolazone 2.5 mg PO DAILY 05/25/19 Mirtazapine 7.5 mg PO HS 05/25/19 Potassium Chloride 10 meq PO DAILY 05/25/19 Family Medical History Family History: Unable to Obtain Review of Systems Unable to obtain ROS, reason: poor informant Physical Exam Vital Sings: Vital Signs Temperature 97.9 F 05/26/19 06:24 Pulse Rate 124 H 05/26/19 06:24 Respiratory Rate 18 05/26/19 06:24 Blood Pressure 113/67 05/26/19 06:24 O2 Sat by Pulse Oximetry (%) 95 05/25/19 23:40 Constitutional: Yes: Anxious Eyes: Yes: EOM Intact HENT: Yes: Normocephalic Neck: Yes: Trachea Midline Cardiovascular: Yes: Pulse Irregular, S1, S2 Respiratory: Yes: Diminished Gastrointestinal: Yes: Soft Edema: LLE: 2+, RLE: 2+ Integumentary: Yes: Erythema (b/l lower ext) Labs: CBC, BMP 05/26/19 06:05 05/26/19 06:05 rest reviewed Imaging - Results Chest X-ray: Report Reviewed, Image Reviewed Cat Scan: Report Reviewed, Image Reviewed Ultrasound: Report Reviewed Problem List - Problems (1) Afib Code(s): I48.91 - UNSPECIFIED ATRIAL FIBRILLATION (2) CHF exacerbation Code(s): I50.9 - HEART FAILURE, UNSPECIFIED (3) COPD (chronic obstructive pulmonary disease) Code(s): J44.9 - CHRONIC OBSTRUCTIVE PULMONARY DISEASE, UNSPECIFIED (4) Cellulitis Code(s): L03.90 - CELLULITIS, UNSPECIFIED Assessment/Plan VBG SHOWS PCO2 [address] 7[address]32 LIKELY CHRONIC CO2 RETAINER(COPD) COPD AND PL EFFUSION ON CXR/NO PE VASCULAR STUDY UNREVEALING FOR DVT AGREE WITH TREATMENT FOR CELLULITIS CONTINUE O2 BRONCHODILATORS CONSIDER NIPPV TO IMPROVE VENTILATION WILL FOLLOW Homer ROMANO MD
[2019-05-26] MEDS ORDERED: METOPROLOL TARTRATE 5 MG/5 ML VIAL IVPUSH ONE (13:49)
--- NOTE | 2019-05-26 14:06 | CON.CARD ---
Consult Consult Specialty:: Cardiology Referred by:: Dr. Cavanaugh Reason for Consultation:: sob, chf, pleural effusion, tachycardia - History of Present Illness Chief Complaint: LE edema History of Present Illness: 73 year old man with a pmh of HTN, HLD, COPD on home O2, reported Afib although pt not aware, CAD with h/o stent as per pt 2007 at [facility], chronic b/l LE edema, [facility] resident admitted with worsening b/l LE edema, erythema, cellulitis, sob. pt seen and examined today in nad. states he is feeling a little better since admission. states he came to hospital because of his leg swelling. denies any significant change to his chronic sob. no chest pain. no palpitations. no pnd, orthopnea. 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 Occupation: Retired-[employer] History of Recent Travel: No Home Medications - Allergies Allergies/Adverse Reactions: Allergies Allergy/AdvReac Type Severity Reaction Status Date / Time lisinopril Allergy Verified 05/25/19 19:15 "all prils" Allergy Uncoded 05/25/19 19:15 - Home Medications Home Medications: Ambulatory Orders Aspirin Coated [Ecotrin -] 81 mg PO DAILY 04/03/19 Atorvastatin Calcium 40 mg PO HS 04/03/19 Carvedilol [Coreg -] 3.125 mg PO BID 04/03/19 Folic Acid - 1 mg PO DAILY 04/03/19 Ipratropium/Albuterol Sulfate [Iprat-Albut 0.5-3(2.5) mg/3 ml] 3 ml IH QID 04/03 Melatonin 3 mg PO HS 04/03/19 Thiamine HCl [B-1] 100 mg PO DAILY 04/03/19 Tamsulosin HCl [Flomax -] 0.4 mg PO HS #30 cap.er.24h 04/09/19 traMADol HCL [Ultram -] 50 mg PO Q6H PRN #90 tablet MDD 200 04/10/19 Furosemide 40 mg PO DAILY 05/25/19 Levothyroxine [Synthroid -] 100 mcg PO DAILY@0700 05/25/19 Metolazone 2.5 mg PO DAILY 05/25/19 Mirtazapine 7.5 mg PO HS 05/25/19 Potassium Chloride 10 meq PO DAILY 05/25/19 Family Medical History Family History: Denies Review of Systems - Review of Systems Constitutional: denies: No Symptoms, Chills, Diaphoresis, Fever, Lethargy, Loss of Appetite, Malaise, Night Sweats, Unintentional Wgt. Loss, Weakness, Other Eyes: denies: No Symptoms, Blind Spots, Blurred Vision, Double Vision, Eye Pain , Floaters, Photophobia, Recent Change in Vision, Other HENT: denies: No Symptoms, Difficult Swallowing, Ear Discharge, Ear Pain, Epistaxis, Gingival Bleeding, Hearing Loss, Mouth Swelling, Nasal Congestion, Ocular Prosthesis, Throat Pain, Toothache, Ringing in Ears, Other Neck: denies: No Symptoms, Decreased ROM, Lumps, Pain on Movement, Stiffness, Swollen Glands, Tenderness, Other Cardiovascular: reports: Edema, Shortness of Breath. denies: No Symptoms, Chest Pain, Palpitations, Other Respiratory: reports: Exercise Intolerance, SOB, SOB on Exertion, Wheezing. denies: No Symptoms, Cough, Hemoptysis, Orthopnea, PND, Snoring, Other Gastrointestinal: denies: No Symptoms, Abdominal Pain, Bloating, Constipation, Diarrhea, Dysphagia, Indigestion, Melena, Nausea, Rectal Bleeding, Vomiting, Vomiting Blood, Other Genitourinary: denies: No Symptoms, Burning, Discharge, Dysuria, Flank Pain, Frequency, Hematuria, Incontinence, Lesions, Menses, Pain, Testicular Mass, Testicular Pain, Testicular Swelling, Urgency, Vaginal Bleeding, Other Breasts: denies: No Symptoms Reported, See HPI, Breast Implants, Discharge from Nipple, Lumps, Pain, Skin Changes, Other Musculoskeletal: denies: No Symptoms, Back Pain, Crepitus, Decreased ROM, Extremity Pain, Joint Pain, Joint Swelling, Muscle Pain, Muscle Cramps, Muscle Weakness, Other Integumentary: reports: Erythema. denies: No Symptoms, Blister, Bruising, Change in Color, Eczema, Incision, Lesions, Lump, Pallor, Pruritis, Rash, Wound , Other Neurological: denies: No Symptoms, Change in LOC, Change in Speech, Confusion, Dizziness, Headache, Incoordination, Numbness, Parasthesia, Pre-Existing Deficit , Seizure, Syncope, Tremors, Unsteady Gait, Weakness, Other Endocrine: denies: No Symptoms, Excessive Sweating, Flushing, Increased Hunger, Increased Thirst, Intolerance to Cold, Intolerance to Heat, Unexplained Weight Gain, Unexplained Weight Loss, Other Hematology/Lymphatic: denies: No Symptoms, Easily Bruised, Excessive Bleeding, Swollen Glands, Other Psychiatric: denies: No Symptoms, Altered Sleep Pattern, Anxiety, Depression, Hallucinations, Panic, Paranoia, Suicidal, Other - Risk Factors Known Risk Factors: Yes: Hypercholesterolemia, Hypertension Vital Signs: Vital Signs Temperature 97.9 F 05/26/19 06:24 Pulse Rate 124 H 05/26/19 06:24 Respiratory Rate 18 05/26/19 06:24 Blood Pressure 113/67 05/26/19 06:24 O2 Sat by Pulse Oximetry (%) 93 L 05/26/19 09:00 Constitutional: Yes: No Distress, Calm Eyes: Yes: Conjunctiva Clear, EOM Intact HENT: Yes: Atraumatic, Normocephalic Neck: Yes: Supple, Trachea Midline Respiratory: Yes: Regular, Diminished, Rales, Rhonchi, Wheezes. No: SOB Gastrointestinal: Yes: Normal Bowel Sounds, Soft Cardiovascular: Yes: Regular Rate and Rhythm, Tachycardia. No: Bradycardia, Pulse Irregular, Gallop, Rub, Varicosities JVD: No Carotid Bruit: No PMI: Non-Displaced Heart Sounds: Yes: S1, S2. No: Split S2, S3, S4, Clicks, Gallop, Rub, Bruit Murmur: No: Systolic Murmur, Diastolic Murmur Musculoskeletal: Yes: Muscle Weakness Extremities: Yes: Erythema Edema: Yes Edema: LLE: 2+, RLE: 2+ Peripheral Pulses WNL: Yes Peripheral Pulses: 2+ Left Doralis Pedis, 2+ Right Dorsalis Pedis Neurological: Yes: Alert, Oriented Psychiatric: Yes: Alert, Oriented - Other Data Labs, Other Data: CBC, BMP 05/26/19 06:05 05/26/19 06:05 INR, PTT INR 1.22 (0.83-1.09) H 05/25/19 16:48 Troponin, BNP 05/25/19 16:48 Troponin I < 0.02 B-Natriuretic Peptide 6096.4 H Troponin, BNP 05/25/19 16:48 Troponin I < 0.02 B-Natriuretic Peptide 6096.4 H ekg-sinus tach vs aflutter Imaging - Results Chest X-ray: Report Reviewed, Image Reviewed EKG: Report Reviewed, Image Reviewed Other: Report Reviewed, Image Reviewed (tele-sinus tach vs aflutter, mild rvr) Assessment/Plan 73 year old man with a pmh of HTN, HLD, COPD on home O2, reported Afib although pt not aware, CAD with h/o stent as per pt 2007 at [facility], chronic b/l LE edema, [facility] resident admitted with worsening b/l LE edema, erythema, cellulitis, sob. pt seen and examined today in nad. states he is feeling a little better since admission. states he came to hospital because of his leg swelling. denies any significant change to his chronic sob. no chest pain. no palpitations. no pnd, orthopnea. LE edema-acute on chronic -likely chronic venous insufficiency as well as acute on chronic CHF unknown type -superimposed cellulitis -cont Abx as per ID reccs -cont Lasix IV for now -monitor strict I/Os, daily weights, bun/creat, electrolytes and replete as needed -echo pending -obtain prior records as to details of cardiac history Arrhythmia-reported h/o AFib but pt unaware of this diagnosis and denies ever being on full AC -on admission possible aflutter vs sinus tach -rhythm not entirely clear on tele but with mild tachycardia -increase Coreg to 6.25mg bid -obtain prior records regarding his history of afib and what consideration was made for AC at that time -cont tele monitoring for now SOB -likely multifactorial due to volume overload as above as well as AE COPD -treatment as above.
[2019-05-26] MEDS ORDERED: CARVEDILOL 3.125 MG TABLET (FP) PO ONE (14:12)
--- NOTE | 2019-05-26 14:32 | EKG ---
Test Reason : Blood Pressure : / mmHG Vent. Rate : 126 BPM Atrial Rate : 252 BPM P-R Int : 000 ms QRS Dur : 088 ms QT Int : 398 ms P-R-T Axes : 000 016 206 degrees QTc Int : 576 ms POOR DATA QUALITY, INTERPRETATION MAY BE ADVERSELY AFFECTED ATRIAL FLUTTER WITH 2:1 A-V CONDUCTION LOW VOLTAGE QRS CANNOT RULE OUT ANTERIOR INFARCT (CITED ON OR BEFORE 03-APR-2019) ABNORMAL ECG Confirmed by MD DANA, MARAH ([id number]) on 05/26/2019 2:31:53 PM Referred By: Confirmed By:MARAH CORTEZ MD
--- NOTE | 2019-05-26 18:07 | PN ---
Progress Note, Physician Chief Complaint: CHF SOB Atrial flutter - Current Medication List Current Medications: Active Medications Aspirin (Ecotrin -) 81 mg PO DAILY [facility] Last Admin: 05/26/19 11:13 Dose: 81 mg Atorvastatin Calcium (Lipitor -) 40 mg PO [facility] Carvedilol (Coreg -) 6.25 mg PO BID [facility] Folic Acid (Folic Acid -) 1 mg PO DAILY [facility] Last Admin: 05/26/19 11:13 Dose: 1 mg Furosemide (Lasix Injection -) 40 mg IVPUSH BID@0600,1400 [facility] Last Admin: 05/26/19 16:15 Dose: Not Given Cefazolin Sodium 1 gm/ (Dextrose) 50 mls @ 100 mls/hr IVPB Q8H-IV [facility] Last Admin: 05/26/19 11:13 Dose: 100 mls/hr Ipratropium [place] (Atrovent 0.02% Nebulizer -) 1 amp NEB Q6H PRN PRN Reason: WHEEZING Levothyroxine Sodium (Synthroid -) 100 mcg PO DAILY@0700 [facility] Last Admin: 05/26/19 06:19 Dose: 100 mcg Mirtazapine (Remeron -) 7.5 mg PO [facility] Last Admin: 05/26/19 00:05 Dose: 7.5 mg Tamsulosin HCl (Flomax -) 0.4 mg PO DAILY@0830 [facility] Last Admin: 05/26/19 11:13 Dose: 0.4 mg Thiamine HCl (Vitamin B1 -) 100 mg PO DAILY [facility] Last Admin: 05/26/19 11:13 Dose: 100 mg - Objective Vital Signs: Vital Signs Temperature 98.1 F 05/26/19 14:00 Pulse Rate 127 H 05/26/19 14:00 Respiratory Rate 20 05/26/19 14:00 Blood Pressure 91/67 05/26/19 14:00 O2 Sat by Pulse Oximetry (%) 93 L 05/26/19 09:00 Constitutional: Yes: Well Nourished, No Distress, Calm Cardiovascular: Yes: Regular Rate and Rhythm Respiratory: Yes: Regular, On Nasal O2, SOB on Exertion Gastrointestinal: Yes: Normal Bowel Sounds, Soft Genitourinary: Yes: WNL Musculoskeletal: Yes: Muscle Weakness Extremities: Yes: Erythema (BLLE) Edema: Yes Edema: LLE: 2+, RLE: 2+ Peripheral Pulses WNL: Yes Neurological: Yes: Alert, Oriented Psychiatric: Yes: Alert, Oriented Labs: CBC, BMP 05/26/19 06:05 05/26/19 06:05 INR, PTT INR 1.22 (0.83-1.09) H 05/25/19 16:48 Problem List - Problems (1) SHIMA (acute kidney injury) Assessment/Plan: -Nephrology consult -monitor Cr trend Problems reviewed: Yes Code(s): N17.9 - ACUTE KIDNEY FAILURE, UNSPECIFIED (2) Afib Assessment/Plan: -chronic? -Continue Carvedilol 6.25 mg po BID -Await echo to determine any valvular involvement -Tele monitor Problems reviewed: Yes Code(s): I48.91 - UNSPECIFIED ATRIAL FIBRILLATION (3) CHF exacerbation Assessment/Plan: -Seen by cardiology -acute on chronic CHF unknown type -superimposed cellulitis- started on IV abx -Furosemide 40 mg IV BID -monitor strict I/Os -daily weights -Daily labs -echo pending -Tele monitor Problems reviewed: Yes Code(s): I50.9 - HEART FAILURE, UNSPECIFIED (4) COPD (chronic obstructive pulmonary disease) Assessment/Plan: -Seen by pulmonary -Nasal O2 -Bronchodilators Problems reviewed: Yes Code(s): J44.9 - CHRONIC OBSTRUCTIVE PULMONARY DISEASE, UNSPECIFIED (5) Cellulitis Assessment/Plan: -BLLE -IV abx -ID on board -afebrile -leukocytosis improved -Cultures pending -no LA elevation Problems reviewed: Yes Code(s): L03.90 - CELLULITIS, UNSPECIFIED (6) Hypothyroid Assessment/Plan: -sick thyroid syndrome? -will get endocrine consult Problems reviewed: Yes Code(s): E03.9 - HYPOTHYROIDISM, UNSPECIFIED Assessment/Plan see problem list
[2019-05-26] MEDS: IPRATROPIUM BR 0.02% 0.5 MG/2.5 ML VIAL.NEB. NEB PRN ×2 (18:55→23:08)
[2019-05-26] MEDS: ACETAMINOPHEN 325 MG TABLET (FP) PO PRN (18:57)
--- NOTE | 2019-05-26 19:32 | CONSULT ---
Consult Consult Specialty:: Nephrology Reason for Consultation:: CKD - History of Present Illness Chief Complaint: shortness of breath History of Present Illness: Pt is a 73 year old man with pmhx of a-fib, cad, cva, htn, hld, and copd who presents to the ER with edema and shortness of breath. 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 He denies history of ckd. He did get a ct angio to r/o PE. He complains of bilateral lower ext edema. He is on lasix at home. He denies nsaid use. He denies chest pain or palpitations. He denies fevers or chills. 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 Occupation: Retired-[employer] History of Recent Travel: No Home Medications - Allergies Allergies/Adverse Reactions: Allergies Allergy/AdvReac Type Severity Reaction Status Date / Time lisinopril Allergy Verified 05/25/19 19:15 "all prils" Allergy Uncoded 05/25/19 19:15 - Home Medications Home Medications: Ambulatory Orders Aspirin Coated [Ecotrin -] 81 mg PO DAILY 04/03/19 Atorvastatin Calcium 40 mg PO HS 04/03/19 Carvedilol [Coreg -] 3.125 mg PO BID 04/03/19 Folic Acid - 1 mg PO DAILY 04/03/19 Ipratropium/Albuterol Sulfate [Iprat-Albut 0.5-3(2.5) mg/3 ml] 3 ml IH QID 04/03 Melatonin 3 mg PO HS 04/03/19 Thiamine HCl [B-1] 100 mg PO DAILY 04/03/19 Tamsulosin HCl [Flomax -] 0.4 mg PO HS #30 cap.er.24h 04/09/19 traMADol HCL [Ultram -] 50 mg PO Q6H PRN #90 tablet MDD 200 04/10/19 Furosemide 40 mg PO DAILY 05/25/19 Levothyroxine [Synthroid -] 100 mcg PO DAILY@0700 05/25/19 Metolazone 2.5 mg PO DAILY 05/25/19 Mirtazapine 7.5 mg PO HS 05/25/19 Potassium Chloride 10 meq PO DAILY 05/25/19 Family Medical History Family History: Denies Review of Systems - Review of Systems Constitutional: reports: Malaise Eyes: reports: No Symptoms HENT: reports: No Symptoms Neck: reports: No Symptoms Cardiovascular: reports: Edema. denies: Chest Pain Respiratory: reports: Cough, SOB, SOB on Exertion Genitourinary: reports: No Symptoms Musculoskeletal: reports: No Symptoms Integumentary: reports: No Symptoms Neurological: reports: No Symptoms Endocrine: reports: No Symptoms Hematology/Lymphatic: reports: No Symptoms Psychiatric: reports: No Symptoms Physical Exam Vital Signs: Vital Signs Temperature 98.1 F 05/26/19 14:00 Pulse Rate 127 H 05/26/19 14:00 Respiratory Rate 05/26/19 14:00 Blood Pressure 91/67 05/26/19 14:00 O2 Sat by Pulse Oximetry (%) 93 L 05/26/19 09:00 Constitutional: Yes: Calm Eyes: Yes: Conjunctiva Clear HENT: Yes: Atraumatic Neck: Yes: Supple Cardiovascular: Yes: S1, S2 Respiratory: Yes: CTA Bilaterally, On Nasal O2, Rhonchi Gastrointestinal: Yes: Soft Renal/: Yes: WNL Musculoskeletal: Yes: WNL Edema: Yes Edema: LLE: 2+, RLE: 2+ Neurological: Yes: Oriented Psychiatric: Yes: Oriented Labs: CBC, BMP 05/26/19 06:05 05/26/19 06:05 Laboratory Tests 04/05/19 04/06/19 05/25/19 06:45 06:57 16:48 Creatinine 1.2 1.0 1.5 H 05/26/19 06:05 Creatinine 1.5 H Imaging - Results Cat Scan: Report Reviewed Problem List - Problems (1) SHIMA (acute kidney injury) Code(s): N17.9 - ACUTE KIDNEY FAILURE, UNSPECIFIED (2) CHF exacerbation Code(s): I50.9 - HEART FAILURE, UNSPECIFIED (3) Cellulitis Code(s): L03.90 - CELLULITIS, UNSPECIFIED Assessment/Plan Current Medications Generic Name Dose Route Start Last Admin Trade Name Jacquelyn PRN Reason Stop Dose Admin Acetaminophen 650 mg 05/26/19 18:37 05/26/19 18:57 Tylenol - PO 650 mg Q4H PRN Administration PAIN LEVEL 1-5 Aspirin 81 mg 05/26/19 10:00 05/26/19 11:13 Ecotrin - PO 81 mg DAILY STEVE Administration Atorvastatin Calcium 40 mg 05/26/19 22:00 Lipitor - PO HS STEVE Carvedilol 6.25 mg 05/26/19 13:49 Coreg - PO BID STEVE Folic Acid 1 mg 05/26/19 10:00 05/26/19 11:13 Folic Acid - PO 1 mg DAILY STEVE Administration Furosemide 40 mg 05/26/19 06:00 05/26/19 16:15 Lasix Injection - IVPUSH Not Given BID@0600,1400 STEVE Heparin Sodium (Porcine) 5,000 unit 05/26/19 22:00 Heparin - SQ BID STEVE Cefazolin Sodium 1 gm/ 50 mls @ 100 mls/hr 05/26/19 11:00 05/26/19 11:13 Dextrose IVPB 100 mls/hr Q8H-IV STEVE Administration Ipratropium [place] 1 amp 05/26/19 07:47 Atrovent 0.02% Nebulizer - NEB Q6H PRN WHEEZING Levothyroxine Sodium 100 mcg 05/26/19 07:00 05/26/19 06:19 Synthroid - PO 100 mcg DAILY@0700 STEVE Administration Melatonin 10 mg 05/26/19 22:00 Melatonin PO HS STEVE Mirtazapine 7.5 mg 05/25/19 23:46 05/26/19 00:05 Remeron - PO 7.5 mg HS STEVE Administration Tamsulosin HCl 0.4 mg 05/26/19 08:30 05/26/19 11:13 Flomax - PO 0.4 mg DAILY@0830 STEVE Administration Thiamine HCl 100 mg 05/26/19 10:00 05/26/19 11:13 Vitamin B1 - PO 100 mg DAILY STEVE Administration Impression 1. SHIMA 2. CHF 3. COPD 4. a-fib 5. cad 6. 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
[2019-05-26] MEDS: CARVEDILOL 6.25 MG TABLET (FP) PO SCH (23:04)
[2019-05-26] MEDS: ATORVASTATIN CA 40 MG TABLET (FP) PO SCH (23:05)
[2019-05-26] MEDS: HEPARIN NA (PORCINE) 5,000 UNITS/ML 1ML VIAL SQ SCH (23:05)
[2019-05-26] MEDS: MELATONIN 5 MG TABLETS PO SCH (23:05)
[2019-05-27] MEDS ORDERED: DEXTROSE 5%-WATER - 50 ML IVPB ONE ×3 (05:00→17:43)
[2019-05-27] MEDS ORDERED: ceFAZolin SODIUM 1 GM VIAL ONE ×3 (05:00→17:43)
[2019-05-27] MEDS: CEFAZOLIN 1 GM in DEXTROSE 5%-WATER - 50 ML IVPB SCH ×3 (05:13→18:24)
[2019-05-27 07:01] LABS: HEMOGLOBIN 10.7 GM/dL (11.7-16.9); RBC 3.82 M/mm3 (4.00-5.60); WHITE BLOOD COUNT 8.4 K/mm3 (4.0-10.0)
[2019-05-27 07:02] LABS: BASO % 0.8 % (0-2.0); EOS % 4.8 % (0-4.5); LYMPH % 10.8 % (8-40); MCHC 33.4 g/dl (32.0-35.9); MEAN CELL VOLUME 83.8 fl (80-96); MEAN PLT VOLUME 9.1 fl (7.5-11.1); MONO % 9.8 % (3.8-10.2); NEUT % 73.8 % (42.8-82.8); PLATELET COUNT 156 K/MM3 (134-434); RDW 18.1 % (11.9-15.9)
[2019-05-27 07:04] LABS: BILIRUBIN,TOTAL 1.8 mg/dL (0.2-1); BLOOD UREA NITROGEN 22.8 mg/dL (7-18); CALCIUM 8.7 mg/dL (8.5-10.1); CREATININE 1.4 mg/dL (0.55-1.3); POTASSIUM 3.2 mmol/L (3.5-5.1); TOT PROT 6.2 g/dl (6.4-8.2)
[2019-05-27] MEDS: FUROSEMIDE 40 MG/4 ML INJECTABLE VIAL IVPUSH SCH ×2 (07:05→13:26)
[2019-05-27] MEDS: LEVOTHYROXINE NA 100 MCG TABLET (FP) PO SCH (07:05)
[2019-05-27] MEDS: IPRATROPIUM BR 0.02% 0.5 MG/2.5 ML VIAL.NEB. NEB PRN (07:51)
--- NOTE | 2019-05-27 08:23 | PN ---
Progress Note, Physician - Current Medication List Current Medications: Active Medications Acetaminophen (Tylenol -) 650 mg PO Q4H PRN PRN Reason: PAIN LEVEL 1-5 Last Admin: 05/26/19 18:57 Dose: 650 mg Aspirin (Ecotrin -) 81 mg PO DAILY [facility] Last Admin: 05/26/19 11:13 Dose: 81 mg Atorvastatin Calcium (Lipitor -) 40 mg PO HS [facility] Last Admin: 05/26/19 23:05 Dose: 40 mg Carvedilol (Coreg -) 6.25 mg PO BID [facility] Last Admin: 05/26/19 23:04 Dose: 6.25 mg Folic Acid (Folic Acid -) 1 mg PO DAILY [facility] Last Admin: 05/26/19 11:13 Dose: 1 mg Furosemide (Lasix Injection -) 40 mg IVPUSH BID@0600,1400 [facility] Last Admin: 05/27/19 07:05 Dose: 40 mg Heparin Sodium (Porcine) (Heparin -) 5,000 unit SQ BID [facility] Last Admin: 05/26/19 23:05 Dose: 5,000 unit Cefazolin Sodium 1 gm/ (Dextrose) 50 mls @ 100 mls/hr IVPB Q8H-IV [facility] Last Admin: 05/27/19 05:13 Dose: 100 mls/hr Ipratropium [place] (Atrovent 0.02% Nebulizer -) 1 amp NEB Q6H PRN PRN Reason: WHEEZING Last Admin: 05/27/19 07:51 Dose: 1 amp Levothyroxine Sodium (Synthroid -) 100 mcg PO DAILY@0700 [facility] Last Admin: 05/27/19 07:05 Dose: 100 mcg Melatonin (Melatonin) 10 mg PO [facility] Last Admin: 05/26/19 23:05 Dose: 10 mg Mirtazapine (Remeron -) 7.5 mg PO HS [facility] Last Admin: 05/26/19 23:05 Dose: 7.5 mg Tamsulosin HCl (Flomax -) 0.4 mg PO DAILY@0830 [facility] Last Admin: 05/26/19 11:13 Dose: 0.4 mg Thiamine HCl (Vitamin B1 -) 100 mg PO DAILY [facility] Last Admin: 05/26/19 11:13 Dose: 100 mg - Objective Vital Signs: Vital Signs Temperature 97.4 F L 05/27/19 01:57 Pulse Rate 108 H 05/27/19 05:12 Respiratory Rate 22 H 05/27/19 05:12 Blood Pressure 105/68 05/27/19 05:12 O2 Sat by Pulse Oximetry (%) 81 L 05/26/19 20:24 Labs: CBC, BMP 05/27/19 06:02 05/27/19 06:02 INR, PTT INR 1.22 (0.83-1.09) H 05/25/19 16:48 Assessment/Plan 73 year old man with a pmh of HTN, HLD, COPD on home O2, reported Afib although pt not aware, CAD with h/o stent as per pt 2007 at [facility], chronic b/l LE edema, [place] resident admitted with worsening b/l LE edema, erythema, cellulitis, sob. pt seen and examined today in nad. states he is feeling a little better since admission. states he came to hospital because of his leg swelling. denies any significant change to his chronic sob. no chest pain. no palpitations. no pnd, orthopnea. LE edema-acute on chronic -likely chronic venous insufficiency as well as acute on chronic CHF unknown type -superimposed cellulitis -cont Abx as per ID reccs -cont Lasix IV for now -monitor strict I/Os, daily weights, bun/creat, electrolytes and replete as needed -echo pending -obtain prior records as to details of cardiac history Arrhythmia-reported h/o AFib but pt unaware of this diagnosis and denies ever being on full AC -on admission possible aflutter vs sinus tach -aflutter on tele with mild rvr -cont Coreg 6.25mg bid -Coreg was increased yesterday -Ability to uptitrate bblocker limited by low normal BP -Can uptitrate Coreg further as needed and as BP tolerates -if HR becomes uncontrolled and BP does not tolerate further uptitration of Coreg can use Digoxin -obtain prior records regarding his history of afib and what consideration was made for AC at that time -cont tele monitoring for now SOB -likely multifactorial due to volume overload as above as well as AE COPD -treatment as above.
--- NOTE | 2019-05-27 10:24 | PN ---
Progress Note (short form) - Note Progress Note: legs remain edematous Vital Signs Period Temp Pulse Resp BP Sys/Babb Pulse Ox Last 24 Hr 97.4 F-98.1 F 108-127 20-24 91-105/64-72 81 cor-rrr lungs decreased bs at bases abd-soft, nt ext -+edema. +erythema CBC, BMP 05/27/19 06:02 05/27/19 06:02 Microbiology 05/25/19 17:36 Urine - Urine Clean Catch Urine Culture - Final NO GROWTH OBTAINED 05/25/19 16:48 Blood - Peripheral Venous Blood Culture - Preliminary NO GROWTH OBTAINED AFTER 24 HOURS, INCUBATION TO CONTINUE FOR 4 DAYS. 05/25/19 16:48 Blood - Peripheral Venous Blood Culture - Preliminary NO GROWTH OBTAINED AFTER 24 HOURS, INCUBATION TO CONTINUE FOR 4 DAYS. a/p cellulitis afib with RVR chf shima continue cefazolin Problem List - Problems (1) Cellulitis Code(s): L03.90 - CELLULITIS, UNSPECIFIED (2) Afib Code(s): I48.91 - UNSPECIFIED ATRIAL FIBRILLATION (3) CHF exacerbation Code(s): I50.9 - HEART FAILURE, UNSPECIFIED (4) SHIMA (acute kidney injury) Code(s): N17.9 - ACUTE KIDNEY FAILURE, UNSPECIFIED
--- NOTE | 2019-05-27 11:33 | PN ---
Progress Note (short form) - Note Progress Note: PULMONARY VSS/AFEBRILE Constitutional: Sleeping/easily aroused Eyes: Yes: EOM Intact HENT: Yes: Normocephalic Neck: Yes: Trachea Midline Cardiovascular: Yes: Pulse Irregular, S1, S2 Respiratory: Yes: Diminished Gastrointestinal: Yes: Soft Edema: LLE: 2+, RLE: 2+ Integumentary: Yes: Erythema (b/l lower ext) Labs: reviewed micro: negative thus far Imaging - Results Chest X-ray: Report Reviewed, Image Reviewed Cat Scan: Report Reviewed, Image Reviewed Ultrasound: Report Reviewed Problem List - Problems (1) Afib Code(s): I48.91 - UNSPECIFIED ATRIAL FIBRILLATION (2) CHF exacerbation Code(s): I50.9 - HEART FAILURE, UNSPECIFIED (3) COPD (chronic obstructive pulmonary disease) Code(s): J44.9 - CHRONIC OBSTRUCTIVE PULMONARY DISEASE, UNSPECIFIED (4) Cellulitis Code(s): L03.90 - CELLULITIS, UNSPECIFIED Assessment/Plan VBG SHOWS PCO2 [address] 7[address]32 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
[2019-05-27] MEDS: TAMSULOSIN HCL 0.4 MG CAP PO SCH (11:38)
[2019-05-27] MEDS: ASPIRIN COATED 81 MG TABLET.EC PO SCH (11:38)
[2019-05-27] MEDS: FOLIC ACID 1 MG TABLET (FP) PO SCH (11:39)
[2019-05-27] MEDS: HEPARIN NA (PORCINE) 5,000 UNITS/ML 1ML VIAL SQ SCH ×2 (11:39→21:47)
[2019-05-27] MEDS: CARVEDILOL 6.25 MG TABLET (FP) PO SCH ×3 (11:39→21:51)
[2019-05-27] MEDS: THIAMINE HCL 100 MG TABLET (FP) PO SCH (11:40)
--- NOTE | 2019-05-27 13:47 | CONSULT ---
Consult Consult Specialty:: endocrine Referred by:: wilber antoine np Reason for Consultation:: abnormal tfts - History of Present Illness Chief Complaint: dyspnea and weakness History of Present Illness: 73 y/o man from [facility] with a PMHx of Hypothyroidism,Afib, CAD s/p Stent , CVA, HTN, HLD, COPD (on O2). Who presents to the ED for SOB, bilateral lower extremity edema, erythema and SOB. he had tightness and pain to lower legs x several days. Patient denies chest pain or palpitations. 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: Yes: CVA Cardio/Vascular: Yes: AFIB, CAD, HTN, Hyperlipdemia Pulmonary: Yes: COPD, O2 Dependent Endocrine: Yes: Hypothyroidism - Past Surgical History Past Surgical History: Yes: Joint Replacement, Stent - Alcohol/Substance Use Hx Alcohol Use: Yes - Smoking History Smoking history: Current every day smoker Have you smoked in the past 12 months: No If you are a former smoker, when did you quit?: 1 year - Social History ADL: Support Services Occupation: Retired[employer] History of Recent Travel: No Home Medications - Allergies Allergies/Adverse Reactions: Allergies Allergy/AdvReac Type Severity Reaction Status Date / Time lisinopril Allergy Verified 05/25/19 19:15 "all prils" Allergy Uncoded 05/25/19 19:15 - Home Medications Home Medications: Ambulatory Orders Aspirin Coated [Ecotrin -] 81 mg PO DAILY 04/03/19 Atorvastatin Calcium 40 mg PO HS 04/03/19 Carvedilol [Coreg -] 3.125 mg PO BID 04/03/19 Folic Acid - 1 mg PO DAILY 04/03/19 Ipratropium/Albuterol Sulfate [Iprat-Albut 0.5-3(2.5) mg/3 ml] 3 ml IH QID 04/03 Melatonin 3 mg PO HS 04/03/19 Thiamine HCl [B-1] 100 mg PO DAILY 04/03/19 Tamsulosin HCl [Flomax -] 0.4 mg PO HS #30 cap.er.24h 04/09/19 traMADol HCL [Ultram -] 50 mg PO Q6H PRN #90 tablet MDD 200 04/10/19 Furosemide 40 mg PO DAILY 05/25/19 Levothyroxine [Synthroid -] 100 mcg PO DAILY@0700 05/25/19 Metolazone 2.5 mg PO DAILY 05/25/19 Mirtazapine 7.5 mg PO HS 05/25/19 Potassium Chloride 10 meq PO DAILY 05/25/19 Review of Systems - Review of Systems Constitutional: reports: Lethargy, Weakness Eyes: reports: No Symptoms HENT: reports: No Symptoms Neck: reports: No Symptoms Cardiovascular: reports: Shortness of Breath Respiratory: reports: Exercise Intolerance, SOB on Exertion Gastrointestinal: reports: No Symptoms Genitourinary: reports: No Symptoms Musculoskeletal: reports: Joint Pain, Muscle Weakness Neurological: reports: Weakness Endocrine: reports: No Symptoms Physical Exam Vital Signs: Vital Signs Temperature 97.4 F L 05/27/19 01:57 Pulse Rate 108 H 05/27/19 05:12 Respiratory Rate 22 H 05/27/19 05:12 Blood Pressure 105/68 05/27/19 05:12 O2 Sat by Pulse Oximetry (%) 81 L 05/26/19 20:24 Constitutional: Yes: Calm Eyes: Yes: EOM Intact HENT: Yes: Normocephalic Neck: Yes: Trachea Midline Cardiovascular: Yes: Tachycardia Respiratory: Yes: CTA Bilaterally Gastrointestinal: Yes: Normal Bowel Sounds ...Rectal Exam: Yes: Deferred Renal/: Yes: WNL Breast(s): Yes: WNL Musculoskeletal: Yes: Muscle Pain, Muscle Weakness Extremities: Yes: Erythema Edema: Yes Edema: LLE: Trace, RLE: Trace Neurological: Yes: Alert, Oriented Labs: CBC, BMP 05/27/19 06:02 05/27/19 06:02 Problem List - Problems (1) Jod-Basedow phenomenon Problems reviewed: Yes Code(s): E05.80 - OTHER THYROTOXICOSIS WITHOUT THYROTOXIC CRISIS OR STORM (2) Afib Problems reviewed: Yes Code(s): I48.91 - UNSPECIFIED ATRIAL FIBRILLATION (3) Atrial flutter Problems reviewed: Yes Code(s): I48.92 - UNSPECIFIED ATRIAL FLUTTER (4) COPD (chronic obstructive pulmonary disease) Problems reviewed: Yes Code(s): J44.9 - CHRONIC OBSTRUCTIVE PULMONARY DISEASE, UNSPECIFIED (5) HLD (hyperlipidemia) Code(s): E78.5 - HYPERLIPIDEMIA, UNSPECIFIED (6) HTN (hypertension) Code(s): I10 - ESSENTIAL (PRIMARY) HYPERTENSION Assessment/Plan Current Active Problems Jodbasedow effect SHIMA (acute kidney injury) (Acute) Afib (Acute) Atrial flutter (Acute) CHF exacerbation (Acute) COPD (chronic obstructive pulmonary disease) (Acute) Cellulitis (Acute) HLD (hyperlipidemia) (Acute) HTN (hypertension) (Acute) Jod-Basedow phenomenon (Acute) Pleural effusion (Acute) Laboratory Tests 04/04/19 04/09/19 05/26/19 07:00 07:28 06:05 TSH 15.20 H 4.13 H D Free T4 0.73 L 05/26/19 06:05 TSH Free T4 1.22 H plan; hold synhtroid till free t4 normal then resume synthroid at 50 mcg q am ck tsh free t4 as iodine is cleared
[2019-05-27] MEDS ORDERED: POTASSIUM CHLORIDE ORAL LIQUID 20 MEQ/15 ML PO ONE (14:04)
--- NOTE | 2019-05-27 14:06 | PN ---
Progress Note, Physician Chief Complaint: CHF SOB Atrial flutter History of Present Illness: Lethargic Confused removing mask - Current Medication List Current Medications: Active Medications Acetaminophen (Tylenol -) 650 mg PO Q4H PRN PRN Reason: PAIN LEVEL 1-5 Last Admin: 05/26/19 18:57 Dose: 650 mg Aspirin (Ecotrin -) 81 mg PO DAILY [facility] Last Admin: 05/27/19 11:38 Dose: 81 mg Atorvastatin Calcium (Lipitor -) 40 mg PO HS [facility] Last Admin: 05/26/19 23:05 Dose: 40 mg Carvedilol (Coreg -) 6.25 mg PO BID [facility] Last Admin: 05/27/19 11:39 Dose: 6.25 mg Folic Acid (Folic Acid -) 1 mg PO DAILY [facility] Last Admin: 05/27/19 11:39 Dose: 1 mg Furosemide (Lasix Injection -) 40 mg IVPUSH BID@0600,1400 [facility] Last Admin: 05/27/19 13:26 Dose: 40 mg Heparin Sodium (Porcine) (Heparin -) 5,000 unit SQ BID [facility] Last Admin: 05/27/19 11:39 Dose: 5,000 unit Cefazolin Sodium 1 gm/ (Dextrose) 50 mls @ 100 mls/hr IVPB Q8H-IV [facility] Last Admin: 05/27/19 11:39 Dose: 100 mls/hr Ipratropium Kaplan (Atrovent 0.02% Nebulizer -) 1 amp NEB Q6H PRN PRN Reason: WHEEZING Last Admin: 05/27/19 07:51 Dose: 1 amp Levothyroxine Sodium (Synthroid -) 100 mcg PO DAILY@0700 [facility] Last Admin: 05/27/19 07:05 Dose: 100 mcg Melatonin (Melatonin) 10 mg PO [facility] Last Admin: 05/26/19 23:05 Dose: 10 mg Mirtazapine (Remeron -) 7.5 mg PO [facility] Last Admin: 05/26/19 23:05 Dose: 7.5 mg Tamsulosin HCl (Flomax -) 0.4 mg PO DAILY@0830 [facility] Last Admin: 05/27/19 11:38 Dose: 0.4 mg Thiamine HCl (Vitamin B1 -) 100 mg PO DAILY [facility] Last Admin: 05/27/19 11:40 Dose: 100 mg - Objective Vital Signs: Vital Signs Temperature 97.4 F L 05/27/19 01:57 Pulse Rate 108 H 05/27/19 05:12 Respiratory Rate 22 H 05/27/19 05:12 Blood Pressure 105/68 05/27/19 05:12 O2 Sat by Pulse Oximetry (%) 81 L 05/26/19 20:24 Constitutional: Yes: Well Nourished, No Distress, Other (agitated) Cardiovascular: Yes: Tachycardia, Pulse Irregular Respiratory: Yes: Regular, On Venti-Mask Gastrointestinal: Yes: Normal Bowel Sounds, Soft Genitourinary: Yes: Incontinence Musculoskeletal: Yes: Muscle Weakness Extremities: Yes: WNL Edema: Yes Edema: LLE: Trace, RLE: Trace Peripheral Pulses WNL: Yes Neurological: Yes: Alert, Confusion, Lethargy Psychiatric: Yes: Alert, Agitated Labs: CBC, BMP 05/27/19 06:02 05/27/19 06:02 INR, PTT INR 1.22 (0.83-1.09) H 05/25/19 16:48 Problem List - Problems (1) SHIMA (acute kidney injury) Assessment/Plan: -Nephrology consult -monitor Cr trend Problems reviewed: Yes Code(s): N17.9 - ACUTE KIDNEY FAILURE, UNSPECIFIED (2) Afib Assessment/Plan: -chronic? -Continue Carvedilol 6.25 mg po BID -Await echo to determine any valvular involvement -Tele monitor Problems reviewed: Yes Code(s): I48.91 - UNSPECIFIED ATRIAL FIBRILLATION (3) CHF exacerbation Assessment/Plan: -Seen by cardiology -acute on chronic CHF unknown type -superimposed cellulitis- started on IV abx -Furosemide 40 mg IV BID -monitor strict I/Os -daily weights -Daily labs -echo pending -Tele monitor Problems reviewed: Yes Code(s): I50.9 - HEART FAILURE, UNSPECIFIED (4) COPD (chronic obstructive pulmonary disease) Assessment/Plan: -Seen by pulmonary -O2 to keep SpO2>90% -Bronchodilators Problems reviewed: Yes Code(s): J44.9 - CHRONIC OBSTRUCTIVE PULMONARY DISEASE, UNSPECIFIED (5) Cellulitis Assessment/Plan: -BLLE -IV abx -ID on board -afebrile -leukocytosis improved -Cultures pending -no LA elevation Problems reviewed: Yes Code(s): L03.90 - CELLULITIS, UNSPECIFIED (6) Hypothyroid Assessment/Plan: -Hold levothyroxine -Restart as per endocrinology Problems reviewed: Yes Code(s): E03.9 - HYPOTHYROIDISM, UNSPECIFIED Assessment/Plan see problem list
[2019-05-27] MEDS: LEVALBUTEROL HCL 0.63 MG/3 ML VIAL.NEB. IH SCH ×2 (16:18→20:10)
[2019-05-27] MEDS ORDERED: POTASSIUM CHLORIDE TABS 20 MEQ TABLET.ER (FP) PO ONE (19:30)
--- NOTE | 2019-05-27 19:33 | PN ---
Progress Note, Physician History of Present Illness: Pt seen and examined at bedside. He feels that his breathing is a little better today. - Current Medication List Current Medications: Active Medications Acetaminophen (Tylenol -) 650 mg PO Q4H PRN PRN Reason: PAIN LEVEL 1-5 Last Admin: 05/26/19 18:57 Dose: 650 mg Aspirin (Ecotrin -) 81 mg PO DAILY [facility] Last Admin: 05/27/19 11:38 Dose: 81 mg Atorvastatin Calcium (Lipitor -) 40 mg PO HS [facility] Last Admin: 05/26/19 23:05 Dose: 40 mg Carvedilol (Coreg -) 6.25 mg PO BID [facility] Last Admin: 05/27/19 11:39 Dose: 6.25 mg Folic Acid (Folic Acid -) 1 mg PO DAILY [facility] Last Admin: 05/27/19 11:39 Dose: 1 mg Furosemide (Lasix Injection -) 40 mg IVPUSH BID@0600,1400 [facility] Last Admin: 05/27/19 13:26 Dose: 40 mg Heparin Sodium (Porcine) (Heparin -) 5,000 unit SQ BID [facility] Last Admin: 05/27/19 11:39 Dose: 5,000 unit Cefazolin Sodium 1 gm/ (Dextrose) 50 mls @ 100 mls/hr IVPB Q8H-IV [facility] Last Admin: 05/27/19 18:24 Dose: 100 mls/hr Levalbuterol HCl (Xopenex) 0.63 mg IH RTID [facility] Last Admin: 05/27/19 16:18 Dose: 0.63 mg Melatonin (Melatonin) 10 mg PO [facility] Last Admin: 05/26/19 23:05 Dose: 10 mg Mirtazapine (Remeron -) 7.5 mg PO HS [facility] Last Admin: 05/26/19 23:05 Dose: 7.5 mg Potassium Chloride (Potassium Chloride Oral Liquid) 40 meq PO DAILY [facility] Potassium Chloride (K-Dur -) 20 meq PO ONCE ONE Stop: 05/27/19 19:31 Tamsulosin HCl (Flomax -) 0.4 mg PO DAILY@0830 [facility] Last Admin: 05/27/19 11:38 Dose: 0.4 mg Thiamine HCl (Vitamin B1 -) 100 mg PO DAILY [facility] Last Admin: 05/27/19 11:40 Dose: 100 mg - Objective Vital Signs: Vital Signs Temperature 98 F 05/27/19 14:05 Pulse Rate 116 H 05/27/19 14:05 Respiratory Rate 20 05/27/19 15:00 Blood Pressure 91/56 L 05/27/19 14:05 O2 Sat by Pulse Oximetry (%) 93 L 05/27/19 15:00 Constitutional: Yes: Calm Eyes: Yes: Conjunctiva Clear HENT: Yes: Atraumatic Neck: Yes: Supple Cardiovascular: Yes: S1, S2 Respiratory: Yes: On Nasal O2, Wheezes Gastrointestinal: Yes: Normal Bowel Sounds, Soft Genitourinary: Yes: WNL Musculoskeletal: Yes: WNL Edema: Yes Edema: LLE: 2+, RLE: 2+ Neurological: Yes: Oriented Psychiatric: Yes: Oriented Labs: CBC, BMP 05/27/19 06:02 05/27/19 06:02 INR, PTT INR 1.22 (0.83-1.09) H 05/25/19 16:48 Problem List - Problems (1) SHIMA (acute kidney injury) Code(s): N17.9 - ACUTE KIDNEY FAILURE, UNSPECIFIED (2) CHF exacerbation Code(s): I50.9 - HEART FAILURE, UNSPECIFIED (3) Cellulitis Code(s): L03.90 - CELLULITIS, UNSPECIFIED Assessment/Plan Current Medica Current Medications Generic Name Dose Route Start Last Admin Trade Name Freq PRN Reason Stop Dose Admin Acetaminophen 650 mg 05/26/19 18:37 05/26/19 18:57 Tylenol - PO 650 mg Q4H PRN Administration PAIN LEVEL 1-5 Aspirin 81 mg 05/26/19 10:00 05/27/19 11:38 Ecotrin - PO 81 mg DAILY STEVE Administration Atorvastatin Calcium 40 mg 05/26/19 22:00 05/26/19 23:05 Lipitor - PO 40 mg HS STEVE Administration Carvedilol 6.25 mg 05/26/19 13:49 05/27/19 11:39 Coreg - PO 6.25 mg BID STEVE Administration Folic Acid 1 mg 05/26/19 10:00 05/27/19 11:39 Folic Acid - PO 1 mg DAILY STEVE Administration Furosemide 40 mg 05/26/19 06:00 05/27/19 13:26 Lasix Injection - IVPUSH 40 mg BID@0600,1400 STEVE Administration Heparin Sodium (Porcine) 5,000 unit 05/26/19 22:00 05/27/19 11:39 Heparin - SQ 5,000 unit BID STEVE Administration Cefazolin Sodium 1 gm/ 50 mls @ 100 mls/hr 05/26/19 11:00 05/27/19 18:24 Dextrose IVPB 100 mls/hr Q8H-IV STEVE Administration Levalbuterol HCl 0.63 mg 05/27/19 16:15 05/27/19 16:18 Xopenex IH 0.63 mg RTID STEVE Administration Melatonin 10 mg 05/26/19 22:00 05/26/19 23:05 Melatonin PO 10 mg HS STEVE Administration Mirtazapine 7.5 mg 05/25/19 23:46 05/26/19 23:05 Remeron - PO 7.5 mg HS STEVE Administration Potassium Chloride 40 meq 05/28/19 10:00 Potassium Chloride Oral Liquid PO DAILY STEVE Potassium Chloride 20 meq 05/27/19 19:30 K-Dur - PO 05/27/19 19:31 ONCE ONE Tamsulosin HCl 0.4 mg 05/26/19 08:30 05/27/19 11:38 Flomax - PO 0.4 mg DAILY@0830 STEVE Administration Thiamine HCl 100 mg 05/26/19 10:00 05/27/19 11:40 Vitamin B1 - PO 100 mg DAILY STEVE Administration Laboratory Tests 05/25/19 17:36 Urine Protein Negative Urine Blood Negative Impression 1. SHIMA 2. CHF 3. COPD 4. a-fib 5. cad 6. cva 7. hypokalemia Plan - renal function is improving - cont lasix - replace potassium - repeat labs in am - renal ultrasound reviewed - ua neg for blood or protein
[2019-05-27] MEDS: MIRTAZAPINE 15 MG TABLET (FP) PO SCH (21:46)
[2019-05-27] MEDS: MELATONIN 5 MG TABLETS PO SCH (21:46)
[2019-05-27] MEDS: ATORVASTATIN CA 40 MG TABLET (FP) PO SCH (21:47)
[2019-05-27] MEDS ORDERED: ALPRAZolam 1 MG TABLET PO PRN (23:57)
[2019-05-28] MEDS ORDERED: ALBUTEROL SO4 2.5/IPRATROPIUM 0.5 INH SOL 3 ML VIAL.NEB. NEB ONE (01:17)
[2019-05-28 01:59] LABS: ARTERIAL BLD GAS O2 SATURATION 71.4 % (95-98); ARTERIAL BLOOD GAS BASE EXCESS 13.4 meq/l (-2-2); ARTERIAL BLOOD GAS pH 7.38 (7.35-7.45)
[2019-05-28 02:04] LABS: ALLENS TEST POSITIVE; ARTERIAL BLOOD GAS PO2 < 49 mmHg (80-100)
[2019-05-28] MEDS ORDERED: SIMETHICONE 80 MG TAB.CHEW (FP) PO PRN (02:18)
[2019-05-28] MEDS ORDERED: ceFAZolin SODIUM 1 GM VIAL ONE ×3 (02:23→17:53)
[2019-05-28] MEDS ORDERED: DEXTROSE 5%-WATER - 50 ML IVPB ONE ×3 (02:24→17:54)
[2019-05-28] MEDS: CEFAZOLIN 1 GM in DEXTROSE 5%-WATER - 50 ML IVPB SCH ×3 (02:34→18:24)
[2019-05-28 02:36] LABS: ARTERIAL BLD GAS O2 SATURATION 87.4 % (95-98); ARTERIAL BLOOD GAS BASE EXCESS 12.7 meq/l (-2-2); ARTERIAL BLOOD GAS PCO2 67.6 mmHg (35-45); ARTERIAL BLOOD GAS PO2 59.8 mmHg (80-100); ARTERIAL BLOOD GAS pH 7.39 (7.35-7.45)
[2019-05-28 02:37] LABS: ALLENS TEST POSITIVE
[2019-05-28] MEDS: FUROSEMIDE 40 MG/4 ML INJECTABLE VIAL IVPUSH SCH ×2 (05:58→12:49)
[2019-05-28 07:55] LABS: BASO % 0.7 % (0-2.0); EOS % 4.6 % (0-4.5); HEMATOCRIT 33.6 % (35.4-49); MCH 28.2 pg (25.7-33.7); MCHC 32.9 g/dl (32.0-35.9); MEAN CELL VOLUME 85.7 fl (80-96); MEAN PLT VOLUME 9.5 fl (7.5-11.1); MONO % 10.3 % (3.8-10.2); NEUT % 73.4 % (42.8-82.8); PLATELET COUNT 174 K/MM3 (134-434); RBC 3.92 M/mm3 (4.00-5.60); RDW 17.7 % (11.9-15.9); WHITE BLOOD COUNT 10.7 K/mm3 (4.0-10.0)
--- NOTE | 2019-05-28 08:00 | DS ---
Physical Examination Vital Signs: Vital Signs Temperature 97.6 F 05/28/19 06:15 Pulse Rate 118 H 05/28/19 06:15 Respiratory Rate 20 05/28/19 06:15 Blood Pressure 119/71 05/28/19 06:15 O2 Sat by Pulse Oximetry (%) 92 L 05/27/19 20:55 Findings/Remarks: PATIENT IIS DNR/DNI TELLING NURSING STAFF HE WANTS TO AND DOESN'T WANT ANYMORE CARE. PALLIATIVE CARE NURSE CONSULT CALLED Constitutional: Yes: Mild Distress Cardiovascular: Yes: Pulse Irregular Respiratory: Yes: On Venti-Mask Gastrointestinal: Yes: Soft Renal/: Yes: Incontinence Musculoskeletal: Yes: Muscle Weakness Integumentary: Yes: Pressure Ulcer, Rash, Venous Stasis Changes Wound/Incision: Yes: Open to air Neurological: Yes: Pre-Existing Deficit ...Motor Strength: LLE, RLE Psychiatric: Yes: Alert Discharge Summary Problems reviewed: Yes Reason For Visit: BILATERAL CELLULITIS OF LOWER LEG Current Active Problems SHIMA (acute kidney injury) (Acute) Afib (Acute) Atrial flutter (Acute) CHF exacerbation (Acute) COPD (chronic obstructive pulmonary disease) (Acute) Cellulitis (Acute) HLD (hyperlipidemia) (Acute) HTN (hypertension) (Acute) Hypothyroid (Acute) Jod-Basedow phenomenon (Acute) New onset of congestive heart failure (Acute) Pleural effusion (Acute) Condition: Guarded - Instructions Referrals: Frantz Elam MD [Primary Care Provider] - - Home Medications Comprehensive Discharge Medication List: Ambulatory Orders Aspirin Coated [Ecotrin -] 81 mg PO DAILY 04/03/19 Atorvastatin Calcium 40 mg PO HS 04/03/19 Carvedilol [Coreg -] 3.125 mg PO BID 04/03/19 Folic Acid - 1 mg PO DAILY 04/03/19 Ipratropium/Albuterol Sulfate [Iprat-Albut 0.5-3(2.5) mg/3 ml] 3 ml IH QID 04/03 Melatonin 3 mg PO HS 04/03/19 Thiamine HCl [B-1] 100 mg PO DAILY 04/03/19 Tamsulosin HCl [Flomax -] 0.4 mg PO HS #30 cap.er.24h 04/09/19 traMADol HCL [Ultram -] 50 mg PO Q6H PRN #90 tablet MDD 200 04/10/19 Furosemide 40 mg PO DAILY 05/25/19 Levothyroxine [Synthroid -] 100 mcg PO DAILY@0700 05/25/19 Metolazone 2.5 mg PO DAILY 05/25/19 Mirtazapine 7.5 mg PO HS 05/25/19 Potassium Chloride 10 meq PO DAILY 05/25/19
[2019-05-28] MEDS: LEVALBUTEROL HCL 0.63 MG/3 ML VIAL.NEB. IH SCH ×3 (08:17→20:39)
[2019-05-28 08:28] LABS: ALBUMIN 3.2 g/dl (3.4-5.0); BILIRUBIN,TOTAL 1.5 mg/dL (0.2-1); BLOOD UREA NITROGEN 19.3 mg/dL (7-18); CALCIUM 8.6 mg/dL (8.5-10.1); CREATININE 1.3 mg/dL (0.55-1.3); POTASSIUM 3.9 mmol/L (3.5-5.1); TOT PROT 6.8 g/dl (6.4-8.2)
[2019-05-28] MEDS: POTASSIUM CHLORIDE ORAL LIQUID 20 MEQ/15 ML PO SCH (10:30)
[2019-05-28] MEDS: HEPARIN NA (PORCINE) 5,000 UNITS/ML 1ML VIAL SQ SCH ×2 (10:30→21:02)
--- NOTE | 2019-05-28 10:53 | PN ---
Progress Note, Physician History of Present Illness: pulmonary drowsy on o2,vm 50% ,-resp distress - Current Medication List Current Medications: Active Medications Acetaminophen (Tylenol -) 650 mg PO Q4H PRN PRN Reason: PAIN LEVEL 1-5 Last Admin: 05/26/19 18:57 Dose: 650 mg Aspirin (Ecotrin -) 81 mg PO DAILY [facility] Last Admin: 05/27/19 11:38 Dose: 81 mg Atorvastatin Calcium (Lipitor -) 40 mg PO HS [facility] Last Admin: 05/27/19 21:47 Dose: 40 mg Bacitracin (Bacitracin -) 1 applic TP DAILY [facility] Carvedilol (Coreg -) 6.25 mg PO BID [facility] Last Admin: 05/27/19 21:51 Dose: Not Given Folic Acid (Folic Acid -) 1 mg PO DAILY [facility] Last Admin: 05/27/19 11:39 Dose: 1 mg Furosemide (Lasix Injection -) 40 mg IVPUSH BID@0600,1400 [facility] Last Admin: 05/28/19 05:58 Dose: 40 mg Heparin Sodium (Porcine) (Heparin -) 5,000 unit SQ BID [facility] Last Admin: 05/27/19 21:47 Dose: 5,000 unit Cefazolin Sodium 1 gm/ (Dextrose) 50 mls @ 100 mls/hr IVPB Q8H-IV [facility] Last Admin: 05/28/19 02:34 Dose: 100 mls/hr Levalbuterol HCl (Xopenex) 0.63 mg IH RTID [facility] Last Admin: 05/28/19 08:17 Dose: 0.63 mg Melatonin (Melatonin) 10 mg PO HS [facility] Last Admin: 05/27/19 21:46 Dose: 10 mg Mirtazapine (Remeron -) 7.5 mg PO HS [facility] Last Admin: 05/27/19 21:46 Dose: 7.5 mg Potassium Chloride (Potassium Chloride Oral Liquid) 40 meq PO DAILY [facility] Simethicone (Mylicon -) 80 mg PO Q4H PRN PRN Reason: GAS Tamsulosin HCl (Flomax -) 0.4 mg PO DAILY@0830 [facility] Last Admin: 05/27/19 11:38 Dose: 0.4 mg Thiamine HCl (Vitamin B1 -) 100 mg PO DAILY [facility] Last Admin: 05/27/19 11:40 Dose: 100 mg - Objective Vital Signs: Vital Signs Temperature 97.6 F 05/28/19 06:15 Pulse Rate 118 H 05/28/19 06:15 Respiratory Rate 20 05/28/19 06:15 Blood Pressure 119/71 05/28/19 06:15 O2 Sat by Pulse Oximetry (%) 92 L 05/27/19 20:55 Constitutional: Yes: Well Nourished, Calm Eyes: Yes: WNL HENT: Yes: WNL Neck: Yes: WNL Cardiovascular: Yes: Pulse Irregular, S1, S2 Respiratory: Yes: Rales (bret rales,few scattered rhonchi) Gastrointestinal: Yes: Normal Bowel Sounds, Soft Extremities: Yes: WNL Edema: No Labs: CBC, BMP 05/28/19 06:20 05/28/19 06:20 INR, PTT INR 1.22 (0.83-1.09) H 05/25/19 16:48 Laboratory Tests 05/28/19 02:30 ABG pH 7.39 ABG pCO2 at Pt Temp 67.6 H ABG pO2 at Pt Temp 59.8 L ABG HCO3 39.8 H ABG O2 Sat (Measured) 87.4 L O2 Delivery Device Venti Oxygen Flow Rate 50% - ....Imaging Chest X-ray: Report Reviewed, Image Reviewed (increased congestion) Problem List - Problems (1) Acute on chronic respiratory failure with hypoxia and hypercapnia Code(s): J96.21 - ACUTE AND CHRONIC RESPIRATORY FAILURE WITH HYPOXIA; J96.22 - ACUTE AND CHRONIC RESPIRATORY FAILURE WITH HYPERCAPNIA (2) HLD (hyperlipidemia) Code(s): E78.5 - HYPERLIPIDEMIA, UNSPECIFIED (3) HTN (hypertension) Code(s): I10 - ESSENTIAL (PRIMARY) HYPERTENSION Assessment/Plan Problem List - Problems (1) Afib Code(s): I48.91 - UNSPECIFIED ATRIAL FIBRILLATION (2) CHF exacerbation Code(s): I50.9 - HEART FAILURE, UNSPECIFIED (3) COPD (chronic obstructive pulmonary disease) Code(s): J44.9 - CHRONIC OBSTRUCTIVE PULMONARY DISEASE, UNSPECIFIED (4) Cellulitis Code(s): L03.90 - CELLULITIS, UNSPECIFIED Assessment/Plan VBG SHOWS PCO2 [address] 7.32 LIKELY CHRONIC CO2 RETAINER(COPD) COPD AND PL EFFUSION ON CXR/NO PE TREATMENT FOR CELLULITIS CONTINUE O2 BRONCHODILATORS CONSIDER NIPPV TO IMPROVE VENTILATION LASIX F/U CHEST X-RAYS DR MCMILLAN Problem List - Problems (1) Afib Code(s): I48.91 - UNSPECIFIED ATRIAL FIBRILLATION (2) CHF exacerbation Code(s): I50.9 - HEART FAILURE, UNSPECIFIED (3) COPD (chronic obstructive pulmonary disease) Code(s): J44.9 - CHRONIC OBSTRUCTIVE PULMONARY DISEASE, UNSPECIFIED (4) Cellulitis Code(s): L03.90 - CELLULITIS, UNSPECIFIED
--- NOTE | 2019-05-28 13:22 | PN ---
Progress Note, Physician Chief Complaint: SOB History of Present Illness: This is a 73 year old male NHR with a PMH of HTN, HLD, COPD on home O2, and past AFIB. He has know CAD with a past stent in 2007 at [facility]. He is known to have chronic bilateral LE edema. He was admitted from the [facility] to [facility] with worsening b/l LE edema, erythema, cellulitis, and SOB. 05/28/2019 HR still elevated (HR 118) and still with SOB. LE edema-acute on chronic -likely chronic venous insufficiency as well as acute on chronic CHF unknown type -superimposed cellulitis -cont Abx as per ID reccs -cont Lasix IV for now -monitor strict I/Os, daily weights, bun/creat, electrolytes and replete as needed -echo pending -obtain prior records as to details of cardiac history Arrhythmia-reported h/o AFib but pt unaware of this diagnosis and denies ever being on full AC -on admission possible aflutter vs sinus tach -aflutter on tele with mild rvr -cont Coreg 6.25mg bid -Coreg was increased yesterday -Ability to uptitrate bblocker limited by low normal BP -Can uptitrate Coreg further as needed and as BP tolerates -if HR becomes uncontrolled and BP does not tolerate further uptitration of Coreg can use Digoxin -obtain prior records regarding his history of afib and what consideration was made for AC at that time -cont tele monitoring for now SOB -likely multifactorial due to volume overload as above as well as AE COPD -treatment as above. - Current Medication List Current Medications: Active Medications Acetaminophen (Tylenol -) 650 mg PO Q4H PRN PRN Reason: PAIN LEVEL 1-5 Last Admin: 05/26/19 18:57 Dose: 650 mg Aspirin (Ecotrin -) 81 mg PO DAILY [facility] Last Admin: 05/27/19 11:38 Dose: 81 mg Atorvastatin Calcium (Lipitor -) 40 mg PO HS [facility] Last Admin: 05/27/19 21:47 Dose: 40 mg Bacitracin (Bacitracin -) 1 applic TP DAILY [facility] Carvedilol (Coreg -) 6.25 mg PO BID [facility] Last Admin: 05/27/19 21:51 Dose: Not Given Folic Acid (Folic Acid -) 1 mg PO DAILY [facility] Last Admin: 05/27/19 11:39 Dose: 1 mg Furosemide (Lasix Injection -) 40 mg IVPUSH BID@0600,1400 [facility] Last Admin: 05/28/19 12:49 Dose: 40 mg Heparin Sodium (Porcine) (Heparin -) 5,000 unit SQ BID [facility] Last Admin: 05/27/19 21:47 Dose: 5,000 unit Cefazolin Sodium 1 gm/ (Dextrose) 50 mls @ 100 mls/hr IVPB Q8H-IV [facility] Last Admin: 05/28/19 02:34 Dose: 100 mls/hr Levalbuterol HCl (Xopenex) 0.63 mg IH RTID [facility] Last Admin: 05/28/19 08:17 Dose: 0.63 mg Melatonin (Melatonin) 10 mg PO HS [facility] Last Admin: 05/27/19 21:46 Dose: 10 mg Mirtazapine (Remeron -) 7.5 mg PO HS [facility] Last Admin: 05/27/19 21:46 Dose: 7.5 mg Potassium Chloride (Potassium Chloride Oral Liquid) 40 meq PO DAILY [facility] Simethicone (Mylicon -) 80 mg PO Q4H PRN PRN Reason: GAS Tamsulosin HCl (Flomax -) 0.4 mg PO DAILY@0830 [facility] Last Admin: 05/27/19 11:38 Dose: 0.4 mg Thiamine HCl (Vitamin B1 -) 100 mg PO DAILY [facility] Last Admin: 05/27/19 11:40 Dose: 100 mg - Objective Vital Signs: Vital Signs Temperature 97.6 F 05/28/19 06:15 Pulse Rate 118 H 05/28/19 06:15 Respiratory Rate 20 05/28/19 06:15 Blood Pressure 119/71 05/28/19 06:15 O2 Sat by Pulse Oximetry (%) 92 L 05/27/19 20:55 Constitutional: Yes: Mild Distress Eyes: Yes: WNL HENT: Yes: WNL Neck: Yes: WNL Cardiovascular: Yes: Pulse Irregular, S1, S2 Respiratory: Yes: Rales (Scattered bilateral) Gastrointestinal: Yes: Soft Edema: Yes (Bilateral LE) Labs: CBC, BMP 05/28/19 06:20 05/28/19 06:20 INR, PTT INR 1.22 (0.83-1.09) H 05/25/19 16:48 Assessment/Plan 73 year old male NHR with a PMH of HTN, HLD, COPD on home O2, and past AFIB. He has know CAD with a past stent in 2007 at [facility]. He is known to have chronic bilateral LE edema. He was admitted from the [place] to [facility] with worsening b/l LE edema, erythema, cellulitis, and SOB. 05/28/2019 HR still elevated (HR 118) and still with SOB. LE edema-acute on chronic -likely chronic venous insufficiency as well as acute on chronic CHF unknown type -superimposed cellulitis -cont Abx as per ID reccs -cont Furosemide (Lasix Injection -) 40 mg IVPUSH BID -monitor strict I/Os, daily weights, bun/creat, electrolytes and replete as needed -echo pending -obtain prior records as to details of cardiac history Arrhythmia-reported h/o AFib but pt unaware of this diagnosis and denies ever being on full AC -Noted on Telem and EKG to have atrial flutter, no AC for now until more PMH can be obtained (was he intolerant to AC prior?) -cont Coreg 6.25mg bid -If HR's are still elevated, increase COREG to 12.5 mg PO BID, if BP tolerates -Ability to uptitrate bblocker limited by low normal BP -Consider Digoxin if BP too low to uptitrate COREG SOB -likely multifactorial due to volume overload as above as well as COPD -Conitnue current therapy
--- NOTE | 2019-05-28 16:10 | PN ---
Progress Note, Physician Chief Complaint: ASLEEP, LETHARGIC ON BIPAP FOR 02 SUPPORT EVENTS AND NOTES REVIEWED PATIENT REFUSING CARE DOES NOT WANT ANY MEDICAL INTERVENTIONS - Current Medication List Current Medications: Active Medications Acetaminophen (Tylenol -) 650 mg PO Q4H PRN PRN Reason: PAIN LEVEL 1-5 Last Admin: 05/26/19 18:57 Dose: 650 mg Aspirin (Ecotrin -) 81 mg PO DAILY [facility] Last Admin: 05/27/19 11:38 Dose: 81 mg Atorvastatin Calcium (Lipitor -) 40 mg PO HS [facility] Last Admin: 05/27/19 21:47 Dose: 40 mg Bacitracin (Bacitracin -) 1 applic TP DAILY [facility] Carvedilol (Coreg -) 6.25 mg PO BID [facility] Last Admin: 05/27/19 21:51 Dose: Not Given Folic Acid (Folic Acid -) 1 mg PO DAILY [facility] Last Admin: 05/27/19 11:39 Dose: 1 mg Furosemide (Lasix Injection -) 40 mg IVPUSH BID@0600,1400 [facility] Last Admin: 05/28/19 12:49 Dose: 40 mg Heparin Sodium (Porcine) (Heparin -) 5,000 unit SQ BID [facility] Last Admin: 05/27/19 21:47 Dose: 5,000 unit Cefazolin Sodium 1 gm/ (Dextrose) 50 mls @ 100 mls/hr IVPB Q8H-IV [facility] Last Admin: 05/28/19 02:34 Dose: 100 mls/hr Levalbuterol HCl (Xopenex) 0.63 mg IH RTID [facility] Last Admin: 05/28/19 08:17 Dose: 0.63 mg Melatonin (Melatonin) 10 mg PO HS [facility] Last Admin: 05/27/19 21:46 Dose: 10 mg Mirtazapine (Remeron -) 7.5 mg PO HS [facility] Last Admin: 05/27/19 21:46 Dose: 7.5 mg Potassium Chloride (Potassium Chloride Oral Liquid) 40 meq PO DAILY [facility] Simethicone (Mylicon -) 80 mg PO Q4H PRN PRN Reason: GAS Tamsulosin HCl (Flomax -) 0.4 mg PO DAILY@0830 [facility] Last Admin: 05/27/19 11:38 Dose: 0.4 mg Thiamine HCl (Vitamin B1 -) 100 mg PO DAILY [facility] Last Admin: 05/27/19 11:40 Dose: 100 mg - Objective Vital Signs: Vital Signs Temperature 98 F 05/28/19 14:15 Pulse Rate 122 H 05/28/19 14:15 Respiratory Rate 22 H 05/28/19 14:15 Blood Pressure 99/69 05/28/19 14:15 O2 Sat by Pulse Oximetry (%) 92 L 05/27/19 20:55 Constitutional: Yes: Moderate Distress Cardiovascular: Yes: Regular Rate and Rhythm, Tachycardia Respiratory: Yes: On BiPap, Wheezes Gastrointestinal: Yes: Soft, Abdomen, Obese Genitourinary: Yes: Incontinence Musculoskeletal: Yes: Muscle Weakness Edema: Yes Integumentary: Yes: Erythema, Pressure Ulcer, Rash, Venous Stasis Changes Wound/Incision: Yes: Open to air Neurological: Yes: Pre-Existing Deficit ...Motor Strength: LLE, RLE Psychiatric: Yes: Agitated Labs: CBC, BMP 05/28/19 06:20 05/28/19 06:20 INR, PTT INR 1.22 (0.83-1.09) H 05/25/19 16:48 Problem List - Problems (1) SHIMA (acute kidney injury) Code(s): N17.9 - ACUTE KIDNEY FAILURE, UNSPECIFIED (2) Acute on chronic respiratory failure with hypoxia and hypercapnia Code(s): J96.21 - ACUTE AND CHRONIC RESPIRATORY FAILURE WITH HYPOXIA; J96.22 - ACUTE AND CHRONIC RESPIRATORY FAILURE WITH HYPERCAPNIA (3) Afib Code(s): I48.91 - UNSPECIFIED ATRIAL FIBRILLATION (4) CHF exacerbation Code(s): I50.9 - HEART FAILURE, UNSPECIFIED (5) COPD (chronic obstructive pulmonary disease) Code(s): J44.9 - CHRONIC OBSTRUCTIVE PULMONARY DISEASE, UNSPECIFIED (6) Cellulitis Code(s): L03.90 - CELLULITIS, UNSPECIFIED (7) HLD (hyperlipidemia) Code(s): E78.5 - HYPERLIPIDEMIA, UNSPECIFIED (8) Hypothyroid Code(s): E03.9 - HYPOTHYROIDISM, UNSPECIFIED (9) Pleural effusion Code(s): J90 - PLEURAL EFFUSION, NOT ELSEWHERE CLASSIFIED Assessment/Plan ON BIPAP FOR RESPIRATORY SUPPORT CONTINUE FOR NOW I CALLED PSYCHIATRY FOR EVAL AND ASSESS PATIENT'S ABILITY TO MAKE DECISIONS. I ALSO ASKED SHANNON FROM PALLIATIVE CARE FOR A CONSULT AND TO SPEAK WITH THE PATIENT'S FAMILY ABOUT ADVANCED DIRECTIVES. ON IV ABX IV LASIX FOR DIURESIS 02 SUPPORT WOUND CARE TO ULCERS ON LEGS BACITRACIN ORDERED DVT PROPHYLAXIS PATIENT IS DNR/DNI
--- NOTE | 2019-05-28 17:08 | PN ---
Progress Note, Physician History of Present Illness: Pt seen and examined at bedside. He is now on bipap. - Current Medication List Current Medications: Active Medications Acetaminophen (Tylenol -) 650 mg PO Q4H PRN PRN Reason: PAIN LEVEL 1-5 Last Admin: 05/26/19 18:57 Dose: 650 mg Aspirin (Ecotrin -) 81 mg PO DAILY [facility] Last Admin: 05/27/19 11:38 Dose: 81 mg Atorvastatin Calcium (Lipitor -) 40 mg PO HS [facility]S [facility] Last Admin: 05/27/19 21:47 Dose: 40 mg Bacitracin (Bacitracin -) 1 applic TP DAILY [facility] B[facility]S [facility] Carvedilol (Coreg -) 6.25 mg PO BID [facility]S [facility] Last Admin: 05/27/19 21:51 Dose: Not Given Folic Acid (Folic Acid -) 1 mg PO DAILY [facility]S [facility] Last Admin: 05/27/19 11:39 Dose: 1 mg Furosemide (Lasix Injection -) 40 mg IVPUSH BID@0600,1400 [facility]S [facility] Last Admin: 05/28/19 12:49 Dose: 40 mg Heparin Sodium (Porcine) (Heparin -) 5,000 unit SQ BID [facility]S [facility] Last Admin: 05/27/19 21:47 Dose: 5,000 unit Cefazolin Sodium 1 gm/ (Dextrose) 50 mls @ 100 mls/hr IVPB Q8H-IV [facility] 234 B[facility]S [facility] Last Admin: 05/28/19 02:34 Dose: 100 mls/hr Levalbuterol HCl (Xopenex) 0.63 mg IH RTID [facility] 234 B[facility]S [facility] Last Admin: 05/28/19 08:17 Dose: 0.63 mg Melatonin (Melatonin) 10 mg PO HS [facility] B[facility]S [facility] Last Admin: 05/27/19 21:46 Dose: 10 mg Mirtazapine (Remeron -) 7.5 mg PO HS [facility] 234 B[facility]S AT [facility] Last Admin: 05/27/19 21:46 Dose: 7.5 mg Potassium Chloride (Potassium Chloride Oral Liquid) 40 meq PO DAILY [facility] 234 BEDS AT [facility] Simethicone (Mylicon -) 80 mg PO Q4H PRN PRN Reason: GAS Tamsulosin HCl (Flomax -) 0.4 mg PO DAILY@0830 [facility] 234 BEDS [facility] Last Admin: 05/27/19 11:38 Dose: 0.4 mg Thiamine HCl (Vitamin B1 -) 100 mg PO DAILY [facility] 234 B[facility]S [facility] Last Admin: 05/27/19 11:40 Dose: 100 mg - Objective Vital Signs: Vital Signs Temperature 98 F 02/10/20 14:15 Pulse Rate 122 H 05/28/19 14:15 Respiratory Rate 22 H 05/28/19 14:15 Blood Pressure 99/69 05/28/19 14:15 O2 Sat by Pulse Oximetry (%) 92 L 05/27/19 20:55 Constitutional: Yes: Calm Eyes: Yes: Conjunctiva Clear Cardiovascular: Yes: S1, S2 Respiratory: Yes: On BiPap Gastrointestinal: Yes: Soft Genitourinary: Yes: Incontinence Edema: Yes Edema: LLE: 2+, RLE: 2+ Neurological: Yes: Oriented Psychiatric: Yes: Oriented Labs: CBC, BMP 05/28/19 06:20 05/28/19 06:20 INR, PTT INR 1.22 (0.83-1.09) H 05/25/19 16:48 Problem List - Problems (1) SHIMA (acute kidney injury) Code(s): N17.9 - ACUTE KIDNEY FAILURE, UNSPECIFIED (2) CHF exacerbation Code(s): I50.9 - HEART FAILURE, UNSPECIFIED (3) Cellulitis Code(s): L03.90 - CELLULITIS, UNSPECIFIED Assessment/Plan Current Medications Generic Name Dose Route Start Last Admin Trade Name Freq PRN Reason Stop Dose Admin Acetaminophen 650 mg 05/26/19 18:37 05/26/19 18:57 Tylenol - PO 650 mg Q4H PRN Administration PAIN LEVEL 1-5 Aspirin 81 mg 05/26/19 10:00 05/27/19 11:38 Ecotrin - PO 81 mg DAILY [facility] Administration Atorvastatin Calcium 40 mg 05/26/19 22:00 05/27/19 21:47 Lipitor - PO 40 mg HS [facility] Administration Bacitracin 1 applic 05/28/19 10:00 Bacitracin - TP DAILY [facility] Carvedilol 6.25 mg 05/26/19 13:49 05/27/19 21:51 Coreg - PO Not Given BID [facility] Folic Acid 1 mg 05/26/19 10:00 05/27/19 11:39 Folic Acid - PO 1 mg DAILY [facility] Administration Furosemide 40 mg 05/26/19 06:00 05/28/19 12:49 Lasix Injection - IVPUSH 40 mg BID@0600,1400 [facility] Administration Heparin Sodium (Porcine) 5,000 unit 05/26/19 22:00 05/27/19 21:47 Heparin - SQ 5,000 unit BID [facility] Administration Cefazolin Sodium 1 gm/ 50 mls @ 100 mls/hr 05/26/19 11:00 05/28/19 02:34 Dextrose IVPB 100 mls/hr Q8H-IV [facility] Administration Levalbuterol HCl 0.63 mg 05/27/19 16:15 05/28/19 08:17 Xopenex IH 0.63 mg RTID [facility]E Administration Melatonin 10 mg 05/26/19 22:00 05/27/19 21:46 Melatonin PO 10 mg HS [facility] Administration Mirtazapine 7.5 mg 05/25/19 23:46 05/27/19 21:46 Remeron - PO 7.5 mg HS [facility] Administration Potassium Chloride 40 meq 05/28/19 10:00 Potassium Chloride Oral Liquid PO DAILY [facility] Simethicone 80 mg 05/28/19 02:18 Mylicon - PO Q4H PRN GAS Tamsulosin HCl 0.4 mg 05/26/19 08:30 05/27/19 11:38 Flomax - PO 0.4 mg DAILY@0830 [facility] Administration Thiamine HCl 100 mg 05/26/19 10:00 05/27/19 11:40 Vitamin B1 - PO 100 mg DAILY [facility] Administration Impression 1. SHIMA 2. CHF 3. COPD 4. a-fib 5. cad 6. cva 7. hypokalemia Plan - hook and eye attacher continues to improve - cont lasix and monitor volume status - bipap as needed - renal ultrasound reviewed - avoid nsaids
--- NOTE | 2019-05-28 17:08 | PN ---
Progress Note (short form) - Note Progress Note: legs remain edematous now on bipap Vital Signs Period Temp Pulse Resp BP Sys/Babb Pulse Ox Last 24 Hr 97.6 F-98.4 F 118-124 20-24 93-124/60-72 92 cor-rrr lungs decreased bs at bases abd soft,nt ext +edema +erythema slightly improved CBC, BMP 05/28/19 06:20 05/28/19 06:20 Microbiology 05/25/19 16:48 Blood - Peripheral Venous Blood Culture - Preliminary NO GROWTH OBTAINED AFTER 72 HOURS, INCUBATION TO CONTINUE FOR 2 DAYS. 05/25/19 16:48 Blood - Peripheral Venous Blood Culture - Preliminary NO GROWTH OBTAINED AFTER 72 HOURS, INCUBATION TO CONTINUE FOR 2 DAYS. 05/25/19 17:36 Urine - Urine Clean Catch Urine Culture - Final NO GROWTH OBTAINED a/p cellulitis on ancef afib with RVR chf shima continue cefazolin cardiology/pulmonary f/u ongoing Problem List - Problems (1) Cellulitis Code(s): L03.90 - CELLULITIS, UNSPECIFIED (2) Afib Code(s): I48.91 - UNSPECIFIED ATRIAL FIBRILLATION (3) CHF exacerbation Code(s): I50.9 - HEART FAILURE, UNSPECIFIED (4) SHIMA (acute kidney injury) Code(s): N17.9 - ACUTE KIDNEY FAILURE, UNSPECIFIED
[2019-05-28] MEDS: BACITRACIN 15 GM TUBE TOPICAL OINTMENT TP SCH (18:24)
--- NOTE | 2019-05-28 18:33 | CON.PSY ---
Psychiatry Consult Chief Complaint: 73 [place] old male admitted from [facility], has very significant Chronic medical conditions. Patient seen for Psych eval to determine capacity to make decisions. apparantly he is refusing Respiratory care. Patient is alert and oriented and is able to comprehend. - Previous Psychiatric Treatment Outpatient: None Inpatient: None - Previous Substance Abuse Treatment Outpatient: None Inpatient: None - Current Medications Current Medications: Active Medications Acetaminophen (Tylenol -) 650 mg PO Q4H PRN PRN Reason: PAIN LEVEL 1-5 Last Admin: 05/26/19 18:57 Dose: 650 mg Aspirin (Ecotrin -) 81 mg PO DAILY [facility] Last Admin: 05/27/19 11:38 Dose: 81 mg Atorvastatin Calcium (Lipitor -) 40 mg PO HS [facility] Last Admin: 05/27/19 21:47 Dose: 40 mg Bacitracin (Bacitracin -) 1 applic TP DAILY [facility] Carvedilol (Coreg -) 6.25 mg PO BID [facility] Last Admin: 05/27/19 21:51 Dose: Not Given Folic Acid (Folic Acid -) 1 mg PO DAILY [facility] Last Admin: 05/27/19 11:39 Dose: 1 mg Furosemide (Lasix Injection -) 40 mg IVPUSH BID@0600,1400 [facility] Last Admin: 05/28/19 12:49 Dose: 40 mg Heparin Sodium (Porcine) (Heparin -) 5,000 unit SQ BID [facility] Last Admin: 05/27/19 21:47 Dose: 5,000 unit Cefazolin Sodium 1 gm/ (Dextrose) 50 mls @ 100 mls/hr IVPB Q8H-IV [facility] Last Admin: 05/28/19 02:34 Dose: 100 mls/hr Levalbuterol HCl (Xopenex) 0.63 mg IH RTID [facility] Last Admin: 05/28/19 14:15 Dose: 0.63 mg Melatonin (Melatonin) 10 mg PO HS [facility] Last Admin: 05/27/19 21:46 Dose: 10 mg Mirtazapine (Remeron -) 7.5 mg PO HS [facility] Last Admin: 05/27/19 21:46 Dose: 7.5 mg Potassium Chloride (Potassium Chloride Oral Liquid) 40 meq PO DAILY [facility] Simethicone (Mylicon -) 80 mg PO Q4H PRN PRN Reason: GAS Tamsulosin HCl (Flomax -) 0.4 mg PO DAILY@0830 [facility] Last Admin: 05/27/19 11:38 Dose: 0.4 mg Thiamine HCl (Vitamin B1 -) 100 mg PO DAILY [facility] Last Admin: 05/27/19 11:40 Dose: 100 mg - Allergies Allergies: Allergies Allergy/AdvReac Type Severity Reaction Status Date / Time lisinopril Allergy Verified 05/25/19 19:15 "all prils" Allergy Uncoded 05/25/19 19:15 - Current Living Status Usual Living Arrangement: Jail - Current Mental Status Evaluation Appearance: Disheveled Attitude: Guarded - Affect Appropriateness: Appropriate to Content - Mood Mood: Irritable - Speech/Language Expressive: Coherent - Psychomotor Activity Psychomotor Activity: Hyperactive - Thought Process Thought Process: Intact - Thought Content Hallucinations: Absent Delusions: Absent - Self Perception Self Perception: No Impairment - Cognition Attention: Alert Orientation: Time Memory, Immediate Recall: Intact Memory, Short Term: 2/3 Memory, Remote with Promptin/3 - Concentration Serial Sevens Intact: No Simple Calculations Intact: Yes - Abstraction Proverb Interpretation: Intact Judgement: Minimally Impaired - Insight Insight: Intact - Impulse Control Impulse Control: Good Control - Suicidal Ideation Suicidal Ideation: No - Homicidal Ideation Homicidal Ideation: No Assessment/Plan 1) Patient has the functional capacity to make decisions at this time.
[2019-05-28] MEDS: MORPHINE SULFATE 2 MG/ML VIAL IVPUSH PRN (18:45)
[2019-05-28] MEDS: ACETAMINOPHEN 325 MG TABLET (FP) PO PRN (20:54)
[2019-05-28] MEDS: MIRTAZAPINE 15 MG TABLET (FP) PO SCH (21:02)
[2019-05-28] MEDS: MELATONIN 5 MG TABLETS PO SCH (21:02)
[2019-05-28] MEDS: ATORVASTATIN CA 40 MG TABLET (FP) PO SCH (21:03)
[2019-05-28] MEDS: CARVEDILOL 6.25 MG TABLET (FP) PO SCH (21:03)
[2019-05-29] MEDS ORDERED: ceFAZolin SODIUM 1 GM VIAL ONE ×3 (01:59→17:46)
[2019-05-29] MEDS ORDERED: DEXTROSE 5%-WATER - 50 ML IVPB ONE ×3 (01:59→17:46)
[2019-05-29] MEDS: CEFAZOLIN 1 GM in DEXTROSE 5%-WATER - 50 ML IVPB SCH ×3 (02:35→17:49)
[2019-05-29] MEDS ORDERED: SODIUM CHLORIDE 0.9% 250 ML INFUS.BAG IV ONE (06:27)
[2019-05-29] MEDS: FUROSEMIDE 40 MG/4 ML INJECTABLE VIAL IVPUSH SCH ×3 (06:44→15:54)
[2019-05-29 07:00] LABS: BASO % 0.7 % (0-2.0); HEMATOCRIT 33.5 % (35.4-49); LYMPH % 11.6 % (8-40); MCH 28.3 pg (25.7-33.7); MCHC 32.9 g/dl (32.0-35.9); MEAN CELL VOLUME 85.8 fl (80-96); MEAN PLT VOLUME 9.5 fl (7.5-11.1); MONO % 9.6 % (3.8-10.2); NEUT % 73.1 % (42.8-82.8); PLATELET COUNT 168 K/MM3 (134-434); RDW 18.2 % (11.9-15.9)
[2019-05-29 07:19] LABS: BILIRUBIN,TOTAL 1.7 mg/dL (0.2-1); CALCIUM 8.6 mg/dL (8.5-10.1); CREATININE 1.5 mg/dL (0.55-1.3); POTASSIUM 3.9 mmol/L (3.5-5.1); TOT PROT 6.4 g/dl (6.4-8.2)
[2019-05-29] MEDS: TAMSULOSIN HCL 0.4 MG CAP PO SCH ×2 (07:57→10:15)
[2019-05-29] MEDS: ASPIRIN COATED 81 MG TABLET.EC PO SCH ×2 (07:58→10:14)
[2019-05-29] MEDS: FOLIC ACID 1 MG TABLET (FP) PO SCH ×2 (07:58→10:15)
[2019-05-29] MEDS: CARVEDILOL 6.25 MG TABLET (FP) PO SCH ×4 (07:58→22:22)
[2019-05-29] MEDS: THIAMINE HCL 100 MG TABLET (FP) PO SCH ×2 (07:58→10:17)
--- NOTE | 2019-05-29 08:40 | PN ---
Progress Note, Physician Chief Complaint: REFUSED ECHO TODAY AFTER I SPOKE TO HIM HE THEN CHANGED HIS MIND THEN SAID HE WOULD TRY IT. 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 AND SHE WILL RETRY IF HE IS COMPLIANT STILL SOB ON 02 - Current Medication List Current Medications: Active Medications Acetaminophen (Tylenol -) 650 mg PO Q4H PRN PRN Reason: PAIN LEVEL 1-5 Last Admin: 05/28/19 20:54 Dose: 650 mg Aspirin (Ecotrin -) 81 mg PO DAILY [facility] Last Admin: 05/29/19 07:58 Dose: Not Given Atorvastatin Calcium (Lipitor -) 40 mg PO HS [facility] Last Admin: 05/28/19 21:03 Dose: 40 mg Bacitracin (Bacitracin -) 1 applic TP DAILY [facility] Last Admin: 05/28/19 18:24 Dose: 1 applic Carvedilol (Coreg -) 6.25 mg PO BID [facility] Last Admin: 05/29/19 07:58 Dose: Not Given Folic Acid (Folic Acid -) 1 mg PO DAILY [facility] Last Admin: 05/29/19 07:58 Dose: Not Given Furosemide (Lasix Injection -) 40 mg IVPUSH BID@0600,1400 [facility] Last Admin: 05/29/19 07:58 Dose: Not Given Heparin Sodium (Porcine) (Heparin -) 5,000 unit SQ BID [facility] Last Admin: 05/28/19 21:02 Dose: 5,000 unit Cefazolin Sodium 1 gm/ (Dextrose) 50 mls @ 100 mls/hr IVPB Q8H-IV [facility] Last Admin: 05/29/19 02:35 Dose: 100 mls/hr Levalbuterol HCl (Xopenex) 0.63 mg IH RTID [facility] Last Admin: 05/28/19 20:39 Dose: 0.63 mg Melatonin (Melatonin) 10 mg PO HS [facility] Last Admin: 05/28/19 21:02 Dose: 10 mg Mirtazapine (Remeron -) 7.5 mg PO HS [facility] Last Admin: 05/28/19 21:02 Dose: 7.5 mg Morphine Sulfate (Morphine Sulfate) 2 mg IVPUSH Q4H PRN PRN Reason: dyspnea Last Admin: 05/28/19 18:45 Dose: 2 mg Potassium Chloride (Potassium Chloride Oral Liquid) 40 meq PO DAILY [facility] Last Admin: 05/28/19 10:30 Dose: Not Given Simethicone (Mylicon -) 80 mg PO Q4H PRN PRN Reason: GAS Tamsulosin HCl (Flomax -) 0.4 mg PO DAILY@0830 [facility] Last Admin: 05/29/19 07:57 Dose: Not Given Thiamine HCl (Vitamin B1 -) 100 mg PO DAILY [facility] Last Admin: 05/29/19 07:58 Dose: Not Given - Objective Vital Signs: Vital Signs Temperature 97.5 F L 05/29/19 05:59 Pulse Rate 117 H 05/29/19 08:06 Respiratory Rate 22 H 05/29/19 08:06 Blood Pressure 88/54 L 05/29/19 08:06 O2 Sat by Pulse Oximetry (%) 91 L 05/28/19 20:36 Constitutional: Yes: Mild Distress Cardiovascular: Yes: Pulse Irregular Respiratory: Yes: Diminished, On Nasal O2 Gastrointestinal: Yes: Abdomen, Obese Genitourinary: Yes: Incontinence Musculoskeletal: Yes: Muscle Weakness Edema: Yes Integumentary: Yes: Rash, Skin Tear, Venous Stasis Changes Neurological: Yes: Pre-Existing Deficit ...Motor Strength: LLE, RLE Psychiatric: Yes: Other Labs: CBC, BMP 05/29/19 06:00 05/29/19 06:05 INR, PTT INR 1.22 (0.83-1.09) H 05/25/19 16:48 Problem List - Problems (1) SHIMA (acute kidney injury) Code(s): N17.9 - ACUTE KIDNEY FAILURE, UNSPECIFIED (2) Acute on chronic respiratory failure with hypoxia and hypercapnia Code(s): J96.21 - ACUTE AND CHRONIC RESPIRATORY FAILURE WITH HYPOXIA; J96.22 - ACUTE AND CHRONIC RESPIRATORY FAILURE WITH HYPERCAPNIA (3) Afib Code(s): I48.91 - UNSPECIFIED ATRIAL FIBRILLATION (4) CHF exacerbation Code(s): I50.9 - HEART FAILURE, UNSPECIFIED (5) COPD (chronic obstructive pulmonary disease) Code(s): J44.9 - CHRONIC OBSTRUCTIVE PULMONARY DISEASE, UNSPECIFIED (6) Cellulitis Code(s): L03.90 - CELLULITIS, UNSPECIFIED (7) HLD (hyperlipidemia) Code(s): E78.5 - HYPERLIPIDEMIA, UNSPECIFIED (8) Hypothyroid Code(s): E03.9 - HYPOTHYROIDISM, UNSPECIFIED (9) Pleural effusion Code(s): J90 - PLEURAL EFFUSION, NOT ELSEWHERE CLASSIFIED Assessment/Plan ECHO RESULTS REVIEWED ON SUPPORT PATIENT AND PALLIATIVE CARE WORKING ON DECISION WITH FAMILY ON ADVANCED DIRECTIVES. AT THIS POINT PATIENT IS DNR/DNI AND MEDICAL WORKUP IS IN PROGRESS WITH IV ABX 02 SUPPORT DVT PROPHYLAXIS WOUND CARE LABS AND CARDIAC WORKUP ON TELE WITH [facility] SIGNIFICANT FOR PVC AND NON-SUSTAINED VTACH. ANEMIA/ARF ON IVF ON FALL RISKS
[2019-05-29] MEDS: LEVALBUTEROL HCL 0.63 MG/3 ML VIAL.NEB. IH SCH ×3 (08:50→20:35)
[2019-05-29] MEDS: HEPARIN NA (PORCINE) 5,000 UNITS/ML 1ML VIAL SQ SCH ×2 (10:16→22:22)
[2019-05-29] MEDS: POTASSIUM CHLORIDE ORAL LIQUID 20 MEQ/15 ML PO SCH (10:18)
[2019-05-29] MEDS: DIGOXIN 0.5 MG/2 ML AMPUL IVPUSH SCH ×2 (10:44→16:17)
--- NOTE | 2019-05-29 11:17 | PN ---
Progress Note, Physician History of Present Illness: pulmonary awake on bipap,less dyspneic,pt desaturates when off bipap 70-80% - Current Medication List Current Medications: Active Medications Acetaminophen (Tylenol -) 650 mg PO Q4H PRN PRN Reason: PAIN LEVEL 1-5 Last Admin: 05/28/19 20:54 Dose: 650 mg Aspirin (Ecotrin -) 81 mg PO DAILY [facility] Last Admin: 05/29/19 10:14 Dose: 81 mg Atorvastatin Calcium (Lipitor -) 40 mg PO HS [facility] Last Admin: 05/28/19 21:03 Dose: 40 mg Bacitracin (Bacitracin -) 1 applic TP DAILY [facility] Last Admin: 05/28/19 18:24 Dose: 1 applic Carvedilol (Coreg -) 6.25 mg PO BID [facility] Last Admin: 05/29/19 10:46 Dose: Not Given Digoxin (Lanoxin Injection -) 0.25 mg IVPUSH Q6H [facility] Stop: 05/29/19 16:16 Last Admin: 05/29/19 10:44 Dose: 0.25 mg Folic Acid (Folic Acid -) 1 mg PO DAILY [facility] Last Admin: 05/29/19 10:15 Dose: 1 mg Furosemide (Lasix Injection -) 40 mg IVPUSH BID@0600,1400 [facility] Last Admin: 05/29/19 07:58 Dose: Not Given Heparin Sodium (Porcine) (Heparin -) 5,000 unit SQ BID [facility] Last Admin: 05/29/19 10:16 Dose: 5,000 unit Cefazolin Sodium 1 gm/ (Dextrose) 50 mls @ 100 mls/hr IVPB Q8H-IV [facility] Last Admin: 05/29/19 10:16 Dose: 100 mls/hr Levalbuterol HCl (Xopenex) 0.63 mg IH RTID [facility] Last Admin: 05/28/19 20:39 Dose: 0.63 mg Melatonin (Melatonin) 10 mg PO HS [facility] Last Admin: 05/28/19 21:02 Dose: 10 mg Mirtazapine (Remeron -) 7.5 mg PO HS [facility] Last Admin: 05/28/19 21:02 Dose: 7.5 mg Morphine Sulfate (Morphine Sulfate) 2 mg IVPUSH Q4H PRN PRN Reason: dyspnea Last Admin: 05/28/19 18:45 Dose: 2 mg Potassium Chloride (Potassium Chloride Oral Liquid) 40 meq PO DAILY [facility] Last Admin: 05/29/19 10:18 Dose: 40 meq Simethicone (Mylicon -) 80 mg PO Q4H PRN PRN Reason: GAS Tamsulosin HCl (Flomax -) 0.4 mg PO DAILY@0830 [facility] Last Admin: 05/29/19 10:15 Dose: 0.4 mg Thiamine HCl (Vitamin B1 -) 100 mg PO DAILY [facility] Last Admin: 05/29/19 10:17 Dose: 100 mg - Objective Vital Signs: Vital Signs Temperature 97.5 F L 05/29/19 05:59 Pulse Rate 117 H 05/29/19 10:44 Respiratory Rate 22 H 05/29/19 08:06 Blood Pressure 88/54 L 05/29/19 08:06 O2 Sat by Pulse Oximetry (%) 91 L 05/28/19 20:36 Constitutional: Yes: Well Nourished, Calm Eyes: Yes: WNL HENT: Yes: WNL Neck: Yes: WNL Cardiovascular: Yes: Pulse Irregular, S1, S2 Respiratory: Yes: Rales (bilateral rales and rhonchi), Rhonchi Gastrointestinal: Yes: Normal Bowel Sounds, Soft Extremities: Yes: Erythema Edema: Yes Labs: CBC, BMP 05/29/19 06:00 05/29/19 06:05 INR, PTT INR 1.22 (0.83-1.09) H 05/25/19 16:48 Problem List - Problems (1) Acute on chronic respiratory failure with hypoxia and hypercapnia Code(s): J96.21 - ACUTE AND CHRONIC RESPIRATORY FAILURE WITH HYPOXIA; J96.22 - ACUTE AND CHRONIC RESPIRATORY FAILURE WITH HYPERCAPNIA (2) HLD (hyperlipidemia) Code(s): E78.5 - HYPERLIPIDEMIA, UNSPECIFIED (3) HTN (hypertension) Code(s): I10 - ESSENTIAL (PRIMARY) HYPERTENSION Assessment/Plan Problem List - Problems (1) Afib Code(s): I48.91 - UNSPECIFIED ATRIAL FIBRILLATION (2) CHF exacerbation Code(s): I50.9 - HEART FAILURE, UNSPECIFIED (3) COPD (chronic obstructive pulmonary disease) Code(s): J44.9 - CHRONIC OBSTRUCTIVE PULMONARY DISEASE, UNSPECIFIED (4) Cellulitis Code(s): L03.90 - CELLULITIS, UNSPECIFIED Assessment/Plan VBG SHOWS PCO2 [address] 7.32 LIKELY CHRONIC CO2 RETAINER(COPD) COPD AND PL EFFUSION ON CXR/NO PE ACUTE ON CHRONIC HYPOXEMIC/HYPERCAPNEIC RESPIRATORY FAILURE ABG CONTINUE O2, NIPPV IF PT COMPLIES BRONCHODILATORS LASIX F/U CHEST X-RAYS DR MCMILLAN Problem List - Problems (1) Afib Code(s): I48.91 - UNSPECIFIED ATRIAL FIBRILLATION (2) CHF exacerbation Code(s): I50.9 - HEART FAILURE, UNSPECIFIED (3) COPD (chronic obstructive pulmonary disease) Code(s): J44.9 - CHRONIC OBSTRUCTIVE PULMONARY DISEASE, UNSPECIFIED (4) Cellulitis Code(s): L03.90 - CELLULITIS, UNSPECIFIED
--- NOTE | 2019-05-29 12:29 | PN ---
Progress Note, Physician History of Present Illness: seen and examined today in nad. denies any new complaints. states he feels about the same, no palpitations, lightheadedness. - Current Medication List Current Medications: Active Medications Acetaminophen (Tylenol -) 650 mg PO Q4H PRN PRN Reason: PAIN LEVEL 1-5 Last Admin: 05/28/19 20:54 Dose: 650 mg Aspirin (Ecotrin -) 81 mg PO DAILY [facility]PL[facility] Last Admin: 05/29/19 10:14 Dose: 81 mg Atorvastatin Calcium (Lipitor -) 40 mg PO HS [facility] Last Admin: 05/28/19 21:03 Dose: 40 mg Bacitracin (Bacitracin -) 1 applic TP DAILY [facility] Last Admin: 05/28/19 18:24 Dose: 1 applic Carvedilol (Coreg -) 6.25 mg PO BID [facility] Last Admin: 05/29/19 10:46 Dose: Not Given Digoxin (Lanoxin Injection -) 0.25 mg IVPUSH Q6H [facility] Stop: 05/29/19 16:16 Last Admin: 05/29/19 10:44 Dose: 0.25 mg Folic Acid (Folic Acid -) 1 mg PO DAILY [facility] Last Admin: 05/29/19 10:15 Dose: 1 mg Furosemide (Lasix Injection -) 40 mg IVPUSH BID@0600,1400 [facility] Last Admin: 05/29/19 07:58 Dose: Not Given Heparin Sodium (Porcine) (Heparin -) 5,000 unit SQ BID [facility] Last Admin: 05/29/19 10:16 Dose: 5,000 unit Cefazolin Sodium 1 gm/ (Dextrose) 50 mls @ 100 mls/hr IVPB Q8H-IV [facility] Last Admin: 05/29/19 10:16 Dose: 100 mls/hr Levalbuterol HCl (Xopenex) 0.63 mg IH RTID [facility] Last Admin: 05/28/19 20:39 Dose: 0.63 mg Melatonin (Melatonin) 10 mg PO HS [facility] Last Admin: 05/28/19 21:02 Dose: 10 mg Mirtazapine (Remeron -) 7.5 mg PO HS [facility] Last Admin: 05/28/19 21:02 Dose: 7.5 mg Morphine Sulfate (Morphine Sulfate) 2 mg IVPUSH Q4H PRN PRN Reason: dyspnea Last Admin: 05/28/19 18:45 Dose: 2 mg Potassium Chloride (Potassium Chloride Oral Liquid) 40 meq PO DAILY [facility] Last Admin: 05/29/19 10:18 Dose: 40 meq Simethicone (Mylicon -) 80 mg PO Q4H PRN PRN Reason: GAS Tamsulosin HCl (Flomax -) 0.4 mg PO DAILY@0830 [facility] Last Admin: 05/29/19 10:15 Dose: 0.4 mg Thiamine HCl (Vitamin B1 -) 100 mg PO DAILY [facility] Last Admin: 05/29/19 10:17 Dose: 100 mg - Objective Vital Signs: Vital Signs Temperature 97.7 F 05/29/19 11:00 Pulse Rate 117 H 05/29/19 11:00 Respiratory Rate 18 05/29/19 11:00 Blood Pressure 108/61 05/29/19 11:00 O2 Sat by Pulse Oximetry (%) 91 L 05/28/19 20:36 Constitutional: Yes: No Distress, Calm Eyes: Yes: Conjunctiva Clear, EOM Intact HENT: Yes: Atraumatic, Normocephalic Neck: Yes: Supple, Trachea Midline Cardiovascular: Yes: Tachycardia, S1, S2. No: Regular Rate and Rhythm, Bradycardia, Pulse Irregular, Bruit, JVD, Gallop, Murmur, Rub, S3, S4, Varicosities Respiratory: Yes: Regular, Diminished, On Nasal O2, Rhonchi. No: Rales, SOB, Wheezes Gastrointestinal: Yes: Normal Bowel Sounds, Soft Edema: Yes Edema: LLE: Trace, RLE: Trace Peripheral Pulses WNL: Yes Peripheral Pulses: Left Doralis Pedis: 2+, Right Dorsalis Pedis: 2+ Neurological: Yes: Alert, Oriented Psychiatric: Yes: Alert, Oriented Labs: CBC, BMP 05/29/19 06:00 05/29/19 06:05 INR, PTT INR 1.22 (0.83-1.09) H 05/25/19 16:48 - ....Imaging Chest X-ray: Report Reviewed, Image Reviewed EKG: Report Reviewed, Image Reviewed Other: Report Reviewed, Image Reviewed (tele-aflutter with mild rvr) Assessment/Plan 73 year old male NHR with a PMH of HTN, HLD, COPD on home O2, and past AFIB. He has know CAD with a past stent in 2007 at [facility]. He is known to have chronic bilateral LE edema. He was admitted [place] the [place] to [facility] with worsening b/l LE edema, erythema, cellulitis, and SOB. 05/28/2019 HR still elevated (HR 118) and still with SOB. LE edema-acute on chronic -likely chronic venous insufficiency as well as acute on chronic CHF unknown type -superimposed cellulitis -cont Abx as per ID reccs -cont Furosemide (Lasix Injection -) 40 mg IVPUSH BID -monitor strict I/Os, daily weights, bun/creat, electrolytes and replete as needed -echo pending -obtain prior records as to details of cardiac history Arrhythmia-reported h/o AFib but pt unaware of this diagnosis and denies ever being on full AC -Noted on Telem and EKG to have atrial flutter, no AC for now until more PMH can be obtained (was he intolerant to AC prior?) -cont Coreg 6.25mg bid as BP tolerates -If HR's are still elevated, increase COREG to 12.5 mg PO BID, if BP tolerates -Ability to uptitrate bblocker limited by low normal BP -HR is still uncontrolled. start Digoxin 0.25mg IVP x 2 doses today then 0.25mg po daily tomorrow SOB -likely multifactorial due to volume overload as above as well as COPD -Conitnue current therapy
[2019-05-29] MEDS: MORPHINE SULFATE 2 MG/ML VIAL IVPUSH PRN ×2 (12:46→20:13)
--- NOTE | 2019-05-29 13:20 | ECHO ---
Version: 1 Name: MICHEL SPARKS Exam: Adult Echocardiogram Study Date: 05/29/2019, 7:33 AM Age: 73 Years MMode/2D Measurements & Calculations IVSd: 0.94 cm LVIDs: 4.0 cm LVIDd: 5.2 cm LVPWd: 0.96 cm ACS: 1.65 cm Ao root diam: 3.1 cm LA dimension: 4.8 cm Doppler Measurements & Calculations MR max P.2 mmHg Ao max P.7 mmHg Ao mean P.53 mmHg Ao V2 max: 81.4 cm/sec TR max susy: 276.8 cm/sec TR max P.7 mmHg Procedure A complete two-dimensional transthoracic echocardiogram was performed (2D, M-mode, Doppler and color flow Doppler). Left Ventricle The left ventricle is normal in size. Ejection Fraction = 35%. E/A reversal consistent with but not diagnostic of poor LV compliance. Paradoxical septal motion is consistent with right ventricular vol ume overload. There is moderate to severe anterior wall hypokinesis. There is apical akinesis. Right Ventricle The right ventricle is moderately dilated. The right ventricular systolic function is moderately red uced. Atria The left atrium is moderately dilated. The right atrium is moderately dilated. Mitral Valve The mitral valve is normal in structure and function. There is mild mitral annular calcification. Th ere is mild to moderate mitral regurgitation. Tricuspid Valve The tricuspid valve is normal in structure and function. There is moderate tricuspid regurgitation. Right ventricular systolic pressure is elevated at 40 mmhg. Assuming the RA pressure is 5 mmHg. Aortic Valve There is mild to moderate aortic valve thickening. Pulmonic Valve The pulmonic valve is normal in structure and function. Great Vessels The aortic root is normal size. Pericardium/Pleura There is no pericardial effusion. There is no pleural effusion. Summary Statements The left ventricle is normal in size. Paradoxical septal motion is consistent with right ventricular volume overload. There is moderate to severe anterior wall hypokinesis. There is apical akinesis. Ejection Fraction = 35%. The right ventricle is moderately dilated. The right ventricular systolic function is moderately reduced. The left atrium is moderately dilated. The right atrium is moderately dilated. There is mild mitral annular calcification. There is mild to moderate mitral regurgitation. There is moderate tricuspid regurgitation. There is mild to moderate aortic valve thickening. Right ventricular systolic pressure is elevated at 40 mmhg. MD Jhonathan Rios 05/29/2019, 1:19 PM Ordering Physician: Kathryn Peters Performed By: Moira Anthony
--- NOTE | 2019-05-29 14:31 | PN ---
Progress Note, Physician History of Present Illness: Pt seen and examined at bedside. He is awake and appears more comfortable than yesterday. - Current Medication List Current Medications: Active Medications Acetaminophen (Tylenol -) 650 mg PO Q4H PRN PRN Reason: PAIN LEVEL 1-5 Last Admin: 05/28/19 20:54 Dose: 650 mg Aspirin (Ecotrin -) 81 mg PO DAILY [facility] Last Admin: 05/29/19 10:14 Dose: 81 mg Atorvastatin Calcium (Lipitor -) 40 mg PO HS [facility] Last Admin: 05/28/19 21:03 Dose: 40 mg Bacitracin (Bacitracin -) 1 applic TP DAILY [facility] Last Admin: 05/28/19 18:24 Dose: 1 applic Carvedilol (Coreg -) 6.25 mg PO BID [facility] Last Admin: 05/29/19 10:46 Dose: Not Given Digoxin (Lanoxin Injection -) 0.25 mg IVPUSH Q6H [facility] Stop: 05/29/19 16:16 Last Admin: 05/29/19 10:44 Dose: 0.25 mg Digoxin (Lanoxin -) 0.25 mg PO DAILY [facility] Folic Acid (Folic Acid -) 1 mg PO DAILY [facility] Last Admin: 05/29/19 10:15 Dose: 1 mg Furosemide (Lasix Injection -) 40 mg IVPUSH BID@0600,1400 [facility] Last Admin: 05/29/19 07:58 Dose: Not Given Heparin Sodium (Porcine) (Heparin -) 5,000 unit SQ BID [facility] Last Admin: 05/29/19 10:16 Dose: 5,000 unit Cefazolin Sodium 1 gm/ (Dextrose) 50 mls @ 100 mls/hr IVPB Q8H-IV [facility] Last Admin: 05/29/19 10:16 Dose: 100 mls/hr Levalbuterol HCl (Xopenex) 0.63 mg IH RTID [facility] Last Admin: 05/29/19 08:50 Dose: 0.63 mg Melatonin (Melatonin) 10 mg PO HS [facility] Last Admin: 05/28/19 21:02 Dose: 10 mg Mirtazapine (Remeron -) 7.5 mg PO HS [facility] Last Admin: 05/28/19 21:02 Dose: 7.5 mg Morphine Sulfate (Morphine Sulfate) 2 mg IVPUSH Q4H PRN PRN Reason: dyspnea Last Admin: 05/29/19 12:46 Dose: 2 mg Potassium Chloride (Potassium Chloride Oral Liquid) 40 meq PO DAILY [facility] Last Admin: 05/29/19 10:18 Dose: 40 meq Simethicone (Mylicon -) 80 mg PO Q4H PRN PRN Reason: GAS Tamsulosin HCl (Flomax -) 0.4 mg PO DAILY@0830 [facility] Last Admin: 05/29/19 10:15 Dose: 0.4 mg Thiamine HCl (Vitamin B1 -) 100 mg PO DAILY [facility] Last Admin: 05/29/19 10:17 Dose: 100 mg - Objective Vital Signs: Vital Signs Temperature 97.7 F 05/29/19 11:00 Pulse Rate 117 H 05/29/19 11:00 Respiratory Rate 18 05/29/19 11:00 Blood Pressure 108/61 05/29/19 11:00 O2 Sat by Pulse Oximetry (%) 91 L 05/28/19 20:36 Constitutional: Yes: Calm Eyes: Yes: Conjunctiva Clear HENT: Yes: Atraumatic Neck: Yes: Supple Cardiovascular: Yes: S1, S2 Respiratory: Yes: On BiPap Gastrointestinal: Yes: Soft Genitourinary: Yes: WNL Musculoskeletal: Yes: WNL Edema: Yes Edema: LLE: 2+, RLE: 2+ Neurological: Yes: Oriented Psychiatric: Yes: Oriented Labs: CBC, BMP 05/29/19 06:00 05/29/19 06:05 INR, PTT INR 1.22 (0.83-1.09) H 05/25/19 16:48 Problem List - Problems (1) SHIMA (acute kidney injury) Code(s): N17.9 - ACUTE KIDNEY FAILURE, UNSPECIFIED (2) CHF exacerbation Code(s): I50.9 - HEART FAILURE, UNSPECIFIED (3) Cellulitis Code(s): L03.90 - CELLULITIS, UNSPECIFIED Assessment/Plan Current Medications Generic Name Dose Route Start Last Admin Trade Name Freq PRN Reason Stop Dose Admin Acetaminophen 650 mg 05/26/19 18:37 05/28/19 20:54 Tylenol - PO 650 mg Q4H PRN Administration PAIN LEVEL 1-5 Aspirin 81 mg 05/26/19 10:00 05/29/19 10:14 Ecotrin - PO 81 mg DAILY [facility] Administration Atorvastatin Calcium 40 mg 05/26/19 22:00 05/28/19 21:03 Lipitor - PO 40 mg HS [facility] Administration Bacitracin 1 applic 05/28/19 10:00 05/28/19 18:24 Bacitracin - TP 1 applic DAILY [facility] Administration Carvedilol 6.25 mg 05/29/19 10:30 05/29/19 10:46 Coreg - PO Not Given BID [facility] Digoxin 0.25 mg 05/29/19 10:15 05/29/19 10:44 Lanoxin Injection - IVPUSH 05/29/19 16:16 0.25 mg Q6H [facility] Administration Digoxin 0.25 mg 05/30/19 10:00 Lanoxin - PO DAILY [facility] Folic Acid 1 mg 05/26/19 10:00 05/29/19 10:15 Folic Acid - PO 1 mg DAILY [facility] Administration Furosemide 40 mg 05/26/19 06:00 05/29/19 07:58 Lasix Injection - IVPUSH Not Given BID@0600,1400 [facility] Heparin Sodium (Porcine) 5,000 unit 05/26/19 22:00 05/29/19 10:16 Heparin - SQ 5,000 unit BID [facility] Administration Cefazolin Sodium 1 gm/ 50 mls @ 100 mls/hr 05/26/19 11:00 05/29/19 10:16 Dextrose IVPB 100 mls/hr Q8H-IV [facility] Administration Levalbuterol HCl 0.63 mg 05/27/19 16:15 05/29/19 08:50 Xopenex IH 0.63 mg RTID [facility] Administration Melatonin 10 mg 05/26/19 22:00 05/28/19 21:02 Melatonin PO 10 mg HS [facility] Administration Mirtazapine 7.5 mg 05/25/19 23:46 05/28/19 21:02 Remeron - PO 7.5 mg HS [facility] Administration Morphine Sulfate 2 mg 05/28/19 18:29 05/29/19 12:46 Morphine Sulfate IVPUSH 2 mg Q4H PRN Administration dyspnea Potassium Chloride 40 meq 05/28/19 10:00 05/29/19 10:18 Potassium Chloride Oral Liquid PO 40 meq DAILY [facility] Administration Simethicone 80 mg 05/28/19 02:18 Mylicon - PO Q4H PRN GAS Tamsulosin HCl 0.4 mg 05/26/19 08:30 02/11/20 10:15 Flomax - PO 0.4 mg DAILY@0830 [facility] Administration Thiamine HCl 100 mg 05/26/19 10:00 05/29/19 10:17 Vitamin B1 - PO 100 mg DAILY [facility] Administration Impression 1. SHIMA 2. CHF 3. COPD 4. a-fib 5. cad 6. cva 7. hypokalemia Plan - monitor renal function - cont lasix - monitor volume status - con bipap - avoid nsaids
[2019-05-29] MEDS: BACITRACIN 15 GM TUBE TOPICAL OINTMENT TP SCH (15:54)
[2019-05-29] MEDS: MIRTAZAPINE 15 MG TABLET (FP) PO SCH (22:21)
[2019-05-29] MEDS: ATORVASTATIN CA 40 MG TABLET (FP) PO SCH (22:21)
[2019-05-29] MEDS: MELATONIN 5 MG TABLETS PO SCH (22:22)
[2019-05-30] MEDS ORDERED: ceFAZolin SODIUM 1 GM VIAL ONE ×2 (01:34→08:30)
[2019-05-30] MEDS ORDERED: DEXTROSE 5%-WATER - 50 ML IVPB ONE ×2 (01:34→08:30)
[2019-05-30] MEDS: CEFAZOLIN 1 GM in DEXTROSE 5%-WATER - 50 ML IVPB SCH ×2 (03:44→09:52)
[2019-05-30] MEDS: FUROSEMIDE 40 MG/4 ML INJECTABLE VIAL IVPUSH SCH ×2 (06:34→13:38)
[2019-05-30] MEDS: LEVALBUTEROL HCL 0.63 MG/3 ML VIAL.NEB. IH SCH ×2 (08:01→14:47)
[2019-05-30] MEDS: POTASSIUM CHLORIDE ORAL LIQUID 20 MEQ/15 ML PO SCH (09:51)
[2019-05-30] MEDS: ASPIRIN COATED 81 MG TABLET.EC PO SCH (09:51)
[2019-05-30] MEDS: FOLIC ACID 1 MG TABLET (FP) PO SCH (09:51)
[2019-05-30] MEDS: THIAMINE HCL 100 MG TABLET (FP) PO SCH (09:51)
[2019-05-30] MEDS: TAMSULOSIN HCL 0.4 MG CAP PO SCH (09:51)
[2019-05-30] MEDS: CARVEDILOL 6.25 MG TABLET (FP) PO SCH (09:52)
[2019-05-30] MEDS: HEPARIN NA (PORCINE) 5,000 UNITS/ML 1ML VIAL SQ SCH (09:52)
[2019-05-30] MEDS: BACITRACIN 15 GM TUBE TOPICAL OINTMENT TP SCH (09:52)
[2019-05-30] MEDS ORDERED: DIGOXIN 0.25 MG TABLET (FP) PO SCH (10:00)
--- NOTE | 2019-05-30 10:33 | PN ---
Progress Note, Physician Chief Complaint: REFUSING INTERVENTIONS WANTS HOSPICE CARE IN BED COMFORTABLE - Current Medication List Current Medications: Active Medications Acetaminophen (Tylenol -) 650 mg PO Q4H PRN PRN Reason: PAIN LEVEL 1-5 Last Admin: 05/28/19 20:54 Dose: 650 mg Aspirin (Ecotrin -) 81 mg PO DAILY [facility] Last Admin: 05/30/19 09:51 Dose: 81 mg Atorvastatin Calcium (Lipitor -) 40 mg PO HS [facility] Last Admin: 05/29/19 22:21 Dose: 40 mg Bacitracin (Bacitracin -) 1 applic TP DAILY [facility] Last Admin: 05/30/19 09:52 Dose: 1 applic Carvedilol (Coreg -) 6.25 mg PO BID [facility] Last Admin: 05/30/19 09:52 Dose: 6.25 mg Digoxin (Lanoxin -) 0.25 mg PO DAILY [facility] Last Admin: 05/30/19 09:51 Dose: 0.25 mg Folic Acid (Folic Acid -) 1 mg PO DAILY [facility] Last Admin: 05/30/19 09:51 Dose: 1 mg Furosemide (Lasix Injection -) 40 mg IVPUSH BID@0600,1400 [facility] Last Admin: 05/30/19 06:34 Dose: 40 mg Heparin Sodium (Porcine) (Heparin -) 5,000 unit SQ BID [facility] Last Admin: 05/30/19 09:52 Dose: 5,000 unit Cefazolin Sodium 1 gm/ (Dextrose) 50 mls @ 100 mls/hr IVPB Q8H-IV [facility] Last Admin: 05/30/19 09:52 Dose: 100 mls/hr Levalbuterol HCl (Xopenex) 0.63 mg IH RTID [facility] Last Admin: 05/29/19 20:35 Dose: 0.63 mg Melatonin (Melatonin) 10 mg PO HS [facility] Last Admin: 05/29/19 22:22 Dose: 10 mg Mirtazapine (Remeron -) 7.5 mg PO HS [facility] Last Admin: 05/29/19 22:21 Dose: 7.5 mg Morphine Sulfate (Morphine Sulfate) 2 mg IVPUSH Q4H PRN PRN Reason: dyspnea Last Admin: 05/29/19 20:13 Dose: 2 mg Potassium Chloride (Potassium Chloride Oral Liquid) 40 meq PO DAILY [facility] Last Admin: 05/30/19 09:51 Dose: 40 meq Simethicone (Mylicon -) 80 mg PO Q4H PRN PRN Reason: GAS Tamsulosin HCl (Flomax -) 0.4 mg PO DAILY@0830 [facility] Last Admin: 05/30/19 09:51 Dose: 0.4 mg Thiamine HCl (Vitamin B1 -) 100 mg PO DAILY [facility] Last Admin: 05/30/19 09:51 Dose: 100 mg - Objective Vital Signs: Vital Signs Temperature 98.2 F 05/30/19 02:00 Pulse Rate 116 H 05/30/19 09:51 Respiratory Rate 05/30/19 02:00 Blood Pressure 99/40 L 05/30/19 02:00 O2 Sat by Pulse Oximetry (%) 88 L 05/29/19 21:00 Constitutional: Yes: Mild Distress Cardiovascular: Yes: Pulse Irregular Respiratory: Yes: Diminished Gastrointestinal: Yes: Abdomen, Obese Genitourinary: Yes: Incontinence Musculoskeletal: Yes: Muscle Weakness Edema: Yes Integumentary: Yes: Rash, Skin Tear, Venous Stasis Changes Wound/Incision: Yes: Open to air ...Motor Strength: LUE, LLE, RUE, RLE (SMALL SKIN TEARS) Psychiatric: Yes: Alert Labs: CBC, BMP 05/29/19 06:00 05/29/19 06:05 INR, PTT INR 1.22 (0.83-1.09) H 05/25/19 16:48 Problem List - Problems (1) SHIMA (acute kidney injury) Code(s): N17.9 - ACUTE KIDNEY FAILURE, UNSPECIFIED (2) Acute on chronic respiratory failure with hypoxia and hypercapnia Code(s): J96.21 - ACUTE AND CHRONIC RESPIRATORY FAILURE WITH HYPOXIA; J96.22 - ACUTE AND CHRONIC RESPIRATORY FAILURE WITH HYPERCAPNIA (3) Afib Code(s): I48.91 - UNSPECIFIED ATRIAL FIBRILLATION (4) CHF exacerbation Code(s): I50.9 - HEART FAILURE, UNSPECIFIED (5) COPD (chronic obstructive pulmonary disease) Code(s): J44.9 - CHRONIC OBSTRUCTIVE PULMONARY DISEASE, UNSPECIFIED (6) Cellulitis Code(s): L03.90 - CELLULITIS, UNSPECIFIED (7) HLD (hyperlipidemia) Code(s): E78.5 - HYPERLIPIDEMIA, UNSPECIFIED (8) Hypothyroid Code(s): E03.9 - HYPOTHYROIDISM, UNSPECIFIED (9) Pleural effusion Code(s): J90 - PLEURAL EFFUSION, NOT ELSEWHERE CLASSIFIED Assessment/Plan INITIATING IN HOSPITAL HOSPICE AWAITING PALLIATIVE CARE SHANNON SPOKE WITH FAMILY PATIENT HAS MADE THIS DECISION AND HE IS COMPETENT. PAIN CONTROL 02 SUPPORT NO LAB DRAWS NO IV'S COMFORT MEASURES ONLY
[2019-05-30] MEDS ORDERED: SCOPOLAMINE HYDROBROMIDE 1 PATCH PATCH.TD72 TD SCH (10:45)
--- NOTE | 2019-05-30 10:50 | PN ---
Progress Note, Physician History of Present Illness: PULMONARY AWAKE,COMFORTABLE ON BIPAP - Current Medication List Current Medications: Active Medications Acetaminophen (Tylenol -) 650 mg PO Q4H PRN PRN Reason: PAIN LEVEL 1-5 Last Admin: 05/28/19 20:54 Dose: 650 mg Aspirin (Ecotrin -) 81 mg PO DAILY [facility] Last Admin: 05/30/19 09:51 Dose: 81 mg Atorvastatin Calcium (Lipitor -) 40 mg PO HS [facility] Last Admin: 05/29/19 22:21 Dose: 40 mg Bacitracin (Bacitracin -) 1 applic TP DAILY [facility] Last Admin: 05/30/19 09:52 Dose: 1 applic Carvedilol (Coreg -) 6.25 mg PO BID [facility] Last Admin: 05/30/19 09:52 Dose: 6.25 mg Digoxin (Lanoxin -) 0.25 mg PO DAILY [facility] Last Admin: 05/30/19 09:51 Dose: 0.25 mg Folic Acid (Folic Acid -) 1 mg PO DAILY [facility] Last Admin: 05/30/19 09:51 Dose: 1 mg Furosemide (Lasix Injection -) 40 mg IVPUSH BID@0600,1400 [facility] Last Admin: 05/30/19 06:34 Dose: 40 mg Heparin Sodium (Porcine) (Heparin -) 5,000 unit SQ BID [facility] Last Admin: 05/30/19 09:52 Dose: 5,000 unit Cefazolin Sodium 1 gm/ (Dextrose) 50 mls @ 100 mls/hr IVPB Q8H-IV [facility] Last Admin: 05/30/19 09:52 Dose: 100 mls/hr Morphine Sulfate (Morphine 100mg/100ml-0.9% Nacl) 100 mg in 100 mls @ 1 mls/hr IVPB TITR [facility]; Protocol Levalbuterol HCl (Xopenex) 0.63 mg IH RTID [facility] Last Admin: 05/29/19 20:35 Dose: 0.63 mg Melatonin (Melatonin) 10 mg PO HS [facility] Last Admin: 05/29/19 22:22 Dose: 10 mg Mirtazapine (Remeron -) 7.5 mg PO HS [facility] Last Admin: 05/29/19 22:21 Dose: 7.5 mg Morphine Sulfate (Morphine Sulfate) 2 mg IVPUSH Q4H PRN PRN Reason: dyspnea Last Admin: 05/29/19 20:13 Dose: 2 mg Potassium Chloride (Potassium Chloride Oral Liquid) 40 meq PO DAILY [facility] Last Admin: 05/30/19 09:51 Dose: 40 meq Scopolamine HBr (Transderm-Scop -) 1 patch TD Q72H [facility] Simethicone (Mylicon -) 80 mg PO Q4H PRN PRN Reason: GAS Tamsulosin HCl (Flomax -) 0.4 mg PO DAILY@0830 [facility] Last Admin: 05/30/19 09:51 Dose: 0.4 mg Thiamine HCl (Vitamin B1 -) 100 mg PO DAILY [facility] Last Admin: 05/30/19 09:51 Dose: 100 mg - Objective Vital Signs: Vital Signs Temperature 98.2 F 05/30/19 02:00 Pulse Rate 116 H 05/30/19 09:51 Respiratory Rate 05/30/19 02:00 Blood Pressure 99/40 L 05/30/19 02:00 O2 Sat by Pulse Oximetry (%) 88 L 05/29/19 21:00 Constitutional: Yes: Well Nourished, Calm Eyes: Yes: WNL HENT: Yes: WNL Neck: Yes: WNL Cardiovascular: Yes: Pulse Irregular, S1, S2 Respiratory: Yes: Rhonchi (FEW RHONCHI) Gastrointestinal: Yes: Normal Bowel Sounds, Soft Extremities: Yes: WNL Edema: Yes Labs: CBC, BMP 05/29/19 06:00 Problem List - Problems (1) Acute on chronic respiratory failure with hypoxia and hypercapnia Code(s): J96.21 - ACUTE AND CHRONIC RESPIRATORY FAILURE WITH HYPOXIA; J96.22 - ACUTE AND CHRONIC RESPIRATORY FAILURE WITH HYPERCAPNIA (2) HLD (hyperlipidemia) Code(s): E78.5 - HYPERLIPIDEMIA, UNSPECIFIED (3) HTN (hypertension) Code(s): I10 - ESSENTIAL (PRIMARY) HYPERTENSION Assessment/Plan Problem List - Problems (1) Afib Code(s): I48.91 - UNSPECIFIED ATRIAL FIBRILLATION (2) CHF exacerbation Code(s): I50.9 - HEART FAILURE, UNSPECIFIED (3) COPD (chronic obstructive pulmonary disease) Code(s): J44.9 - CHRONIC OBSTRUCTIVE PULMONARY DISEASE, UNSPECIFIED (4) Cellulitis Code(s): L03.90 - CELLULITIS, UNSPECIFIED Assessment/Plan VBG SHOWS PCO2 [address] 7.32 LIKELY CHRONIC CO2 RETAINER(COPD) COPD AND PL EFFUSION ON CXR/NO PE ACUTE ON CHRONIC HYPOXEMIC/HYPERCAPNEIC RESPIRATORY FAILURE PULMONARY HTN CHF CONTINUE O2, CONTINUE NIPPV IF PT COMPLIES BRONCHODILATORS LASIX F/U CHEST X-RAYS DR MCMILLAN Problem List - Problems (1) Afib Code(s): I48.91 - UNSPECIFIED ATRIAL FIBRILLATION (2) CHF exacerbation Code(s): I50.9 - HEART FAILURE, UNSPECIFIED (3) COPD (chronic obstructive pulmonary disease) Code(s): J44.9 - CHRONIC OBSTRUCTIVE PULMONARY DISEASE, UNSPECIFIED (4) Cellulitis Code(s): L03.90 - CELLULITIS, UNSPECIFIED
[2019-05-30] MEDS: MORPHINE SULFATE 2 MG/ML VIAL IVPUSH PRN (11:35)
--- NOTE | 2019-05-30 12:40 | PN ---
Progress Note, Physician Chief Complaint: no palpitation no discomfort - Current Medication List Current Medications: Active Medications Acetaminophen (Tylenol -) 650 mg PO Q4H PRN PRN Reason: PAIN LEVEL 1-5 Last Admin: 05/28/19 20:54 Dose: 650 mg Aspirin (Ecotrin -) 81 mg PO DAILY [facility] Last Admin: 05/30/19 09:51 Dose: 81 mg Atorvastatin Calcium (Lipitor -) 40 mg PO HS [facility] Last Admin: 05/29/19 22:21 Dose: 40 mg Bacitracin (Bacitracin -) 1 applic TP DAILY [facility] Last Admin: 05/30/19 09:52 Dose: 1 applic Carvedilol (Coreg -) 6.25 mg PO BID [facility] Last Admin: 05/30/19 09:52 Dose: 6.25 mg Digoxin (Lanoxin -) 0.25 mg PO DAILY [facility] Last Admin: 05/30/19 09:51 Dose: 0.25 mg Folic Acid (Folic Acid -) 1 mg PO DAILY [facility] Last Admin: 05/30/19 09:51 Dose: 1 mg Furosemide (Lasix Injection -) 40 mg IVPUSH BID@0600,1400 [facility] Last Admin: 05/30/19 06:34 Dose: 40 mg Heparin Sodium (Porcine) (Heparin -) 5,000 unit SQ BID [facility] Last Admin: 05/30/19 09:52 Dose: 5,000 unit Cefazolin Sodium 1 gm/ (Dextrose) 50 mls @ 100 mls/hr IVPB Q8H-IV [facility] Last Admin: 05/30/19 09:52 Dose: 100 mls/hr Morphine Sulfate (Morphine 100mg/100ml-0.9% Nacl) 100 mg in 100 mls @ 1 mls/hr IVPB TITR [facility]; Protocol Levalbuterol HCl (Xopenex) 0.63 mg IH RTID [facility] Last Admin: 05/30/19 08:01 Dose: 0.63 mg Melatonin (Melatonin) 10 mg PO HS [facility] Last Admin: 05/29/19 22:22 Dose: 10 mg Mirtazapine (Remeron -) 7.5 mg PO HS [facility] Last Admin: 05/29/19 22:21 Dose: 7.5 mg Morphine Sulfate (Morphine Sulfate) 2 mg IVPUSH Q4H PRN PRN Reason: dyspnea Last Admin: 05/30/19 11:35 Dose: 2 mg Potassium Chloride (Potassium Chloride Oral Liquid) 40 meq PO DAILY [facility] Last Admin: 05/30/19 09:51 Dose: 40 meq Scopolamine HBr (Transderm-Scop -) 1 patch TD Q72H [facility] Last Admin: 05/30/19 12:17 Dose: 1 patch Simethicone (Mylicon -) 80 mg PO Q4H PRN PRN Reason: GAS Tamsulosin HCl (Flomax -) 0.4 mg PO DAILY@0830 [facility] Last Admin: 05/30/19 09:51 Dose: 0.4 mg Thiamine HCl (Vitamin B1 -) 100 mg PO DAILY [facility] Last Admin: 05/30/19 09:51 Dose: 100 mg - Objective Vital Signs: Vital Signs Temperature 98.4 F 05/30/19 08:00 Pulse Rate 116 H 05/30/19 09:51 Respiratory Rate 28 H 05/30/19 09:00 Blood Pressure 148/77 05/30/19 08:00 O2 Sat by Pulse Oximetry (%) 92 L 05/30/19 09:00 Constitutional: Yes: Calm Eyes: Yes: EOM Intact HENT: Yes: Normocephalic Neck: Yes: Trachea Midline Cardiovascular: Yes: Tachycardia Respiratory: Yes: CTA Bilaterally Gastrointestinal: Yes: Normal Bowel Sounds ...Rectal Exam: Yes: Deferred Genitourinary: Yes: WNL Musculoskeletal: Yes: Muscle Weakness Extremities: Yes: Delayed Capillary Refill, Erythema Neurological: Yes: Alert, Oriented Labs: CBC, BMP 05/29/19 06:00 05/29/19 06:05 INR, PTT INR 1.22 (0.83-1.09) H 05/25/19 16:48 Problem List - Problems (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 WITHOUT THYROTOXIC CRISIS OR STORM (2) Afib Code(s): I48.91 - UNSPECIFIED ATRIAL FIBRILLATION (3) Atrial flutter Code(s): I48.92 - UNSPECIFIED ATRIAL FLUTTER (4) COPD (chronic obstructive pulmonary disease) Code(s): J44.9 - CHRONIC OBSTRUCTIVE PULMONARY DISEASE, UNSPECIFIED (5) HLD (hyperlipidemia) Code(s): E78.5 - HYPERLIPIDEMIA, UNSPECIFIED (6) HTN (hypertension) Code(s): I10 - ESSENTIAL (PRIMARY) HYPERTENSION Assessment/Plan Current Active Problems SHIMA (acute kidney injury) (Acute) Acute on chronic respiratory failure with hypoxia and hypercapnia (Acute) Afib (Acute) Atrial flutter (Acute) CHF exacerbation (Acute) COPD (chronic obstructive pulmonary disease) (Acute) Cellulitis (Acute) HLD (hyperlipidemia) (Acute) HTN (hypertension) (Acute) Hypothyroid (Acute) Jod-Basedow phenomenon (Acute) New onset of congestive heart failure (Acute) Pleural effusion (Acute) Laboratory Tests 05/28/19 06:20 TSH 4.89 H D Free T4 1.24 H plan: repeat free t4 tsh when improved free t4 normal resume synthroid 25mcg daily
--- NOTE | 2019-05-30 13:11 | PN ---
Progress Note, Physician Chief Complaint: SOB RAFIB History of Present Illness: This is a 73 year old male NHR with a PMH of HTN, HLD, COPD on home O2, and past AFIB. He has know CAD with a past stent in 2007 at [facility]. He is known to have chronic bilateral LE edema. [place] [facility] with worsening b/l LE edema, erythema, cellulitis, and SOB. HR remains elevated (HR 118) and still with SOB. Echocardiogram 05/29/2019: EF 35% Moderate to severe anterior wall hypokinesis Apical Akinesis Moderately dilated RV Moderately reduced RV function LAE Mild to moderate MR Moderate TR RVSP 40 mmHg - Current Medication List Current Medications: Active Medications Acetaminophen (Tylenol -) 650 mg PO Q4H PRN PRN Reason: PAIN LEVEL 1-5 Last Admin: 05/28/19 20:54 Dose: 650 mg Aspirin (Ecotrin -) 81 mg PO DAILY [facility] Last Admin: 05/30/19 09:51 Dose: 81 mg Atorvastatin Calcium (Lipitor -) 40 mg PO HS [facility] Last Admin: 05/29/19 22:21 Dose: 40 mg Bacitracin (Bacitracin -) 1 applic TP DAILY [facility] Last Admin: 05/30/19 09:52 Dose: 1 applic Carvedilol (Coreg -) 6.25 mg PO BID [facility] Last Admin: 05/30/19 09:52 Dose: 6.25 mg Digoxin (Lanoxin -) 0.25 mg PO DAILY [facility] Last Admin: 05/30/19 09:51 Dose: 0.25 mg Folic Acid (Folic Acid -) 1 mg PO DAILY [facility] Last Admin: 05/30/19 09:51 Dose: 1 mg Furosemide (Lasix Injection -) 40 mg IVPUSH BID@0600,1400 [facility] Last Admin: 05/30/19 06:34 Dose: 40 mg Heparin Sodium (Porcine) (Heparin -) 5,000 unit SQ BID [facility] Last Admin: 05/30/19 09:52 Dose: 5,000 unit Cefazolin Sodium 1 gm/ (Dextrose) 50 mls @ 100 mls/hr IVPB Q8H-IV [facility] Last Admin: 05/30/19 09:52 Dose: 100 mls/hr Morphine Sulfate (Morphine 100mg/100ml-0.9% Nacl) 100 mg in 100 mls @ 1 mls/hr IVPB TITR [facility]; Protocol Levalbuterol HCl (Xopenex) 0.63 mg IH RTID [facility] Last Admin: 05/30/19 08:01 Dose: 0.63 mg Melatonin (Melatonin) 10 mg PO HS [facility] Last Admin: 05/29/19 22:22 Dose: 10 mg Mirtazapine (Remeron -) 7.5 mg PO HS [facility] Last Admin: 05/29/19 22:21 Dose: 7.5 mg Morphine Sulfate (Morphine Sulfate) 2 mg IVPUSH Q4H PRN PRN Reason: dyspnea Last Admin: 05/30/19 11:35 Dose: 2 mg Potassium Chloride (Potassium Chloride Oral Liquid) 40 meq PO DAILY [facility] Last Admin: 05/30/19 09:51 Dose: 40 meq Scopolamine HBr (Transderm-Scop -) 1 patch TD Q72H [facility] Last Admin: 05/30/19 12:17 Dose: 1 patch Simethicone (Mylicon -) 80 mg PO Q4H PRN PRN Reason: GAS Tamsulosin HCl (Flomax -) 0.4 mg PO DAILY@0830 [facility] Last Admin: 05/30/19 09:51 Dose: 0.4 mg Thiamine HCl (Vitamin B1 -) 100 mg PO DAILY [facility] Last Admin: 05/30/19 09:51 Dose: 100 mg - Objective Vital Signs: Vital Signs Temperature 98.4 F 05/30/19 08:00 Pulse Rate 116 H 05/30/19 09:51 Respiratory Rate 28 H 05/30/19 09:00 Blood Pressure 148/77 05/30/19 08:00 O2 Sat by Pulse Oximetry (%) 92 L 05/30/19 09:00 Constitutional: Yes: No Distress Eyes: Yes: WNL HENT: Yes: Nasal Congestion Neck: Yes: WNL Cardiovascular: Yes: Regular Rate and Rhythm, S1, S2 (2/6 [facility]) Respiratory: Yes: On BiPap, Rhonchi Gastrointestinal: Yes: Soft Edema: Yes Edema: LLE: Trace, RLE: Trace Labs: CBC, BMP 05/29/19 06:00 05/29/19 06:05 INR, PTT INR 1.22 (0.83-1.09) H 05/25/19 16:48 Assessment/Plan 73 year old male NHR with a PMH of HTN, HLD, COPD on home O2, and past AFIB. He has know CAD with a past stent in 2007 at [facility]. He is known to have chronic bilateral LE edema. [place] [facility] with worsening b/l LE edema, erythema, cellulitis, and SOB. Echocardiogram 05/29/2019: EF 35% Moderate to severe anterior wall hypokinesis Apical Akinesis Moderately dilated RV Moderately reduced RV function LAE Mild to moderate MR Moderate TR RVSP 40 mmHg LE edema-acute on chronic -likely chronic venous insufficiency as well as acute on chronic CHF unknown type -superimposed cellulitis -cont Abx as per ID reccs -cont Furosemide (Lasix Injection -) 40 mg IVPUSH BID -monitor strict I/Os, daily weights, bun/creat, electrolytes and replete as needed Arrhythmia-reported h/o AFib but pt unaware of this diagnosis and denies ever being on full AC -Noted on Telem and EKG to have atrial flutter, no AC for now until more PMH can be obtained (was he intolerant to AC prior?) -cont Coreg 6.25mg bid -If HR's are still elevated, increase COREG to 12.5 mg PO BID, if BP tolerates -Continue Digoxin -Obtain a repeat 12 lead EKG SOB -likely multifactorial due to volume overload as above as well as COPD -Conitnue current therapy
--- NOTE | 2019-05-30 13:43 | PN ---
Progress Note, Physician History of Present Illness: Pt seen and examined at bedside. He is awake and alert today. He feels that his breathing is improving. He does however require bipap. - Current Medication List Current Medications: Active Medications Acetaminophen (Tylenol -) 650 mg PO Q4H PRN PRN Reason: PAIN LEVEL 1-5 Last Admin: 05/28/19 20:54 Dose: 650 mg Aspirin (Ecotrin -) 81 mg PO DAILY [facility] Last Admin: 05/30/19 09:51 Dose: 81 mg Atorvastatin Calcium (Lipitor -) 40 mg PO HS [facility] Last Admin: 05/29/19 22:21 Dose: 40 mg Bacitracin (Bacitracin -) 1 applic TP DAILY [facility] Last Admin: 05/30/19 09:52 Dose: 1 applic Carvedilol (Coreg -) 6.25 mg PO BID [facility] Last Admin: 05/30/19 09:52 Dose: 6.25 mg Digoxin (Lanoxin -) 0.25 mg PO DAILY [facility] Last Admin: 05/30/19 09:51 Dose: 0.25 mg Folic Acid (Folic Acid -) 1 mg PO DAILY [facility] Last Admin: 05/30/19 09:51 Dose: 1 mg Furosemide (Lasix Injection -) 40 mg IVPUSH BID@0600,1400 [facility] Last Admin: 05/30/19 13:38 Dose: 40 mg Heparin Sodium (Porcine) (Heparin -) 5,000 unit SQ BID [facility] Last Admin: 05/30/19 09:52 Dose: 5,000 unit Cefazolin Sodium 1 gm/ (Dextrose) 50 mls @ 100 mls/hr IVPB Q8H-IV [facility] Last Admin: 05/30/19 09:52 Dose: 100 mls/hr Morphine Sulfate (Morphine 100mg/100ml-0.9% Nacl) 100 mg in 100 mls @ 1 mls/hr IVPB TITR [facility]; Protocol Levalbuterol HCl (Xopenex) 0.63 mg IH RTID [facility] Last Admin: 05/30/19 08:01 Dose: 0.63 mg Melatonin (Melatonin) 10 mg PO HS [facility] Last Admin: 05/29/19 22:22 Dose: 10 mg Mirtazapine (Remeron -) 7.5 mg PO HS [facility] Last Admin: 05/29/19 22:21 Dose: 7.5 mg Morphine Sulfate (Morphine Sulfate) 2 mg IVPUSH Q4H PRN PRN Reason: dyspnea Last Admin: 05/30/19 11:35 Dose: 2 mg Potassium Chloride (Potassium Chloride Oral Liquid) 40 meq PO DAILY [facility] Last Admin: 05/30/19 09:51 Dose: 40 meq Scopolamine HBr (Transderm-Scop -) 1 patch TD Q72H [facility] Last Admin: 05/30/19 12:17 Dose: 1 patch Simethicone (Mylicon -) 80 mg PO Q4H PRN PRN Reason: GAS Tamsulosin HCl (Flomax -) 0.4 mg PO DAILY@0830 [facility] Last Admin: 05/30/19 09:51 Dose: 0.4 mg Thiamine HCl (Vitamin B1 -) 100 mg PO DAILY [facility] Last Admin: 05/30/19 09:51 Dose: 100 mg - Objective Vital Signs: Vital Signs Temperature 98.4 F 05/30/19 08:00 Pulse Rate 116 H 05/30/19 09:51 Respiratory Rate 28 H 05/30/19 09:00 Blood Pressure 148/77 05/30/19 08:00 O2 Sat by Pulse Oximetry (%) 92 L 05/30/19 09:00 Constitutional: Yes: Calm Eyes: Yes: Conjunctiva Clear HENT: Yes: Atraumatic Neck: Yes: Supple Cardiovascular: Yes: S1, S2 Respiratory: Yes: CTA Bilaterally Genitourinary: Yes: WNL Edema: Yes Edema: LLE: 1+, RLE: 1+ Neurological: Yes: Oriented Psychiatric: Yes: Oriented Labs: CBC, BMP 05/29/19 06:00 05/29/19 06:05 INR, PTT INR 1.22 (0.83-1.09) H 05/25/19 16:48 Problem List - Problems (1) SHIMA (acute kidney injury) Code(s): N17.9 - ACUTE KIDNEY FAILURE, UNSPECIFIED (2) CHF exacerbation Code(s): I50.9 - HEART FAILURE, UNSPECIFIED (3) Cellulitis Code(s): L03.90 - CELLULITIS, UNSPECIFIED Assessment/Plan Current Medications Generic Name Dose Route Start Last Admin Trade Name Freq PRN Reason Stop Dose Admin Acetaminophen 650 mg 05/26/19 18:37 05/28/19 20:54 Tylenol - PO 650 mg Q4H PRN Administration PAIN LEVEL 1-5 Aspirin 81 mg 05/26/19 10:00 05/30/19 09:51 Ecotrin - PO 81 mg DAILY [facility] Administration Atorvastatin Calcium 40 mg 05/26/19 22:00 05/29/19 22:21 Lipitor - PO 40 mg HS [facility] Administration Bacitracin 1 applic 05/28/19 10:00 05/30/19 09:52 Bacitracin - TP 1 applic DAILY [facility] Administration Carvedilol 6.25 mg 05/29/19 10:30 05/30/19 09:52 Coreg - PO 6.25 mg BID [facility] Administration Digoxin 0.25 mg 05/30/19 10:00 05/30/19 09:51 Lanoxin - PO 0.25 mg DAILY [facility] Administration Folic Acid 1 mg 05/26/19 10:00 05/30/19 09:51 Folic Acid - PO 1 mg DAILY [facility] Administration Furosemide 40 mg 05/26/19 06:00 05/30/19 13:38 Lasix Injection - IVPUSH 40 mg BID@0600,1400 [facility] Administration Heparin Sodium (Porcine) 5,000 unit 05/26/19 22:00 05/30/19 09:52 Heparin - SQ 5,000 unit BID [facility] Administration Cefazolin Sodium 1 gm/ 50 mls @ 100 mls/hr 05/26/19 11:00 05/30/19 09:52 Dextrose IVPB 100 mls/hr Q8H-IV [facility] Administration Morphine Sulfate 100 mg in 100 mls @ 1 mls/hr 05/30/19 10:45 Morphine 100mg/100ml-0.9% Nacl IVPB TITR [facility] Protocol 1 MG/HR Levalbuterol HCl 0.63 mg 05/27/19 16:15 05/30/19 08:01 Xopenex IH 0.63 mg RTID [facility] Administration Melatonin 10 mg 05/26/19 22:00 05/29/19 22:22 Melatonin PO 10 mg HS [facility] Administration Mirtazapine 7.5 mg 05/25/19 23:46 05/29/19 22:21 Remeron - PO 7.5 mg HS [facility] Administration Morphine Sulfate 2 mg 05/28/19 18:29 05/30/19 11:35 Morphine Sulfate IVPUSH 2 mg Q4H PRN Administration dyspnea Potassium Chloride 40 meq 05/28/19 10:00 05/30/19 09:51 Potassium Chloride Oral Liquid PO 40 meq DAILY [facility] Administration Scopolamine HBr 1 patch 05/30/19 10:45 05/30/19 12:17 Transderm-Scop - TD 1 patch Q72H [facility] Administration Simethicone 80 mg 05/28/19 02:18 Mylicon - PO Q4H PRN GAS Tamsulosin HCl 0.4 mg 05/26/19 08:30 05/30/19 09:51 Flomax - PO 0.4 mg DAILY@0830 [facility] Administration Thiamine HCl 100 mg 05/26/19 10:00 05/30/19 09:51 Vitamin B1 - PO 100 mg DAILY [facility] Administration Impression 1. SHIMA 2. CHF 3. COPD 4. a-fib 5. cad 6. cva 7. hypokalemia Plan - title assistant worsening - volume status improving - repeat labs in am - con bipap - avoid nsaids
[2019-05-30] MEDS ORDERED: MORPHINE SULFATE/0.9% NACL/PF 100 MG/100 ML BAG IVPB SCH (15:00)
[2019-05-31] MEDS ORDERED: LEVOTHYROXINE NA 25 MCG TABLET (FP) PO SCH (07:00)
[2019-05-31] MEDS ORDERED: LEVOTHYROXINE NA 50 MCG TABLET (FP) PO SCH (07:00)
--- NOTE | 2019-05-31 08:54 | PN ---
Progress Note, Physician - Current Medication List Current Medications: Active Medications Bacitracin (Bacitracin -) 1 applic TP DAILY [facility] Morphine Sulfate (Morphine 100mg/100ml-0.9% Nacl) 100 mg in 100 mls @ 1 mls/hr IVPB TITR [facility]; Protocol Last Admin: 05/30/19 15:41 Dose: 1 mg/hr, 1 mls/hr Levothyroxine Sodium (Synthroid -) 25 mcg PO DAILY@0700 [facility] Last Admin: 05/31/19 06:26 Dose: Not Given Scopolamine HBr (Transderm-Scop -) 1 patch TD Q72H [facility] Last Admin: 05/30/19 12:17 Dose: 1 patch - Objective Vital Signs: Vital Signs Temperature 98.0 F 05/31/19 06:07 Pulse Rate 118 H 05/31/19 06:07 Respiratory Rate 20 05/31/19 06:07 Blood Pressure 128/67 05/31/19 06:07 O2 Sat by Pulse Oximetry (%) 92 L 05/31/19 08:03 Cardiovascular: Yes: S1, S2 Respiratory: Yes: On BiPap Gastrointestinal: Yes: Normal Bowel Sounds, Soft Labs: CBC, BMP 05/29/19 06:00 05/29/19 06:05 INR, PTT INR 1.22 (0.83-1.09) H 05/25/19 16:48 Assessment/Plan chf copd respiratory failure plan palliative care comfort care hospice
[2019-05-31] MEDS ORDERED: BACITRACIN 15 GM TUBE TOPICAL OINTMENT TP SCH (10:00)
--- NOTE | 2019-05-31 12:54 | PN ---
Progress Note, Physician History of Present Illness: PULMONARY LETHARGIC ON BIPAP,-RESP DISTRESS - Current Medication List Current Medications: Active Medications Bacitracin (Bacitracin -) 1 applic TP DAILY [facility] Last Admin: 05/31/19 10:07 Dose: 1 applic Morphine Sulfate (Morphine 100mg/100ml-0.9% Nacl) 100 mg in 100 mls @ 1 mls/hr IVPB TITR [facility]; Protocol Last Admin: 05/30/19 15:41 Dose: 1 mg/hr, 1 mls/hr Levothyroxine Sodium (Synthroid -) 25 mcg PO DAILY@0700 [facility] Last Admin: 05/31/19 06:26 Dose: Not Given Scopolamine HBr (Transderm-Scop -) 1 patch TD Q72H [facility] Last Admin: 05/30/19 12:17 Dose: 1 patch - Objective Vital Signs: Vital Signs Temperature 97.9 F 05/31/19 10:00 Pulse Rate 108 H 05/31/19 10:00 Respiratory Rate 20 05/31/19 10:00 Blood Pressure 126/66 05/31/19 10:00 O2 Sat by Pulse Oximetry (%) 92 L 05/31/19 10:00 Constitutional: Yes: Well Nourished, Other (LETHARGIC) Eyes: Yes: WNL HENT: Yes: WNL Neck: Yes: WNL Cardiovascular: Yes: Pulse Irregular, S1, S2 Respiratory: Yes: On BiPap (SCATTERED RALES AND RHONCHI), Rales, Rhonchi Gastrointestinal: Yes: Normal Bowel Sounds, Soft Extremities: Yes: Calf Tenderness Edema: Yes Labs: CBC, BMP Problem List - Problems (1) Acute on chronic respiratory failure with hypoxia and hypercapnia Code(s): J96.21 - ACUTE AND CHRONIC RESPIRATORY FAILURE WITH HYPOXIA; J96.22 - ACUTE AND CHRONIC RESPIRATORY FAILURE WITH HYPERCAPNIA (2) HLD (hyperlipidemia) Code(s): E78.5 - HYPERLIPIDEMIA, UNSPECIFIED (3) HTN (hypertension) Code(s): I10 - ESSENTIAL (PRIMARY) HYPERTENSION Assessment/Plan Problem List - Problems (1) Afib Code(s): I48.91 - UNSPECIFIED ATRIAL FIBRILLATION (2) CHF exacerbation Code(s): I50.9 - HEART FAILURE, UNSPECIFIED (3) COPD (chronic obstructive pulmonary disease) Code(s): J44.9 - CHRONIC OBSTRUCTIVE PULMONARY DISEASE, UNSPECIFIED (4) Cellulitis Code(s): L03.90 - CELLULITIS, UNSPECIFIED Assessment/Plan COPD AND PL EFFUSION ON CXR/NO PE ACUTE ON CHRONIC HYPOXEMIC/HYPERCAPNEIC RESPIRATORY FAILURE PULMONARY HTN CHF CONTINUE O2, CONTINUE NIPPV IF PT COMPLIES BRONCHODILATORS ABG F/U CHEST X-RAYS DR MCMILLAN Problem List - Problems (1) Afib Code(s): I48.91 - UNSPECIFIED ATRIAL FIBRILLATION (2) CHF exacerbation Code(s): I50.9 - HEART FAILURE, UNSPECIFIED (3) COPD (chronic obstructive pulmonary disease) Code(s): J44.9 - CHRONIC OBSTRUCTIVE PULMONARY DISEASE, UNSPECIFIED (4) Cellulitis Code(s): L03.90 - CELLULITIS, UNSPECIFIED
[2019-05-31] MEDS ORDERED: MORPHINE SULFATE/0.9% NACL/PF 100 MG/100 ML BAG IVPB SCH (14:00)
--- NOTE | 2019-05-31 14:06 | PN ---
Progress Note, Physician History of Present Illness: Pt seen and examined at bedside. He is now on comfort care. - Current Medication List Current Medications: Active Medications Bacitracin (Bacitracin -) 1 applic TP DAILY [facility] Last Admin: 05/31/19 10:07 Dose: 1 applic Morphine Sulfate (Morphine 100mg/100ml-0.9% Nacl) 100 mg in 100 mls @ 2 mls/hr IVPB TITR [facility]; Protocol Last Admin: 05/31/19 14:01 Dose: 2 mg/hr, 2 mls/hr Levothyroxine Sodium (Synthroid -) 25 mcg PO DAILY@0700 [facility] Last Admin: 05/31/19 06:26 Dose: Not Given Scopolamine HBr (Transderm-Scop -) 1 patch TD Q72H [facility] Last Admin: 05/30/19 12:17 Dose: 1 patch - Objective Vital Signs: Vital Signs Temperature 97.9 F 05/31/19 10:00 Pulse Rate 108 H 05/31/19 10:00 Respiratory Rate 20 05/31/19 10:00 Blood Pressure 126/66 05/31/19 10:00 O2 Sat by Pulse Oximetry (%) 92 L 05/31/19 10:00 Constitutional: Yes: Calm Eyes: Yes: Conjunctiva Clear HENT: Yes: Atraumatic Neck: Yes: Supple Cardiovascular: Yes: S1, S2 Respiratory: Yes: On BiPap Genitourinary: Yes: WNL Edema: Yes Edema: LLE: 1+, RLE: 1+ Neurological: Yes: Lethargy Labs: CBC, BMP 05/29/19 06:00 05/29/19 06:05 INR, PTT INR 1.22 (0.83-1.09) H 05/25/19 16:48 Problem List - Problems (1) SHIMA (acute kidney injury) Code(s): N17.9 - ACUTE KIDNEY FAILURE, UNSPECIFIED (2) CHF exacerbation Code(s): I50.9 - HEART FAILURE, UNSPECIFIED (3) Cellulitis Code(s): L03.90 - CELLULITIS, UNSPECIFIED Assessment/Plan Current Medications Generic Name Dose Route Start Last Admin Trade Name Freq PRN Reason Stop Dose Admin Bacitracin 1 applic 05/31/19 10:00 05/31/19 10:07 Bacitracin - TP 1 applic DAILY [facility] Administration Morphine Sulfate 100 mg in 100 mls @ 2 mls/hr 05/31/19 14:00 05/31/19 14:01 Morphine 100mg/100ml-0.9% Nacl IVPB 2 mg/hr TITR STEVE 2 mls/hr Administration Protocol 2 MG/HR Levothyroxine Sodium 25 mcg 05/31/19 07:00 05/31/19 06:26 Synthroid - PO Not Given DAILY@0700 [facility] Scopolamine HBr 1 patch 05/30/19 10:45 05/30/19 12:17 Transderm-Scop - TD 1 patch Q72H [facility] Administration Impression 1. SHIMA 2. CHF 3. COPD 4. a-fib 5. cad 6. cva 7. hypokalemia Plan - pt now on comfort care - no new labs - will follow prn
--- NOTE | 2019-05-31 15:37 | PN ---
Progress Note, Physician Chief Complaint: Clinically improving History of Present Illness: This is a 73 year old male NHR with a PMH of HTN, HLD, COPD on home O2, and past AFIB. He has know CAD with a past stent in 2007 at [facility]. He is known to have chronic bilateral LE edema. He was admitted from [place] [facility] with worsening b/l LE edema, erythema, cellulitis, and SOB. HR remains elevated (HR 118) and still with SOB. Echocardiogram 05/29/2019: EF 35% Moderate to severe anterior wall hypokinesis Apical Akinesis Moderately dilated RV Moderately reduced RV function LAE Mild to moderate MR Moderate TR RVSP 40 mmHg - Current Medication List Current Medications: Active Medications Bacitracin (Bacitracin -) 1 applic TP DAILY [facility] Last Admin: 05/31/19 10:07 Dose: 1 applic Morphine Sulfate (Morphine 100mg/100ml-0.9% Nacl) 100 mg in 100 mls @ 2 mls/hr IVPB TITR [facility]; Protocol Last Admin: 05/31/19 14:01 Dose: 2 mg/hr, 2 mls/hr Levothyroxine Sodium (Synthroid -) 25 mcg PO DAILY@0700 [facility] Last Admin: 05/31/19 06:26 Dose: Not Given Scopolamine HBr (Transderm-Scop -) 1 patch TD Q72H [facility] Last Admin: 05/30/19 12:17 Dose: 1 patch - Objective Vital Signs: Vital Signs Temperature 98.0 F 05/31/19 14:00 Pulse Rate 92 H 05/31/19 14:00 Respiratory Rate 16 05/31/19 14:00 Blood Pressure 98/60 05/31/19 14:00 O2 Sat by Pulse Oximetry (%) 92 L 05/31/19 10:00 Constitutional: Yes: No Distress Eyes: Yes: WNL HENT: Yes: WNL Neck: Yes: WNL Cardiovascular: Yes: Regular Rate and Rhythm, S1, S2 Respiratory: Yes: Rhonchi (Bipap) Edema: RUE: Trace, LLE: Trace Labs: CBC, BMP 05/29/19 06:00 05/29/19 06:05 INR, PTT INR 1.22 (0.83-1.09) H 05/25/19 16:48 Assessment/Plan 73 year old male N[facility] with a PMH of HTN, HLD, COPD on home O2, and past AFIB. He has know CAD with a past stent in 2007 at [facility]. He is known to have chronic bilateral LE edema. He was admitted from the [place] [facility] with worsening b/l LE edema, erythema, cellulitis, and SOB. Echocardiogram 05/29/2019: EF 35% Moderate to severe anterior wall hypokinesis Apical Akinesis Moderately dilated RV Moderately reduced RV function LAE Mild to moderate MR Moderate TR RVSP 40 mmHg LE edema-acute on chronic Improved with diuretics Arrhythmia-reported h/o AFib but pt unaware of this diagnosis and denies ever being on full AC Noted on Telem and EKG to have atrial flutter, no AC for now Please obtain a repeat 12 lead EKG to reevaluate rhythm HR 92 BPM presently SOB -likely multifactorial due to volume overload as above as well as COPD S/P diuresis Bronchodialators Avoid beta blockers given reactive airway disease
[2019-05-31 19:03] VITALS: BP 137/82; PULSE 98; TEMP 99.1
--- NOTE | 2019-06-01 05:12 | PN ---
Progress Note (short form) - Note Progress Note: Called by nurse patient . Patient was on comfort care ad on IV morphine gtt. Patient was seen and examined at bedside. Patient with no pulse and not breathing. Patient pronounced at 9:54pm. Family at bedside. Visit type - Emergency Visit Emergency Visit: Yes ED Registration Date: 05/25/19 Care time: The patient presented to the Emergency Department on the above date and was hospitalized for further evaluation of their emergent condition. - New Patient This patient is new to me today: Yes Date on this admission: 06/01/19 - Critical Care Critical Care patient: No - Discharge Referral Referred to [facility] No
== END 2019-05-31 23:39 | disposition expired | DRG 189 ==
LOC: JER 14:07 → JERBED 20:40 → J4W 23:35 → J6S 05-30 14:04
PROVIDERS: ADMIT Internal Medicine; ATTEND Family Medicine
DX: J96.21 Acute and chronic respiratory failure with hypoxia (principal); J44.1 Chronic obstructive pulmonary disease with (acute) exacerbation; L03.115 Cellulitis of right lower limb; I48.92 Unspecified atrial flutter; J90 Pleural effusion, not elsewhere classified; N17.9 Acute kidney failure, unspecified; L03.116 Cellulitis of left lower limb; J96.22 Acute and chronic respiratory failure with hypercapnia; J44.9 Chronic obstructive pulmonary disease, unspecified; E78.5 Hyperlipidemia, unspecified; I87.2 Venous insufficiency (chronic) (peripheral); I46.9 Cardiac arrest, cause unspecified; I25.10 Atherosclerotic heart disease of native coronary artery without angina pectoris; Z95.5 Presence of coronary angioplasty implant and graft; I10 Essential (primary) hypertension; I48.91 Unspecified atrial fibrillation; I27.20 Pulmonary hypertension, unspecified; E87.6 Hypokalemia; E87.70 Fluid overload, unspecified; E03.9 Hypothyroidism, unspecified; E66.9 Obesity, unspecified; Z68.27 Body mass index [BMI] 27.0-27.9, adult; I50.9 Heart failure, unspecified
CPT/HCPCS: 36415; 36600; 71045-TC-FY; 71275-TC; 76775-TC; 80048; 80053; 80061; 81003; 82803; 83036; 83605; 83721; 83880; 84439; 84443; 84480; 84484; 85025; 85610; 85730; 87040; 87086; 93005; 93010; 93306-TC; 93970-TC; 94640; 94660; 97116-GP; 97161-GP; 99285-25; J1644; J7030